=== PATIENT | male | born 1985 | race Caucasian/White ===

== ENCOUNTER 2024-11-22 02:09 | Observation (INO) | payer OTHER ==
[2024-11-22 02:19] VITALS: TEMP 97.8
--- NOTE | 2024-11-22 03:33 | ED ---
General Adult HPI - General Chief complaint: Psychiatric Symptoms Stated complaint: SI Time Seen by Provider: 11/22/24 02:34 Source: patient Mode of arrival: EMS - History of Present Illness Initial comments: Patient is a 39-year-old gentleman presenting today for suicidal thoughts and anxiety. States that he does not have a plan though feels like he does not want to be alive. Has worsened over the last 2 weeks especially over [place]. States he also has been getting panic attacks and when he feels especially emotional has episodes of syncope. Denies hx sudden cardiac , seizures. Denies tongue biting or incontinence with episodes of syncope. Denies chest pain or GALLO. Denies illicit drug use or alcohol use. Denies recent head trauma from episodes of syncope. Denies homicidal ideations, visual or auditory hallucinations. - Related Data Previous Rx's Medication Instructions Recorded Acetaminophen Tab [Tylenol] 650 mg PO Q6HR PRN tab 11/23/24 Calcium Carbonate [Tums] 1,000 mg PO Q4HR PRN tab 11/23/24 Famotidine [Pepcid] 20 mg PO BID tab 11/23/24 Nicotine 14Mg/24Hr Patch [Habitrol] 1 patch TRANSDERM DAILY patch 11/23/24 Allergies Allergy/AdvReac Type Severity Reaction Status Date / Time lisinopril Allergy Unknown - Verified 11/22/24 07:53 see comment Review of Systems ROS Statement: Those systems with pertinent positive or pertinent negative responses have been documented in the HPI. ROS Other: All systems not noted in ROS Statement are negative. Past Medical History Past Medical History: Hypertension Past Surgical History: No Surgical Hx Reported Smoking Status: Vaper Past Alcohol Use History: None Reported, Occasional Past Drug Use History: Marijuana General Exam - General Exam Comments Initial Comments: PE: CONSTITUTIONAL: No apparent distress, well appearing, somewhat disheveled SKIN: Warm, dry, no jaundice, hives or petechiae EYES: Pupils are equally round, extraocular movements intact without nystagmus, clear conjunctiva, non-icteric sclera HENT: Normocephalic, atraumatic, moist mucus membranes, oropharynx clear without exudates NECK: , Full range of motion, normal appearance PULMONARY: Clear to auscultation without wheezes, rhonchi, or rales, normal excursion, no accessory muscle use and no stridor CARDIOVASCULAR: Regular rate, rhythm, normal S1 and S2. No appreciated murmurs, rubs or gallops. Extremities well perfused, No lower extremity edema GASTROINTESTINAL: Soft, active bowel sounds throughout, non-tender, non- distended, no palpable masses, no rebound or guarding. No hepatosplenomegaly GENITOURINARY: MUSCULOSKELETAL: Extremities have no gross deformity, no edema, redness, or swelling. No calf swelling NEUROLOGIC:_a/o x 3, GCS 15, normal mentation and speech. Moves all extremities x 4 without motor or sensory deficit PSYCHIATRIC: Tearful and sad mood and affect, thought process is clear and linear, suicidal thoughts without a plan Course Vital Signs 11/22/24 11/22/24 11/22/24 02:10 06:19 13:25 Temperature 97.8 F Pulse Rate 120 H 98 89 Respiratory 18 17 18 Rate Blood Pressure 177/129 102/54 111/64 Blood Pressure [Right Arm Sitting] Blood Pressure [Right Arm Standing] Blood Pressure [Right Arm Supine] O2 Sat by Pulse 96 98 99 Oximetry 11/22/24 11/22/24 11/22/24 16:00 20:43 23:13 Temperature Pulse Rate 86 107 H 93 Respiratory 18 16 18 Rate Blood Pressure 119/65 148/85 124/70 Blood Pressure 106/68 [Right Arm Sitting] Blood Pressure 110/78 [Right Arm Standing] Blood Pressure 119/65 [Right Arm Supine] O2 Sat by Pulse 99 97 99 Oximetry 11/23/24 11/23/24 11/23/24 06:04 09:46 14:01 Temperature 97.8 F Pulse Rate 72 74 73 Respiratory 17 16 18 Rate Blood Pressure 111/86 104/72 114/72 Blood Pressure [Right Arm Sitting] Blood Pressure [Right Arm Standing] Blood Pressure [Right Arm Supine] O2 Sat by Pulse 99 99 Oximetry EKG Findings - EKG Comments: EKG Findings:: Sinus rhythm, rate 90 bpm, NV interval 181 41 ms, QT/QTc 327/375 ms, normal axis, no ST elevations or depressions, no arrhythmia, artifact present throughout Medical Decision Making - Medical Decision Making Was pt. sent in by a medical professional or institution (, PA, ESTATE ADMINISTRATOR, urgent care, hospital, or longterm...) When possible be specific @ -No Did you speak to anyone other than the patient for history (EMS, parent, family, police, friend...)? What history was obtained from this source @ -No Did you review nursing and triage notes (agree or disagree)? Why? @ -I reviewed and agree with nursing and triage notes Were old charts reviewed (outside hosp., previous admission, EMS record, old EKG, old radiological studies, urgent care reports/EKG's, longterm records)? Report findings @Medical records reviewed Differential Diagnosis (chest pain, altered mental status, abdominal pain women, abdominal pain men, vaginal bleeding, weakness, fever, dyspnea, syncope, headache, dizziness, GI bleed, back pain, seizure, CVA, palpatations, mental health, musculoskeletal)? @ -Differential Mental Health Depression, anxiety, bipolar, psychosis, schizophrenia, borderline personality, situational depression, adjustment disorder, behavioral disorder, brain tumor, malingering, substance abuse, encephalopathy, medication reaction, dementia, hypothyroidism, degenerative neurologic disorder, lupus.... This is not meant to be all-inclusive list EKG interpreted by me (3pts min.). @ -As above X-rays interpreted by me (1pt min.). none CT interpreted by me (1pt min.). @ -None done U/S interpreted by me (1pt. min.). @ -None done What testing was considered but not performed or refused? (CT, X-rays, U/S, labs)? Why? @Considered chest x-ray however patient has no chest pain, shortness of breath, no significant cardiac history and episodes of syncope are most consistent with vasovagal syncope What meds were considered but not given or refused? Why? @ -None Did you discuss the management of the patient with other professionals (professionals i.e. , PA, ESTATE ADMINISTRATOR, lab, RT, psych nurse, manager social work, manager psychiatry, teacher, administrative officer, patient case coordinator)? Give summary @ Yes case discussed wt EPS RN Was smoking cessation discussed for >3mins.? @ -No Was critical care preformed (if so, how long)? @ -No Were there social determinants of health that impacted care today? How? (Homelessness, low income, unemployed, alcoholism, drug addiction, transportation, low edu. Level, literacy, decrease access to med. care, senior care, rehab)? @ -No Was there de-escalation of care discussed even if they declined (Discuss DNR or withdrawal of care, Hospice)? @ -No What co-morbidities impacted this encounter? (DM, HTN, Smoking, COPD, CAD, Cancer, CVA, ARF, Chemo, Hep., AIDS, mental health diagnosis, sleep apnea, morbid obesity)? @ Depression, anxiety Was patient admitted / discharged? Hospital course, mention meds given and route, prescriptions, significant lab abnormalities, going to OR and other pertinent info. Admission- Pt s a 39-year-old gentleman w/ PMH anxiety and depression presenting for SI. States he is also a multiple syncopal episodes in the last few months when he feels stressed out or is especially emotional. Will plan for EPS evaluation however will obtain basic labs and EKG due to patient's episode of syncope, though description of episodes is consistent w/ vasovagal syncope Labs and imaging reviewed. Grossly within normal limits. Abnormal values not concerning for acute pathology related to presenting complaint. Patient was interviewed by EPS, he did tell them that he took 40 tablets of ibuprofen 2 days ago. Tylenol and salicylate levels were added on. After ev aluation by EPS and discussion with psychiatry, psychiatrist requested medical admission due to patient's episodes of syncope. Patient endorsed to EPS RN that he also had 80 pound unintentional weight loss over the last year. Patient's labs are reassuring, including a normal TSH however due to psychiatry request will plan for admission to medicine. Discussed with Dr. Oropeza, kindly accepts patient for admission. Undiagnosed new problem with uncertain prognosis? @ -No Drug Therapy requiring intensive monitoring for toxicity (Heparin, Nitro, Insulin, Cardizem)? @ -No Were any procedures done? @ -No Diagnosis/symptom? @ -SI, syncope Acute, or Chronic, or Acute on Chronic? @ -Default Uncomplited (without systemic symptoms) or Complicated (systemic symptoms)? @complicated Side effects of treatment? @ -No Exacerbation, Progression, or Severe Exacerbation? @ -No Poses a threat to life or bodily function? How? (Chest pain, [place], [place], pneumonia, PE, COPD, DKA, ARF, appy, cholecystitis, CVA, Diverticulitis, Homicidal, Suicidal, threat to staff... and all critical care pts) Yes, if SI was untreated could result in suicide attempt and - Lab Data Result diagrams: 11/22/24 03:49 11/22/24 03:49 Lab Results 11/22/24 11/22/24 11/22/24 Range/Units 03:47 03:49 03:49 WBC 9.7 (3.8-10.6) k/uL RBC 4.75 (4.30-5.90) m/uL Hgb 14.1 (13.0-17.5) gm/dL Hct 41.0 (39.0-53.0) % MCV 86.3 (80.0-100.0) fL MCH 29.6 (25.0-35.0) pg MCHC 34.3 (31.0-37.0) g/dL RDW 12.2 (11.5-15.5) % Plt Count 377 (150-450) k/uL MPV 7.1 Neutrophils % 68 % Lymphocytes % 21 % Monocytes % 5 % Eosinophils % 3 % Basophils % 1 % Neutrophils # 6.6 (1.3-7.7) k/uL Lymphocytes # 2.0 (1.0-4.8) k/uL Monocytes # 0.5 (0-1.0) k/uL Eosinophils # 0.3 (0-0.7) k/uL Basophils # 0.1 (0-0.2) k/uL PT 10.4 (10.0-12.5) sec INR 0.9 (<1.2) APTT 23.9 (22.0-30.0) sec Sodium (137-145) mmol/L Potassium (3.5-5.1) mmol/L Chloride (98-107) mmol/L Carbon Dioxide (22-30) mmol/L Anion Gap mmol/L BUN (9-20) mg/dL Creatinine (0.66-1.25) mg/dL Est GFR (CKD-EPI)AfAm (>60 ml/min/1.73 sqM) Est GFR (CKD-EPI)NonAf (>60 ml/min/1.73 sqM) Glucose (74-99) mg/dL POC Glucose (mg/dL) 104 (70-110) mg/dL POC Glu Master Of Ceremonies ID Jonny Cortez Calcium (8.4-10.2) mg/dL Magnesium (1.6-2.3) mg/dL Total Bilirubin (0.2-1.3) mg/dL AST (17-59) U/L ALT (4-49) U/L Alkaline Phosphatase (38-126) U/L Total Protein (6.3-8.2) g/dL Albumin (3.5-5.0) g/dL TSH (0.465-4.680) mIU/L Salicylates mg/dL Acetaminophen ug/mL Influenza Type A (PCR) (Not Detectd) Influenza Type B (PCR) (Not Detectd) RSV (PCR) (Not Detectd) SARS-CoV-2 (PCR) (Not Detectd) 11/22/24 11/22/24 11/22/24 Range/Units 03:49 03:49 05:06 WBC (3.8-10.6) k/uL RBC (4.30-5.90) m/uL Hgb (13.0-17.5) gm/dL Hct (39.0-53.0) % MCV (80.0-100.0) fL MCH (25.0-35.0) pg MCHC (31.0-37.0) g/dL RDW (11.5-15.5) % Plt Count (150-450) k/uL MPV Neutrophils % % Lymphocytes % % Monocytes % % Eosinophils % % Basophils % % Neutrophils # (1.3-7.7) k/uL Lymphocytes # (1.0-4.8) k/uL Monocytes # (0-1.0) k/uL Eosinophils # (0-0.7) k/uL Basophils # (0-0.2) k/uL PT (10.0-12.5) sec INR (<1.2) APTT (22.0-30.0) sec Sodium 137 (137-145) mmol/L Potassium 4.1 (3.5-5.1) mmol/L Chloride 104 (98-107) mmol/L Carbon Dioxide 22 (22-30) mmol/L Anion Gap 11 mmol/L BUN 12 (9-20) mg/dL Creatinine 0.68 (0.66-1.25) mg/dL Est GFR (CKD-EPI)AfAm >90 (>60 ml/min/1.73 sqM) Est GFR (CKD-EPI)NonAf >90 (>60 ml/min/1.73 sqM) Glucose 104 H (74-99) mg/dL POC Glucose (mg/dL) (70-110) mg/dL POC Glu Master Of Ceremonies ID Calcium 9.3 (8.4-10.2) mg/dL Magnesium 1.8 (1.6-2.3) mg/dL Total Bilirubin 0.3 (0.2-1.3) mg/dL AST 23 (17-59) U/L ALT 18 (4-49) U/L Alkaline Phosphatase 85 (38-126) U/L Total Protein 6.9 (6.3-8.2) g/dL Albumin 3.9 (3.5-5.0) g/dL TSH 1.450 (0.465-4.680) mIU/L Salicylates <1.0 mg/dL Acetaminophen <10.0 ug/mL Influenza Type A (PCR) Not Detected (Not Detectd) Influenza Type B (PCR) Not Detected (Not Detectd) RSV (PCR) Not Detected (Not Detectd) SARS-CoV-2 (PCR) Not Detected (Not Detectd) Disposition Clinical Impression: Suicidal ideation, Syncope Disposition: ADMITTED IP TO THIS HOSP Condition: Stable
[2024-11-22 03:55] LABS: Glucose,Whole Blood 104 mg/dL (70-110)
[2024-11-22 04:01] LABS: Basophils # (A) 0.1 k/uL (0-0.2); Basophils % (A) 1 %; Eosinophils # (A) 0.3 k/uL (0-0.7); Eosinophils % (A) 3 %; HGB 14.1 gm/dL (13.0-17.5); Lymphocytes % (A) 21 %; MCH 29.6 pg (25.0-35.0); MCHC 34.3 g/dL (31.0-37.0); MCV 86.3 fL (80.0-100.0); Mean Platelet Volume 7.1; Monocytes # (A) 0.5 k/uL (0-1.0); Monocytes % (A) 5 %; Neutrophils # (A) 6.6 k/uL (1.3-7.7); Neutrophils % (A) 68 %; Platelet Count 377 k/uL (150-450); RBC 4.75 m/uL (4.30-5.90); RDW 12.2 % (11.5-15.5); WBC 9.7 k/uL (3.8-10.6)
[2024-11-22 04:16] LABS: INR 0.9 (<1.2); Partial Thromboplastin Time 23.9 sec (22.0-30.0); Prothrombin Time 10.4 sec (10.0-12.5)
[2024-11-22 04:19] LABS: ALT 18 U/L (4-49); AST 23 U/L (17-59); African American GFR (CKD) >90 (>60 ml/min/1.73 sqM); Albumin 3.9 g/dL (3.5-5.0); Alkaline Phosphatase 85 U/L (38-126); Anion Gap 11 mmol/L; Blood Urea Nitrogen 12 mg/dL (9-20); Calcium 9.3 mg/dL (8.4-10.2); Carbon Dioxide 22 mmol/L (22-30); Chloride 104 mmol/L (98-107); Glucose 104 mg/dL (74-99); Magnesium 1.8 mg/dL (1.6-2.3); Non-African American GFR(CKD) >90 (>60 ml/min/1.73 sqM); Potassium 4.1 mmol/L (3.5-5.1); Sodium 137 mmol/L (137-145); Total Bilirubin 0.3 mg/dL (0.2-1.3); Total Protein 6.9 g/dL (6.3-8.2)
[2024-11-22] MEDS: LORazepam 1 MG TAB PO STA (05:04)
[2024-11-22 05:14] LABS: Acetaminophen <10.0 ug/mL; Salicylate <1.0 mg/dL
[2024-11-22] MEDS ORDERED: MAG HYDROX/AL HYDROX/SIMETH 30 ML CUP PO PRN (07:29)
[2024-11-22] MEDS ORDERED: PROCHLORPERAZINE 5 MG TAB PO PRN (07:29)
[2024-11-22] MEDS ORDERED: CALCIUM CARBONATE 500 MG CHEWABLE PO PRN (07:29)
[2024-11-22] MEDS ORDERED: ACETAMINOPHEN TAB 325 MG TAB PO PRN (07:29)
[2024-11-22] MEDS ORDERED: NALOXONE 0.4 MG/ML 1 ML VIAL IV PRN (07:29)
[2024-11-22] MEDS: FAMOTIDINE 20 MG TAB PO SCH (09:25)
--- NOTE | 2024-11-22 11:12 | P.HPIM ---
History of Present Illness H&P Date: 11/22/24 Patient is a 39-year-old male with no significant medical history presented for suicidal ideations. Patient claims that oftentimes he gets worked up which leads to episodes of syncope. He can sometimes have 2 episodes of syncope per day. He denies any significant other prodromal symptoms. Occasionally he does experience palpitations. Denies any shortness of breath, chest pain, abdominal pain, nausea, vomiting, urinary or bowel complaints. He has been having suicidal ideations for the some time, but does not have any plan. Denies any auditory or visual hallucinations. In the ED, temperature was 97.8, pulse 120, respiratory rate 18, blood pressure 102/54, saturating at 96% on room air. WBC 9.7, hemoglobin 14.1, platelet 377, potassium 4.1, creatinine 0.68, TSH 1.45, blood sugars 104, magnesium 1.8, negative for salicylates and Tylenol, negative for respiratory viral panel. Patient admitted for further syncope workup. Psychiatry and cardiology consulted. Pertinent positives and negatives as discussed in HPI, a complete review of systems was performed and all other systems are negative. Patient seen and examined at bedside. Vital signs reviewed General: nontoxic, no distress, appears at stated age Derm: warm, dry Head: atraumatic, normocephalic, symmetric Eyes: EOMI, no lid lag, anicteric sclera, pupils equal round reactive to light ENT: Nose and ears atraumatic Neck: No thyromegaly, supple Mouth: no lip lesion, mucus membranes moist Cardiovascular: S1S2 reg, no murmur, no edema Lungs: clear to auscultation bilateral, no rhonchi, no rales, no wheeze, no accessory muscle use Abdominal: soft, nontender to palpation, no guarding, no appreciable organom egaly Ext: no gross muscle atrophy, muscle strength muscle strength 5 out of 5 in all 4 extremities, no contractures Neuro: CN II-XII grossly intact Psych: Alert, oriented, cooperative Assessment/Plan: Active: Syncope -Likely vasovagal -Continue telemetry monitoring -Orthostatic vitals pending -Echocardiogram pending -Cardiology consulted, pending recommendations Suicidal ideations -Psychiatry consulted -Suicide precautions, sitter at bedside Anxiety disorder -On Xanax 0.25 mg p.o. every 6 hours as needed Dyspepsia -Continue Pepcid 20 mg twice daily, Tums as needed, Maalox as needed The patient is admitted with an anticipated less than 2 midnight stay as observation status for evaluation of syncope. CODE STATUS: Full code DVT prophylaxis: SCDs, patient ambulatory Anticipated discharge date: 24 to [address]: [facility] A total of 65 minutes was spent on the care of this complex patient more than 50% of the time was spent in counseling and care coordination. Past Medical History Past Medical History: Hypertension Past Surgical History: No Surgical Hx Reported Smoking Status: Vaper Past Alcohol Use History: None Reported, Occasional Past Drug Use History: Marijuana Medications and Allergies Home Medications Medication Instructions Recorded Confirmed Type No Known Home Medications 11/22/24 11/22/24 History Allergies Allergy/AdvReac Type Severity Reaction Status Date / Time lisinopril Allergy Unknown - Verified 11/22/24 07:53 see comment Physical Exam Vitals: Vital Signs Temp Pulse Resp BP Pulse Ox 11/22/24 06:19 98 17 102/54 98 11/22/24 02:10 97.8 F 120 H 18 177/129 96 Intake and Output 11/21/24 11/22/24 11/22/24 22:59 06:59 14:59 Other: Weight 54.431 kg Results CBC & Chem 7: 11/22/24 03:49 11/22/24 03:49 Labs: Abnormal Lab Results - Last 24 Hours (Table) 11/22/24 Range/Units 03:49 Glucose 104 H (74-99) mg/dL
--- NOTE | 2024-11-22 11:37 | P.CRDCN ---
History of Present Illness History of present illness: HISTORY OF PRESENT ILLNESS: This is a 39-year-old male with a past medical history significant for hypertension, marijuana use, nicotine dependence in the form of vaping, and depression. 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 We have been asked to see the patient in consultation for syncope. Patient examined at the bedside in the emergency room. Patient presented to the hospital with a chief complaint of suicidal ideation. He is awaiting psychiatric evaluation. The patient currently denies any chest pain or pressure. He denies any shortness of breath. Currently denies any dizziness or lightheadedness. The patient does report a history of having frequent syncopal episodes. He states the last time he passed out was on while his kids were opening presents. He states that he was just sitting down when this happened. He states that he can feel it comi ng on and states that he usually gets a very warm feeling throughout his body but denies feeling dizzy or lightheaded. The patient does have a history of hypertension but states he does not take any antihypertensive medications on an outpatient basis. DIAGNOSTICS: - EKG reveals sinus mechanism with no signs of acute ischemia - Laboratory data: WBC 9.7. Hemoglobin 14.1. Platelet count 377. Sodium 137. Potassium 4.1. BUN 12. Creatinine 0.68. Magnesium 1.8. TSH 1.450. - Current home cardiac medications include none - No previous echocardiogram, stress test, or cardiac catheterization available in EMR for review REVIEW OF SYSTEMS: At the time of my exam: CONSTITUTIONAL: Denies fever or chills. HEENT: Denies blurred vision, vision changes, or eye pain. Denies hemoptysis CARDIOVASCULAR: Denies chest pain. Denies orthopnea. Denies PND. Denies palpitations RESPIRATORY: Denies shortness of breath. GASTROINTESTINAL: Denies abdominal pain. Denies nausea or vomiting. HEMATOLOGIC: Denies bleeding disorders. GENITOURINARY: Denies any blood in urine. SKIN: Denies pruitis. Denies rash. PHYSICAL EXAM: VITAL SIGNS: Reviewed. GENERAL: Well-developed in no acute distress. HEENT: Head is normocephalic. Pupils are equal, round. Sclerae anicteric. Mucous membranes of the mouth are moist. Neck supple. No JVD or thyromegaly LUNGS: Respirations even and unlabored. Lungs essentially clear to auscultation bilaterally. HEART: Regular rate and rhythm. S1 and S2 heard. ABDOMEN: Soft. Nondistended. Nontender. EXTREMITIES: Normal range of motion. No clubbing or cyanosis. Peripheral pu lses intact. No lower extremity edema NEUROLOGIC: Awake and alert. Oriented x 3. ASSESSMENT: Depression with suicidal ideation History of syncope History of hypertension, not on antihypertensive medications outpatient History of marijuana use Nicotine dependence in the form of vaping PLAN: Obtain 2D echo to assess cardiac structure and function Psychiatry has been consulted. Await evaluation Continue telemetry monitoring to assess for any arrhythmias Obtain orthostatic blood pressures Trend troponins Further recommendations pending patient course Nurse practitioner note has been reviewed by physician. Signing provider agrees with the documented findings, assessment, and plan of care documented by RELATIONS SPECIALIST as a scribe. Past Medical History Past Medical History: Hypertension Past Surgical History: No Surgical Hx Reported Smoking Status: Vaper Past Alcohol Use History: None Reported, Occasional Past Drug Use History: Marijuana Medications and Allergies Home Medications Medication Instructions Recorded Confirmed Type No Known Home Medications 11/22/24 11/22/24 History Allergies Allergy/AdvReac Type Severity Reaction Status Date / Time lisinopril Allergy Unknown - Verified 11/22/24 07:53 see comment Physical Exam Vitals: Vital Signs Temp Pulse Resp BP Pulse Ox 11/22/24 06:19 98 17 102/54 98 11/22/24 02:10 97.8 F 120 H 18 177/129 96 Intake and Output 11/21/24 11/22/24 11/22/24 22:59 06:59 14:59 Other: Weight 54.431 kg Results 11/22/24 03:49 11/22/24 03:49 Cardiac Enzymes 11/22/24 Range/Units 03:49 AST 23 (17-59) U/L Coagulation 11/22/24 Range/Units 03:49 PT 10.4 (10.0-12.5) sec APTT 23.9 (22.0-30.0) sec CBC 11/22/24 Range/Units 03:49 WBC 9.7 (3.8-10.6) k/uL RBC 4.75 (4.30-5.90) m/uL Hgb 14.1 (13.0-17.5) gm/dL Hct 41.0 (39.0-53.0) % Plt Count 377 (150-450) k/uL Comprehensive Metabolic Panel 11/22/24 Range/Units 03:49 Sodium 137 (137-145) mmol/L Potassium 4.1 (3.5-5.1) mmol/L Chloride 104 (98-107) mmol/L Carbon Dioxide 22 (22-30) mmol/L BUN 12 (9-20) mg/dL Creatinine 0.68 (0.66-1.25) mg/dL Glucose 104 H (74-99) mg/dL Calcium 9.3 (8.4-10.2) mg/dL AST 23 (17-59) U/L ALT 18 (4-49) U/L Alkaline Phosphatase 85 (38-126) U/L Total Protein 6.9 (6.3-8.2) g/dL Albumin 3.9 (3.5-5.0) g/dL Current Medications Generic Name Dose Route Start Last Admin Trade Name Freq PRN Reason Stop Dose Admin Acetaminophen 650 mg 11/22/24 07:29 Acetaminophen Tab 325 Mg Tab PO Q6HR PRN Mild Pain or Fever > 100.5 Al Hydroxide/Mg Hydroxide 15 ml 11/22/24 07:29 Mag Hydrox/Al Hydrox/Simeth 30 Ml Cup PO Q6HR PRN Indigestion Alprazolam 0.25 mg 11/22/24 07:29 Alprazolam 0.25 Mg Tab PO Q6HR PRN Anxiety Calcium Carbonate/Glycine 1,000 mg 11/22/24 07:29 Calcium Carbonate 500 Mg Chewable PO Q4HR PRN Dyspepsia Famotidine 20 mg 11/22/24 09:00 Famotidine 20 Mg Tab PO BID HARI Naloxone HCl 0.2 mg 11/22/24 07:29 Naloxone 0.4 Mg/Ml 1 Ml Vial IV Q2M PRN Opioid Reversal Prochlorperazine Maleate 5 mg 11/22/24 07:29 Prochlorperazine 5 Mg Tab PO Q8HR PRN Nausea And Vomiting Intake and Output 11/21/24 11/22/24 11/22/24 22:59 06:59 14:59 Other: Weight 54.431 kg 11/22/24 03:49 11/22/24 03:49
--- NOTE | 2024-11-22 13:55 | P.CN ---
Psychiatric Consult - . Consult:: IDENTIFYING DATA: This patient is a 39 year old man, resides with his and 4 children, and is presently unemployed. REASON FOR REFERRAL: Psychiatry was consulted for suicidal ideation HISTORY OF PRESENT ILLNESS: Phan Schuler is a 39 year old man with a history of anxiety, depression, and alcohol use disorder in remission, who presented to the ER on 11/22/24 with suicidal ideation. A Psychiatry consult was requested for evaluation. Mr. Schuler reports having had suicidal thoughts for a couple of days prior to coming to the emergency department. He "thought everything would be better without me" and this prompted him to come in and seek help. He reports having had a recent suicide attempt in October 2024 stated he "read somewhere he could take so many ibuprofen" and he proceeded to take over 50 ibuprofen in an effort to end his life. Reports that nothing happened as a result of the ingestion and he did not seek medical or psychiatric care after this incident. In addition to the suicidal ideation, which he denies experiencing at this moment. He does report worsening of his depressive symptoms over the last year. This is also when he started to experience more frequent suicidal ideation. He notices that the thoughts of not wanting to be alive seem to play in his head like "I recorded tape". He sometimes thinks about using "what is around or easy" though he denies having had identified method, intent, or plan earlier this morning. In regards to symptoms, he reports a variable sleep pattern where he either sleeps excessively or not at all per (he may go up to 2 days without sleep). He has lost interest in things that used to be bring him enjoyment, endorses significant guilt and self blame, feels his energy level is very low "drained", and he has had worsening difficulty with concentration and focus. In addition his appetite is very variable and may go from "starving" to not eating at all. He recently sought treatment for his depression and anxiety through [facility] and was started on Cymbalta which started to help. However he has not been on medication for several months now because his medications inadvertently got wet and thus were unusable and he has not been able to reengage in care. While he was on the Cymbalta he noticed that his mood was not as low but he did feel the dose probably need to be increased for him to feel as well as possible. He denies having taken other medication to address his depression or anxiety. In addition to depression, he reports feeling "constantly worried" about a myriad of stressors including finances and relationship strain. He denies experiencing auditory or visual hallucinations with the exception of sometimes feeling a little disoriented when he is waking up from sleep. He denies any history of prolonged decreased need for sleep that is accompanied by an increase in goal-directed activity. He does report feeling "flustered, overwhelmed, and cannot focus" much of the time particularly since his depressive symptoms worsen. In addition to the above he notes that "if I get really upset I tend to break things". Pattern has been present as long as he can remember and is unsure when it started. He has been experiencing panic attacks a few times per week which she associates with feeling overwhelmed, feeling as if a "chain is being tightened" around his body, feeling as if he cannot breathe, and does not want anyone to see him that way. As result he tries not to leave home and has gone up to a month without leaving the house before though most recently has had to come and go. He denies a history of trauma. He reports having stopped drinking alcohol about 6 to 9 months ago but prior to that point had been drinking 15-20 beers and 1/5 of alcohol per day for about 10 years. He denies having experienced any withdrawal symptoms or requiring medical care to address withdrawal. He denies using marijuana or other drugs. He is interested in psychiatric treatment and would like to resume medication with the goal of improving how he is feeling and decreasing the depressive symptoms. PAST PSYCHIATRIC HISTORY: Patient has a history of anxiety and depression and began treatment through [facility] several months ago. He denies any history of inpatient psychiatric admission. He has not been seen on an outpatient basis for a few months. He started taking Cymbalta which have been recently prescribed and noticed a difference in his mood but was unable to continue the medication as his supply got damaged. He has a history of at least 1 prior suicide attempts occurring in October 2024 during which he intentionally overdosed on more than 50 ibuprofen tablets and did not seek medical or psychiatric attention. PAST MEDICAL HISTORY: Hypertension (not currently being treated), migraines ALLERGIES: Lisinopril CHEMICAL DEPENDENCY HISTORY: Patient reports having consumed 15-20 beers and 1/5 of alcohol on a daily basis for about 10 years. He explained that he stopped drinking 6 to 9 months ago. He denies having experienced any alcohol withdrawal symptoms at any point during the period that he was drinking on a daily basis nor after he stopped. He denies any current or past use of marijuana. He denies use of cocaine, heroin, LSD, PCP, methamphetamine, or other drugs or medications not prescribed for him. FAMILY PSYCHIATRIC/SUBSTANCE USE HISTORY: He denies any known family history of mental health diagnoses. His maternal grandfather had difficulties with alcohol. He denies any known family history of suicide. SOCIAL HISTORY: Patient was raised by his mother and reports having experienced a loving home environment during his childhood. 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 His employment ended a year ago because he was having panic attacks at work and was unable to complete his duties. He presently resides with his and 4 children (2 adolescence and 2 smaller children). Currently experiencing financial hardship. He denies any history of legal issues. He denies having access to firearms. MENTAL STATUS EXAM: General Appearance: Patient appears to be stated age is alert, pleasant, and cooperative. Patient appears to have fair hygiene and grooming wearing hospital gown with fair eye contact. Behavior: Patient is calmly lying in bed without any agitated behavior. Speech: Patient's speech is fluent and nonpressured. Mood/Affect: Patient reports their mood is "depressed", affect is congruent and tearful Suicidality/Homicidality: Patient denies having suicidal or homicidal ideation, intent, or plan at this moment. Perceptions: Patient denies any visual hallucinations and denies any auditory hallucinations Though content/process: There is no evidence of any delusional thought content and thought process is linear and goal-directed. Memory and concentration: AOX3, grossly intact for the purposes of this session. Able to recall recent and remote events. Judgment and insight: Impaired IMPRESSIONS: Phan Schuler is a 39 man with a history of depression and anxiety who presented to the emergency department with suicidal ideation. He is presently being evaluated by the medical team due to concern for syncopal events. Of significant concern is the patient's recent suicide attempt in October 2024 during which he attempted to intentionally overdose and did not seek medical or psychiatric attention after that event. He notes having worsening depression and an increase in suicidal ideation over the last year. He had been engaged in care with [facility] but has not been seen in nor has he taken medication in several months. His symptoms are complicated by psychosocial stressors including relationship strain and unemployment which has resulted in financial hardship. Additionally, he has a long history of daily alcohol use but reports he has been in remission for at least the last 6 months. Mr. Schuler has multiple risk factors for self-directed violence including prior suicide attempt, unemployment, relationship discord, financial hardship, not presently engaged in treatment, and impulsivity. He is interested in being admitted for psychiatric care and to restart his medication and stabilize his symptoms. - Major depressive disorder, severe, with anxious distress (rule out a primary anxiety disorder) - Panic attacks - Alcohol use disorder, in sustained remission - Rule out Intermittent explosive disorder PLAN: -At this time patient DOES meet criteria for inpatient psychiatric admission. -Would recommend the following medication changes/additions: Will defer addition of psychotropic medication until patient is admitted to the Mental Health Unit given present cardiac concerns -Continue 1:1 sitter for safety -Cannot leave AMA at this time. Patient will need a petition and certification if attempting to leave AMA. -When medically stable, patient is eligible for transfer to a psych bed when available. -Communicated plan to patient's nurse -Will follow peripherally in anticipation of transfer to a psychiatric bed. -Please contact with any questions. 11/22/24 13:54
[2024-11-22] MEDS: MELATONIN 5 MG TABLET PO SCH (22:26)
[2024-11-22] MEDS: NICOTINE 14MG/24HR PATCH TRANSDERM SCH (22:26)
[2024-11-23] MEDS: ALPRAZolam 0.25 MG TAB PO PRN (01:36)
--- NOTE | 2024-11-23 07:51 | CA ---
Transthoracic Echo Report Name: Phan Schuler Age: 39 Gender: M : 1985 Exam Date: 11/22/2024 14:55 Exam Location: [place] [facility] Ht (in): 65 Wt (lb): 120 Ordering Physician: Tina Ambriz Attending/Referring Phys: [id number], Pb [employer] Entry Oliva Dorsey, ARMANI Procedure CPT: Indications: LV function, history of syncope Cardiac Hx: Technical Quality: Good Contrast 1: Total Dose (mL): Contrast 2: Total Dose (mL): MEASUREMENTS (Male / Female) Normal Values 2D ECHO LV Diastolic Diameter PLAX 4.6 cm 4.2 - 5.9 / 3.9 - 5.3 cm LV Systolic Diameter PLAX 2.8 cm IVS Diastolic Thickness 1.1 cm 0.6 - 1.0 / 0.6 - 0.9 cm LVPW Diastolic Thickness 1.0 cm 0.6 - 1.0 / 0.6 - 0.9 cm LV Relative Wall Thickness 0.5 RV Internal Dim ED PLAX 3.7 cm LA Systolic Diameter LX 3.4 cm 3.0 - 4.0 / 2.7 - 3.8 cm LV Diastolic Volume MOD 4C 107.5 cm??? LV Systolic Volume MOD 4C 54.4 cm??? LV Ejection Fraction MOD 4C 49.4 % LV Cardiac Index MOD 4C 2897.0 cm???/min???m??? LV Diastolic Length 4C 8.2 cm LV Systolic Length 4C 6.5 cm LV Diastolic Volume MOD 2C 85.2 cm??? LV Systolic Volume MOD 2C 37.3 cm??? LV Ejection Fraction MOD 2C 56.2 % LV Cardiac Index MOD 2C 2612.8 cm???/min???m??? LV Diastolic Length 2C 8.2 cm LV Systolic Length 2C 6.5 cm M-MODE Aortic Root Diameter MM 3.3 cm AV Cusp Separation MM 2.4 cm DOPPLER AV Peak Velocity 131.6 cm/s AV Peak Gradient 6.9 mmHg Mitral E Point Velocity 62.1 cm/s Mitral A Point Velocity 54.6 cm/s Mitral E to A Ratio 1.1 MV Deceleration Time 265.7 ms MV E' Velocity 9.9 cm/s Mitral E to MV E' Ratio 6.3 TR Peak Velocity 219.1 cm/s TR Peak Gradient 19.2 mmHg Right Ventricular Systolic Press 29.2 mmHg FINDINGS Left Ventricle Left ventricular ejection fraction is estimated at 55-60 %. Left ventricular cavity size normal. Left ventricular wall thickness normal. Normal left ventricular wall motion. Right Ventricle Mild right ventricular dilatation. Right ventricular systolic pressure within normal limits. Right Atrium Normal right atrial size. No right atrial thrombus or mass seen. Left Atrium Normal left atrial size. Left atrial size at the upper limits of normal. Mitral Valve Structurally normal mitral valve. Trace mitral regurgitation. Aortic Valve Trileaflet aortic valve. Trace to mild aortic regurgitation. Tricuspid Valve Structurally normal tricuspid valve. Trace to mild tricuspid regurgitation. Pulmonic Valve Structurally normal pulmonic valve. No pulmonic regurgitation. Pericardium No pericardial or pleural effusion. Aorta Normal size aortic root and proximal ascending aorta. CONCLUSIONS Normal biventricular systolic function Mildly dilated right ventricle No significant valvular abnormalities noted Normal pulmonary artery systolic pressure No pericardial effusion seen Previewed by: Dr. Manfred Salter MD (Electronically Signed) Final Date: 23 November 2024 07:50
--- NOTE | 2024-11-23 10:53 | P.PN ---
Subjective HISTORY OF PRESENT ILLNESS: This is a 39-year-old male with a past medical history significant for hypertension, marijuana use, nicotine dependence in the form of vaping, and depression. Patient does not follow with a corporate travel coordinator. We have been asked to see the patient in consultation for syncope. Patient examined at the bedside in the emergency room. Patient presented to the hospital with a chief complaint of suicidal ideation. He is awaiting psychiatric evaluation. The patient currently denies any chest pain or pressure. He denies any shortness of breath. Currently denies any dizziness or lightheadedness. The patient does report a history of having frequent syncopal episodes. He states the last time he passed out was on while his kids were opening presents. He states that he was just sitting down when this happened. He states that he can feel it coming on and states that he usually gets a very warm feeling throughout his body but denies feeling dizzy or lightheaded. The patient does have a history of hypertension but states he does not take any antihypertensive medications on an outpatient basis. DIAGNOSTICS: - EKG reveals sinus mechanism with no signs of acute ischemia - Laboratory data: WBC 9.7. Hemoglobin 14.1. Platelet count 377. Sodium 137. Potassium 4.1. BUN 12. Creatinine 0.68. Magnesium 1.8. TSH 1.450. - Current home cardiac medications include none - No previous echocardiogram, stress test, or cardiac catheterization available in EMR for review 11/23/2024 Patient examined this morning at the bedside. Patient currently denies chest pain or pressure. He denies shortness of breath. Echocardiogram completed revealing ejection fraction 55 to 60%, trace MR, trace to mild AR, trace to mild TR. Troponins are negative x 3. Vital signs are stable. Orthostatic blood pressures are negative. PHYSICAL EXAM: VITAL SIGNS: Reviewed. GENERAL: Well-developed in no acute distress. HEENT: Head is normocephalic. Pupils are equal, round. Sclerae anicteric. Mucous membranes of the mouth are moist. Neck supple. No JVD or thyromegaly LUNGS: Respirations even and unlabored. Lungs essentially clear to auscultation bilaterally. HEART: Regular rate and rhythm. S1 and S2 heard. ABDOMEN: Soft. Nondistended. Nontender. EXTREMITIES: Normal range of motion. No clubbing or cyanosis. Peripheral pulses intact. No lower extremity edema NEUROLOGIC: Awake and alert. Oriented x 3. ASSESSMENT: Depression with suicidal ideation History of syncope History of hypertension, not on antihypertensive medications outpatient History of marijuana use Nicotine dependence in the form of vaping PLAN: 2D echo obtained and reviewed Orthostatic blood pressures negative Patient to receive 30-day event monitor today Patient may be transferred to the mental health unit from a cardiac standpoint once he receives his event monitor We will sign off. Please reconsult if needed. Patient to follow-up postdischarge with Dr. Salter Nurse practitioner note has been reviewed by physician. Signing provider agrees with the documented findings, assessment, and plan of care documented by ASSISTANT MERCHANDISER as a scribe. Objective - Vital Signs Vital signs: Vital Signs Temp 97.8 F 11/23/24 09:46 Pulse 74 11/23/24 09:46 Resp 16 11/23/24 09:46 BP 104/72 11/23/24 09:46 Pulse Ox 99 11/23/24 09:46 FiO2 Intake & Output 11/22/24 11/23/24 11/23/24 18:59 06:59 18:59 Weight 54.431 kg - Labs CBC & Chem 7: 11/22/24 03:49 11/22/24 03:49
--- NOTE | 2024-11-23 13:02 | P.DS ---
Providers Date of admission: 11/22/24 07:33 Expected date of discharge: 11/23/24 Attending physician: Gus Oropeza Consults: 11/22/24 07:29 Consult Physician Routine Consulting Provider: Emmanuel Jim Consult Reason/Comments: SI Do you want consulting provider notified?: Yes, Notify in am Consult Physician Routine Consulting Provider: Christos Arriaga Consult Reason/Comments: Syncope Do you want consulting provider notified?: Yes, Notify in am Primary care physician: Sri Cruz [facility] Course: 39 year old M with no significant PMH presents to [facility] for suicidal ideations and syncopal episodes when he gets worked up. In the ED he underwent extensive evaluation. BP 177/129, HR 120, RR 18, T 97.8F, 96% on RA. CBC, Coag panel, CMP significant for glu 104. TSH 1.45. Trop < 0.012 x 3. Salicylates, Acetaminophen levels neg. COVID, RSV, Flu neg. EKG NSR. Cardiology consulted recommended Echo and Orthostats. Echo showed EF 55-60%. Orthostats was negative. Psyc recommended admission to MHU. Blood pressure improved without any intervention. 1/3 Patient was seen and examined. No acute events overnight. Plans for transfer to MHU today if bed available. Cardiology recommends 30 day event monitor. General: non toxic, no distress, appears at stated age Derm: warm, dry Head: atraumatic, normocephalic, symmetric Eyes: EOMI, no lid lag, anicteric sclera Mouth: no lip lesion, mucus membranes moist Cardiovascular: S1S2 reg, no murmur Lungs: CTA bilateral, no rhonchi, no rales , no accessory muscle use Ext: no gross muscle atrophy, no edema, no contractures Neuro: no focal neuro deficits Psych: Flat affect, anxious, depressed mood Discharge Diagnosis: Vasovagal syncope Suicidal ideations Anxiety disorder Dyspepsia This complex discharge took 35 minutes to complete. Patient Condition at Discharge: Stable Plan - Discharge Summary New Discharge Prescriptions: New Nicotine 14Mg/24Hr Patch [Habitrol] 1 patch TRANSDERM DAILY patch Calcium Carbonate [Tums] 1,000 mg PO Q4HR PRN tab PRN Reason: Dyspepsia Famotidine [Pepcid] 20 mg PO BID tab Acetaminophen Tab [Tylenol] 650 mg PO Q6HR PRN tab PRN Reason: Mild Pain Or Fever > 100.5 Discharge Medication List Acetaminophen Tab [Tylenol] 650 mg PO Q6HR PRN tab 11/23/24 [Rx] Calcium Carbonate [Tums] 1,000 mg PO Q4HR PRN tab 11/23/24 [Rx] Famotidine [Pepcid] 20 mg PO BID tab 11/23/24 [Rx] Nicotine 14Mg/24Hr Patch [Habitrol] 1 patch TRANSDERM DAILY patch 11/23/24 [Rx] Follow up Appointment(s)/Referral(s): Manfred Salter MD [STAFF PHYSICIAN] - 1 Week Sri Anderson DO [Primary Care Provider] - 1-2 days Discharge Disposition: TRANSFER TO PSYCH HOSP/UNIT
[2024-11-23 14:02] VITALS: BP 114/72; PULSE 73; RESP 18
== END 2024-11-23 18:19 ==
LOC: EC 02:09 → 6NMEDSUR 07:33
PROVIDERS: ADMIT Student in an Organized Health Care Education/Training Program; ATTEND Student in an Organized Health Care Education/Training Program
DX: R45.851 Suicidal ideations (principal); R55 Syncope and collapse; R10.13 Epigastric pain; I10 Essential (primary) hypertension; F32.2 Major depressive disorder, single episode, severe without psychotic features; F41.0 Panic disorder [episodic paroxysmal anxiety]; F10.11 Alcohol abuse, in remission; F17.290 Nicotine dependence, other tobacco product, uncomplicated; Z11.52 Encounter for screening for COVID-19; Z56.0 Unemployment, unspecified; Z79.899 Other long term (current) drug therapy
CPT/HCPCS: 82075; 99285; 36415; 93005; 93306; 93270; 80053; 83735; 84443; 84484; 85025; 85610; 85730; 80143; 87636; 80179; G0378 ×2; S4990 ×2

== ENCOUNTER 2024-11-23 17:27 | Inpatient (IN) | payer MEDICAID ==
[2024-11-23] MEDS ORDERED: CALCIUM CARBONATE 500 MG CHEWABLE PO PRN (18:45)
[2024-11-23] MEDS ORDERED: MAG HYDROX/AL HYDROX/SIMETH 355 ML BOTTLE PO PRN (18:48)
[2024-11-23] MEDS ORDERED: ACETAMINOPHEN TAB 325 MG TAB PO PRN (18:48)
[2024-11-23] MEDS ORDERED: MAGNESIUM HYDROXIDE 2,400 MG/30 ML CUP PO PRN (18:48)
[2024-11-23] MEDS ORDERED: IBUPROFEN 600 MG TAB PO PRN (18:48)
[2024-11-23] MEDS ORDERED: HALOPERIDOL LACTATE 5 MG/ML 1 ML VIAL IM PRN (18:48)
[2024-11-23] MEDS: LORazepam 1 MG TAB PO PRN (21:43)
[2024-11-23] MEDS: FAMOTIDINE 20 MG TAB PO SCH (21:43)
[2024-11-24] MEDS: THIAMINE 100 MG TAB PO SCH (09:12)
[2024-11-24] MEDS: FOLIC ACID 1 MG TAB PO SCH (09:12)
[2024-11-24] MEDS: NICOTINE 14MG/24HR PATCH TRANSDERM SCH (09:12)
[2024-11-24] MEDS: MULTIVITAMINS, THERA 1 EACH TAB PO SCH (09:12)
[2024-11-24] MEDS: LORazepam 1 MG TAB PO PRN (09:32)
[2024-11-24] MEDS: SERTRALINE 25 MG TAB PO SCH (09:44)
[2024-11-24] MEDS: busPIRone HCl 5 MG TAB PO SCH (09:44)
--- NOTE | 2024-11-24 10:49 | P.HP ---
Psychiatric H&P - . H&P Date: 11/24/24 History & Physical: Allergies Allergy/AdvReac Type Severity Reaction Status Date / Time lisinopril Allergy Unknown - Verified 11/22/24 07:53 see comment Vital Signs Temp 97.4 F L 11/24/24 06:59 Pulse 85 11/24/24 06:59 Resp BP 106/66 11/24/24 06:59 Pulse Ox 98 11/24/24 06:59 FiO2 Intake & Output 11/23/24 11/24/24 11/24/24 18:59 06:59 18:59 Weight 54.431 kg Dictation was produced using [employer] dictation software. Please excuse any grammatical, word or spelling errors. IDENTIFYING DATA: Patient is a 39 years old male with past psychiatric history depression, anxiety, and alcohol use disorder in remission presented to the ED on 11/22/2023 for suicidal ideation, and anxiety. HPI: Patient presented to the hospital with suicidal ideation without intention or plan, and anxiety. Reports that he does not want to be alive. Reported worsening of symptoms for the last 2 weeks, reported getting panic attacks, and has been getting episodes of syncope when he gets emotional, reported that sometimes he gets 2 episodes of syncope per day. Psychiatry was consulted and patient was seen in the ED, he met criteria for inpatient psychiatric hospitalization. Upon evaluation in the unit today, patient states that depression and anxiety has been building up and increased lately, reported that " I want to end it." He states that he was overwhelmed and the ambulance to get some help. He states that he tried to harm himself by overdose on ibuprofen a week ago, reported that it did not do anything to him. States that his intention was to take a break. 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 States that things are not going his way and he has been struggling. Reported that he found out that his was cheating on him about a year ago, reported that " I lost my shift around that time" however they are back together now and things are getting better. States that for the last few weeks he has been feeling down, sad, depressed, hopeless, helpless, worthless, he denied any current suicidal or homicidal thoughts or behavior however reported that he had suicidal thoughts prior to this admission, reported overdose on ibuprofen a week ago and drinking some chemicals couple of months ago he found in a friend car however he did not know what type of substance. Reported that his sleep is all over the place and recently he has been sleeping most of the day, reported his appetite has been poor and he lost 100 pounds over the last year. He denied any manic or hypomanic symptoms aside from racing thoughts at times. He reported high anxiety and he has been dealing with a lot of financial stressors that overwhelm him also having a family and lack of work has been overwhelming him as well. He denied any current auditory or visual hallucination, paranoia or delusion. Reported that he has been having syncopal episodes for about a year now, reported he has been feeling tired most of the day with poor focus and concentration, denied any history of seizures or cardiac issues. Admitted to having migraine. He denied any history of physical, emotional or sexual trauma in the past. He denied having access to firearms or guns. Denied any current suicidal or homicidal thoughts or behavior. PAST PSYCHIATRIC HISTORY: - Inpatient Hospitalizations: Denies - Outpatient Care: [facility] several months ago. - Current Psychotropics: Was recently started on Cymbalta by [facility], he has not been compliant with medication, reported that he did not benefit much from it - Prior Psychotropics/Therapy: None reported - Prior Psychiatric dx: anxiety, depression - Suicidal Attempts: He reports having had a recent suicide attempt in October 2024, he took over 50 ibuprofen in an effort to end his life. Reported that he did not seek medical or psychiatric attention at that time - Self Harm: pt denied PMH: as per ER note Past Medical History: Hypertension Past Surgical History: No Surgical Hx Reported Smoking Status: Vaper Past Alcohol Use History: None Reported, Occasional Past Drug Use History: Marijuana ALLERGIES: as per EMR CHEMICAL DEPENDENCY HISTORY: as per HPI - Tobacco: vaping stopped 2 weeks ago, former smoking stopped 2 yrs ago, 2 ppd - Alcohol: claims that he stopped drinking alcohol about 12 months ago, whether he was relapsed 2 months ago and drank 1/5 of alcohol, reported that his last drink was few days ago, reported whiskey and coke. He was drinking 1520 beers and 1/5 of alcohol per day for about 10 years, denied any withdrawal symptoms or seizures due to alcohol withdrawal, no previous rehab. Denied any legal issues. - Illicit Drugs: pt denies - Cannabis: pt denies - Caffeine: energy drinks 2 per week FAMILY PSYCHIATRIC/SUBSTANCE USE HISTORY: denied any family hx of mental illness, or suicide, reported that most of his family struggled with alcohol use. SOCIAL HISTORY: Patient was born and raised in [place], moved to [place] in 6th grade, came by himself, did not met his father, came to live with grandmother. for 10 yrs, together for 24 yrs, have 4 children, 2 15 yo twins, 6, and 7 yo. 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 He is , lives with and 4 children. 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 Finished HS. Denied any legal issues. MENTAL STATUS EXAM: General Appearance: Patient appears to be older than stated age is alert, pleasant, and cooperative. Patient appears to have poor hygiene and grooming wearing hospital gown with fair eye contact. Behavior: Patient is calmly seated without any agitated behavior. Speech: Patient's speech is fluent and nonpressured. Mood/Affect: Patient reports their mood is "depressed", affect is flat, congruent and tearful Suicidality/Homicidality: Patient denies having suicidal or homicidal ideation, intent, or plan at this moment. Perceptions: Patient denies any visual hallucinations and denies any auditory hallucinations Though content/process: There is no evidence of any delusional thought content and thought process is linear and goal-directed. Memory and concentration: AOX3, grossly intact for the purposes of this session. Able to recall recent and remote events. Judgment and insight: Impaired STRENGTHS/WEAKNESSES: strength is that patient is resilien. Weakness is that patient has poor judgment and is impulsive INTELLECT: average IMPRESSIONS: Patient is a 39 years old male with past psychiatric history depression, anxiety, and alcohol use disorder in remission presented to the ED on 11/22/2023 for suicidal ideation, and anxiety. He was evaluated by the medical team for syncopal event and is currently on a ekg monitor tech. He has a reported history of recent suicidal attempt in October 2024 during which he did not seek any medical or psychiatric help. He has been struggling with stressors including relationship strain, unemployment which resulted in financial hardship, claims a long history of alcohol use however has been in remission for months. - Major depressive disorder, recurrent, severe with suicidal ideation - Generalized anxiety disorder - Rule out panic disorder - Alcohol use disorder, in partial remission PLAN: -Patient is admitted under voluntary status to MHU for stabilization of psychiatric symptoms and safety. Patient has signed adult voluntary form and medication consent and is placed in patient's chart. -Medications : Start Zoloft 25 mg p.o. daily Start BuSpar 5 mg p.o. twice daily -Haldol PRN for agitation/aggression -Started thiamine, MVM for etoh use -CIWA protocol with Ativan PRN for ETOH withdrawal. -Labs ordered -Patient was counselled on substance abuse and desired to cut back on use. -Will offer patient subtance use rehab -Patient was informed of the risks, benefits and side effects of the medication and patient verbally consented to taking the medications. Patient signed med consent form and was placed in chart. -Internal Medicine consult to perform medical evaluation and physical. -NRT - nicotine patch -SW on board for discharge planning. Encourage patient to participate in groups to work on coping skills. 11/24/24 08:50
[2024-11-24] MEDS: NEOMYCIN-BACITRACIN-POLY OINT 14 GM TUBE TOPICAL SCH (14:28)
[2024-11-24 23:13] LABS: Chol/HDL Ratio 4.21 Ratio; LDL Cholesterol,Calculated 92.2 mg/dL (0.0-131.0)
--- NOTE | 2024-11-25 03:51 | P.MDCNMH ---
History of Present Illness H&P Date: 11/25/24 Chief Complaint: medical eval 39 year old male with hypertension not currently on medication, depression and anxiety patient presented for suicidal ideation. medicine consulted for medical evaluation patient reported recurrent syncopal episodes without injuries at home, usually these episodes follows strong emotional reactions. he denies any associated seizure like activity or injuries. he has history of hypertension but he is not currently on any medications for that. he does not recall the last medications he used for BP . he denies illicit drug or alcohol , admits to vaping. deneis nausea , vomiting, fever, chills, SOB, cough ,abd pain or GI bleeding review of systems Pertinent positives as noted in HPI. All other systems were reviewed and are negative on exam Constitutional: No acute distress, Eyes: Anicteric sclerae, moist conjunctiva, Pupils equal round reactive to light ENMT: NC/AT Oropharynx clear, no erythema, or exudates Lungs: Clear to auscultation Clear to percussion Normal respiratory effort, no accessory muscle use Cardiovascular: Heart regular in rate and rhythm, No murmurs, gallops, or rubs No peripheral edema Abdominal: Soft Nontender, no guarding, rebound or rigidity Abdomen moving with respiration Normoactive bowel sounds Extremities: No digital cyanosis No clubbing Pedal pulses intact and symmetrical Radial pulses intact and symmetrical Psychiatric: Alert and oriented to person, place and time Neuro Muscles Strength 5/5 in all 4 extremities Sensation to light touch grossly present throughout Cranial nerves II-XII grossly intact Past Medical History Past Medical History: Hypertension Additional Past Medical History / Comment(s): Migraines, syncope History of Any Multi-Drug Resistant Organisms: None Reported Past Surgical History: No Surgical Hx Reported Additional Past Surgical History / Comment(s): Hip repair Past Anesthesia/Blood Transfusion Reactions: No Reported Reaction Past Psychological History: Anxiety, Depression Smoking Status: Vaper Past Alcohol Use History: None Reported, Occasional Past Drug Use History: Marijuana Medications and Allergies Home Medications Medication Instructions Recorded Confirmed Type Acetaminophen Tab [Tylenol] 650 mg PO Q6HR PRN tab 11/23/24 11/23/24 Rx Calcium Carbonate [Tums] 1,000 mg PO Q4HR PRN tab 11/23/24 11/23/24 Rx Famotidine [Pepcid] 20 mg PO BID tab 11/23/24 11/23/24 Rx Nicotine 14Mg/24Hr Patch [Habitrol] 1 patch TRANSDERM DAILY patch 11/23/24 11/23/24 Rx Allergies Allergy/AdvReac Type Severity Reaction Status Date / Time lisinopril Allergy Unknown - Verified 11/22/24 07:53 see comment Physical Exam Vitals: Vital Signs Temp Pulse BP Pulse Ox 11/24/24 06:59 97.4 F L 85 106/66 98 Intake and Output 11/24/24 11/24/24 11/25/24 14:59 22:59 06:59 Other: Weight 58.967 kg Cranial Nerve Examination - Cranial Nerves Cranial Nerve II- Optic: Intact Cranial Nerve III- Oculomotor: Intact Cranial Nerve IV- Trochlear: Intact Cranial Nerve V- Trigeminal: Intact Cranial Nerve - Abducens: Intact Cranial Nerve VII- Facial: Intact Cranial Nerve VIII- Auditory: Intact Cranial Nerve IX- Glossopharyngeal: Intact Cranial Nerve X- Vagus: Intact Cranial Nerve XI- Accessory: Intact Cranial Nerve XII- Hypoglossal: Intact Results Labs: Abnormal Lab Results - Last 24 Hours (Table) 11/24/24 Range/Units 10:36 Triglycerides 275.00 H (0.00-149.00) mg/dL VLDL Cholesterol, Calc 55.00 H (5.00-40.00) mg/dL Assessment and Plan Assessment: suicidal ideation , management per psych history of hypertension , currently controlled off medications continue to monitor , if his blood pressure started to become elevated , then will consider starting amlodipine 5 mg po daily , currently his BP controlled without any meds. A1C 5.9 , suggestive of pre diabetes consider low sugar diet episodes of syncope with strong emotional reactions fall precautions check EKG routine if these episodes happen while he is inpatient , then will consider initiating full workup. at this time its not clear if these are true syncopal episodes thank you for this consultation
--- NOTE | 2024-11-25 10:50 | P.PN ---
Progress Note - Text Progress Note Date: 11/25/24 Dictation was produced using [employer] dictation software. Please excuse any grammatical, word or spelling errors. Interval history: Patient was seen in his room and was directable and agreeable to speak with the film writer for psychiatric follow-up. He states that his mood is "tired" today, states that he did not sleep well last night, kept waking up. He states that depression and anxiety are at the moderate side, rated depression at 7 per 10, and anxiety at 5 per 10. He denied any current suicidal, self-harm or homicidal thoughts or behavior, intention or plan. He denied any current auditory or visual hallucination. States that he started taking his medication and denied any current side effects, states that he would like some medication for anxiety as needed. He admitted to good appetite, reported that he gets along with everyone in the unit. Patient was encouraged to participate more in the milieu and attended groups. Mental status exam: General Appearance: Patient appears to be older than stated age is alert, pleasant, and cooperative. Patient appears to have poor hygiene and grooming wearing hospital gown with fair eye contact. Behavior: Patient is calmly seated without any agitated behavior. Speech: Patient's speech is fluent and nonpressured. Mood/Affect: Patient reports their mood is "depressed", affect is flat, congruent and tearful Suicidality/Homicidality: Patient denies having suicidal or homicidal ideation, intent, or plan at this moment. Perceptions: Patient denies any visual hallucinations and denies any auditory hallucinations Though content/process: There is no evidence of any delusional thought content and thought process is linear and goal-directed. Memory and concentration: AOX3, grossly intact for the purposes of this session. Able to recall recent and remote events. Judgment and insight: Impaired IMPRESSIONS: Patient is a 39 years old male with past psychiatric history depression, anxiety, and alcohol use disorder in remission presented to the ED on 11/22/2023 for suicidal ideation, and anxiety. 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 He has a reported history of recent suicidal attempt in October 2024 during which he did not seek any medical or psychiatric help. He has been struggling with stressors including relationship strain, unemployment which resulted in financial hardship, claims a long history of alcohol use however has been in remission for months. Will co ntinue with current diagnosis. Patient continues to meet criteria for inpatient psychiatric admission for symptom stabilization and safety. Monitor for medication compliance and for any psychotropic medication side effects. Will continue to monitor ongoing response to treatment. Will start hydroxyzine 25 mg po q6h prn for anxiety. Encouraged participation in milieu. - Major depressive disorder, recurrent, severe with suicidal ideation - Generalized anxiety disorder - Rule out panic disorder - Alcohol use disorder, in partial remission Plan: PLAN: -Patient is admitted under voluntary status to MHU for stabilization of psychiatric symptoms and safety. Patient has signed adult voluntary form and medication consent and is placed in patient's chart. -Medications : Continue Zoloft 25 mg p.o. daily with a plan to increase to 50 mg tomorrow. Continue BuSpar 5 mg p.o. twice daily - Start hydroxyzine 25 mg po q6h prn for anxiety -Haldol PRN for agitation/aggression - thiamine, MVM for etoh use -CIWA protocol with Ativan PRN for ETOH withdrawal. -Labs ordered, reviewed -Patient was counselled on substance abuse and desired to cut back on use. -Will offer patient subtance use rehab -Patient was informed of the risks, benefits and side effects of the medication and patient verbally consented to taking the medications. Patient signed med consent form and was placed in chart. -Internal Medicine consult to perform medical evaluation and physical. -NRT - nicotine patch -SW on board for discharge planning. Encourage patient to participate in groups to work on coping skills.
[2024-11-25] MEDS: hydrOXYzine pamoate 25 MG CAP PO PRN (20:50)
[2024-11-25] MEDS: traZODone HCL 50 MG TAB PO PRN (21:38)
[2024-11-26] MEDS: haloperidoL 5 MG TAB PO PRN (08:40)
[2024-11-26] MEDS: SERTRALINE 50 MG TAB PO SCH (08:41)
--- NOTE | 2024-11-26 11:52 | P.PN ---
Progress Note - Text Progress Note Date: 11/26/24 Interval history: Patient was seen in his room and was directable and agreeable to speak with the remote mortgage underwriter for psychiatric follow-up. Patient claims that he is still feeling a bit tired, claims that he is still feeling depressed as well. Claims that his anxiety is improving mildly. He claims that he is still having racing thoughts at nighttime finding it difficult to sleep. He was agreeable to try Seroquel at nighttime and also change his Zoloft to nighttime dosing. States that he is august nly keeping himself in his room, continues to have poor hygiene and grooming, disheveled appearance. Fair appetite. He denied any current suicidal, self-harm or homicidal thoughts or behavior, intention or plan. He denied any current auditory or visual hallucination. States that he started taking his medication and denied any current side effects, states that he would like some medication for anxiety as needed. Mental status exam: General Appearance: Patient appears to be older than stated age is alert, pleasant, and cooperative. Patient appears to have poor hygiene and grooming wearing hospital gown with poor eye contact. Behavior: Patient is calmly seated without any agitated behavior. attempts to cooperate Speech: Patient's speech is fluent and nonpressured. monotone Mood/Affect: Patient reports their mood is "still depressed", affect is flat, congruent and constricted Suicidality/Homicidality: Patient denies having suicidal or homicidal ideation, intent, or plan at this moment Perceptions: Patient denies any visual hallucinations and denies any auditory hallucinations Though content/process: There is no evidence of any delusional thought content and thought process is linear and goal-directed. concrete. Memory and concentration: AOX3, grossly intact for the purposes of this session. Judgment and insight: Impaired, improving mildly IMPRESSIONS: - Major depressive disorder, recurrent, severe with suicidal ideation - Generalized anxiety disorder - Rule out panic disorder - Alcohol use disorder, in partial remission Plan: PLAN: -Patient is admitted under voluntary status to MHU for stabilization of psychiatric symptoms and safety. Patient has signed adult voluntary form and medication consent and is placed in patient's chart. -Medications : increase Zoloft 75 mg p.o. HS with a plan to increase to 100 mg QHS tomorrow. Continue BuSpar 5 mg p.o. twice daily added seroquel 25 mg qhs for insomnia/racing thoughts. hydroxyzine 25 mg po q6h prn for anxiety Haldol PRN for agitation/aggression thiamine, MVM for etoh use -CIWA protocol with Ativan PRN for ETOH withdrawal. -NRT - nicotine patch -SW on board for discharge planning. Encourage patient to participate in groups to work on coping skills. patient is refusing rehab at this time
[2024-11-26] MEDS: SERTRALINE 50 MG TAB PO ONE (20:33)
[2024-11-26] MEDS: QUEtiapine 25 MG TAB PO SCH (20:33)
[2024-11-27 07:15] VITALS: RESP 16
--- NOTE | 2024-11-27 11:30 | P.PN ---
Progress Note - Text Progress Note Date: 11/27/24 Interval history: Patient was seen in his room and was directable and agreeable to speak with the casualty underwriter for psychiatric follow-up. Patient continues to appear to be fairly tired. He was laying in bed. He continues to endorse depression. Continues to have disheveled appearance. He was fairly concrete during conversation. States that he does not feel well today, states that he feels a bit of congestion like he might be getting sick. He was agreeable to be tested and also lab work. Cl aims that he is feeling bit tired today however did sleep really well last night, improving racing thoughts. Improving anxiety. He continues to have poor hygiene and grooming, disheveled appearance. Fair appetite. He denied any current suicidal, self-harm or homicidal thoughts or behavior, intention or plan. He denied any current auditory or visual hallucination. States that he started taking his medication and denied any current side effects. According to nursing report states that patient was caught with a cell phone that was meant to be for his Holter monitor and it apparently was downloading apps and texting. The cell phone was taken from him, nursing is reaching out to cardiology for further instructions on what to do. Mental status exam: General Appearance: Patient appears to be older than stated age is alert, pleasant, and cooperative. Patient appears to have poor hygiene and grooming wearing hospital gown with poor eye contact. Behavior: Patient is calmly seated without any agitated behavior. attempts to cooperate Speech: Patient's speech is fluent and nonpressured. monotone Mood/Affect: Patient reports their mood is "depressed", affect is flat, congruent and constricted, improving mildly Suicidality/Homicidality: Patient denies having suicidal or homicidal ideation, intent, or plan at this moment Perceptions: Patient denies any visual hallucinations and denies any auditory hallucinations Though content/process: There is no evidence of any delusional thought content and thought process is linear and goal-directed. concrete. Memory and concentration: AOX3, grossly intact for the purposes of this session. Judgment and insight: Impaired, improving mildly IMPRESSIONS: - Major depressive disorder, recurrent, severe with suicidal ideation - Generalized anxiety disorder - Rule out panic disorder - Alcohol use disorder, in partial remission Plan: PLAN: -Patient is admitted under voluntary status to [facility] for stabilization of psychiatric symptoms and safety. Patient has signed adult voluntary form and medication consent and is placed in patient's chart. -Medications : increase Zoloft 100 mg p.o. HS d/c BuSpar continue seroquel 25 mg qhs for insomnia/racing thoughts. hydroxyzine 25 mg po q6h prn for anxiety Haldol PRN for agitation/aggression thiamine, MVM for etoh use -d/c [facility] protocol -NRT - nicotine patch - on board for discharge planning. Encourage patient to participate in groups to work on coping skills. patient is refusing rehab at this time. likely discharge -tuesday if pt is improving psychiatrically.
--- NOTE | 2024-11-27 13:10 | P.PN ---
Progress Note - Text Progress Note Date: 11/27/24 Received consultation to address patient's event monitor. Patient was recently hospitalized 11/22 - 11/23 at which time he was seen by cardiology for history of syncope. Event monitor was ordered for 30 days and was obtained from Brandi [facility]. Patient was then transferred to the mental health unit. Patient is apparently able to utilize the ergonomics consultant phone to text friends or family. His personal phone has been taken from him while on the mental health unit. We recommend that ergonomics consultant be removed while patient is on the mental health unit. At the time patient is being discharged from the mental health unit, contact [employer] to reapply ergonomics consultant. Patient would then have a follow-up appointment with Dr. Salter in 5 weeks.
[2024-11-27] MEDS: SERTRALINE 100 MG TAB PO SCH (20:25)
[2024-11-28 07:25] VITALS: TEMP 98
[2024-11-28 08:56] LABS: Basophils # (A) 0.1 k/uL (0-0.2); Basophils % (A) 1 %; Eosinophils # (A) 0.1 k/uL (0-0.7); Eosinophils % (A) 1 %; HCT 43.3 % (39.0-53.0); HGB 14.1 gm/dL (13.0-17.5); Lymphocytes # (A) 1.3 k/uL (1.0-4.8); Lymphocytes % (A) 13 %; MCH 28.6 pg (25.0-35.0); MCHC 32.5 g/dL (31.0-37.0); MCV 87.8 fL (80.0-100.0); Mean Platelet Volume 6.7; Monocytes % (A) 10 %; Neutrophils # (A) 7.6 k/uL (1.3-7.7); Neutrophils % (A) 74 %; Platelet Count 330 k/uL (150-450); RBC 4.93 m/uL (4.30-5.90); RDW 12.1 % (11.5-15.5); WBC 10.2 k/uL (3.8-10.6)
[2024-11-28 09:13] LABS: ALT 29 U/L (4-49); AST 29 U/L (17-59); African American GFR (CKD) >90 (>60 ml/min/1.73 sqM); Albumin 4.3 g/dL (3.5-5.0); Alkaline Phosphatase 93 U/L (38-126); Anion Gap 10 mmol/L; Blood Urea Nitrogen 16 mg/dL (9-20); Calcium 9.7 mg/dL (8.4-10.2); Carbon Dioxide 25 mmol/L (22-30); Chloride 101 mmol/L (98-107); Glucose 92 mg/dL (74-99); Non-African American GFR(CKD) >90 (>60 ml/min/1.73 sqM); Potassium 4.7 mmol/L (3.5-5.1); Sodium 136 mmol/L (137-145); Total Bilirubin 0.2 mg/dL (0.2-1.3); Total Protein 7.1 g/dL (6.3-8.2)
--- NOTE | 2024-11-28 11:43 | P.PN ---
Progress Note - Text Progress Note Date: 11/28/24 Interval history: Patient was seen today playing cards and activity group and was directable and agreeable to speak with the assembly instructions writer for psychiatric follow-up. Patient states that he is doing much better today, claims that he feels he was able to sleep a bit better with the Seroquel and Zoloft at nighttime. Not reporting any side effects or problems with the medications, claims that he is not feeling tired today. Claims that his mood and anxiety have been improving. He was focused on discharge today. Claims that he is eating well, trying to go to more groups. Appears to be a bit more future oriented today. Denies any suicidal homicidal ideations intent or plan, denies any auditory or visual hallucinations. Mental status exam: General Appearance: Patient appears to be older than stated age is alert, pleasant, and cooperative. Patient appears to have improving hygiene and groo tamiko wearing hospital gown with improving eye contact. Behavior: Patient is calmly seated without any agitated behavior. attempts to cooperate Speech: Patient's speech is fluent and nonpressured. monotone Mood/Affect: Patient reports their mood is "better", affect is congruent and constricted, improving mildly Suicidality/Homicidality: Patient denies having suicidal or homicidal ideation, intent, or plan at this moment Perceptions: Patient denies any visual hallucinations and denies any auditory hallucinations Though content/process: There is no evidence of any delusional thought content and thought process is linear and goal-directed. concrete. Focused on discharge today Memory and concentration: AOX3, grossly intact for the purposes of this session. Judgment and insight: improving mildly IMPRESSIONS: - Major depressive disorder, recurrent, severe with suicidal ideation - Generalized anxiety disorder - Rule out panic disorder - Alcohol use disorder, in partial remission Plan: PLAN: -Patient is admitted under voluntary status to [facility] for stabilization of psychiatric symptoms and safety. Patient has signed adult voluntary form and medication consent and is placed in patient's chart. -Medications : Zoloft 100 mg p.o. HS for mood/anxiety seroquel 25 mg qhs for insomnia/racing thoughts. hydroxyzine 25 mg po q6h prn for anxiety Haldol PRN for agitation/aggression thiamine, MVM for etoh use -NRT - nicotine patch -SW on board for discharge planning. Encourage patient to participate in groups to work on coping skills. patient is refusing rehab at this time. likely discharge tomorrow if pt is improving psychiatrically, he will be going back home.
[2024-11-29 08:25] VITALS: BP 119/86; PULSE 91
--- NOTE | 2024-11-29 09:12 | P.DS ---
Providers Date of admission: 11/23/24 18:09 Expected date of discharge: 11/29/24 Attending physician: Emmanuel Jim MD Consults: 11/23/24 18:48 Consult Physician Routine Consulting Provider: Simone Sanchez Consult Reason/Comments: H&P and medical Do you want consulting provider notified?: Already Contacted 11/27/24 11:54 Consult Physician Routine Consulting Provider: [facility] Consult Reason/Comments: resetting up pt mobile cardiac rn unit. Do you want consulting provider notified?: Already Contacted Primary care physician: Sri Anderson - Discharge Diagnosis(es) (1) Major depressive disorder, recurrent episode, severe Current Visit: Yes Status: Acute Priority: High (2) Generalized anxiety disorder Current Visit: Yes Status: Acute Priority: Medium (3) Alcohol use disorder Current Visit: Yes Status: Acute Priority: High (4) Nicotine dependence Current Visit: Yes Status: Acute Priority: Low Hospital Course: Admission HPI: Admission note was completed by Dr Perez "patient is a 39 years old male with past psychiatric history depression, anxiety, and alcohol use disorder in remission presented to the ED on 11/22/2023 for suicidal ideation, and anxiety. Patient presented to the hospital with suicidal ideation without intention or plan, and anxiety. Reports that he does not want to be alive. Reported worsening of symptoms for the last 2 weeks, reported getting panic attacks, and has been getting episodes of syncope when he gets emotional, reported that sometimes he gets 2 episodes of syncope per day. Psychiatry was consulted and patient was seen in the ED, he met criteria for inpatient psychiatric hospitalization. Upon evaluation in the unit today, patient states that depression and anxiety has been building up and increased lately, reported that " I want to end it." He states that he was overwhelmed and the ambulance to get some help. He states that he tried to harm himself by overdose on ibuprofen a week ago, reported that it did not do anything to him. States that his intention was to take a break. 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 States that things are not going his way and he has been struggling. Reported that he found out that his was cheating on him about a year ago, reported that " I lost my shift around that time" however they are back together now and things are getting better. States that for the last few weeks he has been feeling down, sad, depressed, hopeless, helpless, worthless, he denied any current suicidal or homicidal thoughts or behavior however reported that he had suicidal thoughts prior to this admission, reported overdose on ibuprofen a week ago and drinking some chemicals couple of months ago he found in a friend car however he did not know what type of substance. Reported that his sleep is all over the place and recently he has been sleeping most of the day, reported his appetite has been poor and he lost 100 pounds over the last year. He denied any manic or hypomanic symptoms aside from racing thoughts at times. He reported high anxiety and he has been dealing with a lot of financial stressors that overwhelm him also having a family and lack of work has been overwhelming him as well. He denied any current auditory or visual hallucination, paranoia or delusion. Reported that he has been having syncopal episodes for about a year now, reported he has been feeling tired most of the day with poor focus and concentration, denied any history of seizures or cardiac issues. Admitted to having migraine. He denied any history of physical, emotional or sexual trauma in the past. He denied having access to firearms or guns. Denied any current suicidal or homicidal thoughts or behavior." Hospital course: Upon admission to the unit patient was directable and agreeable to commence treatment and signed adult voluntary form. Patient got along well with other patients on the unit and followed unit protocol. Patient was compliant with the medications and denied any side effects throughout hospital course. Patient was started on Zoloft increased to dose of 100 mg nightly for mood/anxiety, Seroquel 25 mg nightly for insomnia/racing thoughts/anxiety, Vistaril as needed for anxiety. Patient spoke of his stressors and engaged in therapy both group and individual. Patient was also seen by medical team for history and physical exam. Throughout the course of the hospitalization patient gradually improved with regards to mood, anxiety, suicidal thoughts, sleep and returned back to their baseline level of functioning. On the day of discharge patient denied any suicidal or homicidal ideations intent or plan denied any auditory or visual hallucinations. Patient endorsed wanting to live for their health and family. The patient denied any access to guns or weapons. Patient denied any paranoia and did not endorse any delusions. Patient does have a significant history of substance abuse and was counseled on abstaining from all substances including alcohol and marijuana. Patient was offered however declined inpatient substance-abuse rehab. Patient was also counseled on the medications and need for regular compliance and was encouraged to follow-up with their outpatient appointment for mental health and also for primary care. Prior to discharge a family meeting will be arranged by social insurance specialist to answer any questions and ensure safety upon discharge incuding making sure that guns/weapons are either removed from the home or locked away. Mental status exam: General Appearance: Patient appears to be short in stature, wearing glasses, bald stated age is alert, pleasant, and cooperative. Patient is in no acute distress and has improved hygiene and grooming Behavior: Patient is calmly seated without any agitated behavior. Speech: Patient's speech is fluent and nonpressured. Mood/Affect: Patient reports their mood is "good", affect is congruent Suicidality/Homicidality: Patient denies having any suicidal or homicidal ideation intent or plan. Perceptions: Patient denies any auditory or visual hallucinations. Though content/process: There is no evidence of any delusional thought content and thought process is linear and goal-directed. More future oriented Memory and concentration: AOX3, grossly intact for the purposes of this session. Can spell "WORLD" backwards correctly. Judgment and insight: improved with guarded prognosis Impression: Major depressive disorder recurrent severe episode Generalized anxiety disorder Alcohol use disorder Nicotine dependence Plan: -Continue with discharge today as patient has improved and stabilized psychiatrically and is not currently an imminent threat to themself and/or others. Patient will remain at chronically elevated risk for harm to self and/or others due to their impulsivity and substance abuse. -Continue medications: Zoloft 100 mg nightly for mood/anxiety, Seroquel 25 mg nightly for insomnia/racing thoughts/anxiety, Vistaril twice daily as needed for anxiety. patient refused any anti cravings medications for etoh. -Patient was counseled on the need for medication compliance and appropriate follow-up at mental health and also primary care for medical issues. Patient verbalized understanding and agreed. -Social work to arrange for and conduct family meeting to ensure safety upon discharge and answer any questions/concerns. also to ensure safe home environment that guns/weapons are either removed from the home or locked away. Social work also to arrange for patients follow up appointments for psychiatric care along with follow up with primary care provider. -Patient counseled on abstaining from recreational drugs and marijuana and alcohol. Was informed/educated on the adverse effects on their physical and mental health. Patient verbally agreed and understood. Patient was offered substance abuse treatment however declined at this time. -Patient was instructed to return to the hospital or seek immediate medical care if their psychiatric or medical symptoms do worsen or reoccur. Allergies Allergy/AdvReac Type Severity Reaction Status Date / Time lisinopril Allergy Unknown - Verified 11/22/24 07:53 see comment Laboratory Results WBC 10.2 k/uL (3.8-10.6) 11/28/24 08:15 RBC 4.93 m/uL (4.30-5.90) 11/28/24 08:15 Hgb 14.1 gm/dL (13.0-17.5) 11/28/24 08:15 Hct 43.3 % (39.0-53.0) 11/28/24 08:15 MCV 87.8 fL (80.0-100.0) 11/28/24 08:15 MCH 28.6 pg (25.0-35.0) 11/28/24 08:15 MCHC 32.5 g/dL (31.0-37.0) 11/28/24 08:15 RDW 12.1 % (11.5-15.5) 11/28/24 08:15 Plt Count 330 k/uL (150-450) 11/28/24 08:15 MPV 6.7 11/28/24 08:15 Neutrophils % 74 % 11/28/24 08:15 Lymphocytes % 13 % 11/28/24 08:15 Monocytes % 10 % 11/28/24 08:15 Eosinophils % 1 % 11/28/24 08:15 Basophils % 1 % 11/28/24 08:15 Neutrophils # 7.6 k/uL (1.3-7.7) 11/28/24 08:15 Lymphocytes # 1.3 k/uL (1.0-4.8) 11/28/24 08:15 Monocytes # 1.0 k/uL (0-1.0) 11/28/24 08:15 Eosinophils # 0.1 k/uL (0-0.7) 11/28/24 08:15 Basophils # 0.1 k/uL (0-0.2) 11/28/24 08:15 Sodium 136 mmol/L (137-145) L 11/28/24 08:15 Potassium 4.7 mmol/L (3.5-5.1) 11/28/24 08:15 Chloride 101 mmol/L (98-107) 11/28/24 08:15 Carbon Dioxide 25 mmol/L (22-30) 11/28/24 08:15 Anion Gap 10 mmol/L 11/28/24 08:15 BUN 16 mg/dL (9-20) 11/28/24 08:15 Creatinine 0.92 mg/dL (0.66-1.25) 11/28/24 08:15 Est GFR (CKD-EPI)AfAm >90 (>60 ml/min/1.73 sqM) 11/28/24 08:15 Est GFR (CKD-EPI)NonAf >90 (>60 ml/min/1.73 sqM) 11/28/24 08:15 Glucose 92 mg/dL (74-99) 11/28/24 08:[address] Glu mg/dL 123 mg/dL 11/24/24 10:36 Hemoglobin A1c 5.9 % (<=6.0) 11/24/24 10:36 Calcium 9.7 mg/dL (8.4-10.2) 11/28/24 08:15 Total Bilirubin 0.2 mg/dL (0.2-1.3) 11/28/24 08:15 AST 29 U/L (17-59) 11/28/24 08:15 ALT 29 U/L (4-49) 11/28/24 08:15 Alkaline Phosphatase 93 U/L (38-126) 11/28/24 08:15 Total Protein 7.1 g/dL (6.3-8.2) 11/28/24 08:15 Albumin 4.3 g/dL (3.5-5.0) 11/28/24 08:15 Triglycerides 275.00 mg/dL (0.00-149.00) H 11/24/24 10:36 Cholesterol 193.00 mg/dL (0.00-200.00) 11/24/24 10:36 LDL Cholesterol, Calc 92.2 mg/dL (0.0-131.0) 11/24/24 10:36 VLDL Cholesterol, Calc 55.00 mg/dL (5.00-40.00) H 11/24/24 10:36 HDL Cholesterol 45.80 mg/dL (40.00-60.00) 11/24/24 10:36 Cholesterol/HDL Ratio 4.21 Ratio 11/24/24 10:36 TSH 1.220 mIU/L (0.465-4.680) 11/24/24 10:36 Vital Signs Temp 98 F 11/28/24 06:43 Pulse 91 11/29/24 08:25 Resp 16 11/28/24 06:43 BP 119/86 11/29/24 08:25 Pulse Ox 97 11/28/24 06:43 FiO2 Patient Condition at Discharge: Stable Plan - Discharge Summary Discharge Rx Participant: No New Discharge Prescriptions: New Multivitamins, Thera [Multivitamin (formulary)] 1 each PO DAILY 30 Days #30 tab QUEtiapine [SEROquel] 25 mg PO HS 30 Days #30 tab Sertraline [Zoloft] 100 mg PO HS 30 Days #30 tab traZODone HCL [Desyrel] 50 mg PO HS PRN 15 Days #15 tab PRN Reason: Insomnia Folic Acid 1 mg PO DAILY 30 Days #30 tab Nicotine 14Mg/24Hr Patch [Habitrol] 1 patch TRANSDERM DAILY 14 Days #14 patch Onnpmmvf-Jbzlsqiqcj-Xrvm Oint [Triple Antibiotic Ointment] 1 applic TOPICAL BID 30 Days #1 each hydrOXYzine pamoate [Vistaril] 50 mg PO BID PRN 30 Days #120 cap PRN Reason: Agitation Or Acute Anxiety Thiamine [Vitamin B-1] 100 mg PO DAILY 30 Days #30 tab Continue Calcium Carbonate [Tums] 1,000 mg PO Q4HR PRN tab PRN Reason: Dyspepsia Famotidine [Pepcid] 20 mg PO BID 30 Days #60 tab Discontinued Nicotine 14Mg/24Hr Patch [Habitrol] 1 patch TRANSDERM DAILY patch Acetaminophen Tab [Tylenol] 650 mg PO Q6HR PRN tab PRN Reason: Mild Pain Or Fever > 100.5 Discharge Medication List Calcium Carbonate [Tums] 1,000 mg PO Q4HR PRN tab 11/23/24 [Rx] Famotidine [Pepcid] 20 mg PO BID 30 Days #60 tab 11/29/24 [Rx] Folic Acid 1 mg PO DAILY 30 Days #30 tab 11/29/24 [Rx] Multivitamins, Thera [Multivitamin (formulary)] 1 each PO DAILY 30 Days #30 tab 11/29/24 [Rx] Dmxduexn-Fesdjsbdnk-Lqia Oint [Triple Antibiotic Ointment] 1 applic TOPICAL BID 30 Days #1 each 11/29/24 [Rx] Nicotine 14Mg/24Hr Patch [Habitrol] 1 patch TRANSDERM DAILY 14 Days #14 patch 11/29/24 [Rx] QUEtiapine [SEROquel] 25 mg PO HS 30 Days #30 tab 11/29/24 [Rx] Sertraline [Zoloft] 100 mg PO HS 30 Days #30 tab 11/29/24 [Rx] Thiamine [Vitamin B-1] 100 mg PO DAILY 30 Days #30 tab 11/29/24 [Rx] hydrOXYzine pamoate [Vistaril] 50 mg PO BID PRN 30 Days #120 cap 11/29/24 [Rx] traZODone HCL [Desyrel] 50 mg PO HS PRN 15 Days #15 tab 11/29/24 [Rx] Follow up Appointment(s)/Referral(s): [facility] [Outside] - 12/07/24 10:30 am (Elissa Gregg ) Manfred Salter MD [STAFF PHYSICIAN] - 6 Weeks (Follow up after 5 weeks) Activity/Diet/Wound Care/Special Instructions: [facility] Discharge Info Avoid the use of street drugs and alcohol. Take all medications as prescribed. When you are in need of refills on your medications, please contact your outpatient medical provider and/or outpatient psychiatrist. Please go to your scheduled outpatient appointments for aftercare treatment. If symptoms return or become worse, call the crisis line at or and/or visit the nearest emergency room for assistance. National Suicide and Crisis Lifeline - call or text 988 Discharge Disposition: HOME SELF-CARE
== END 2024-11-29 13:40 | disposition home or self-care (01) | DRG 756 ==
LOC: 3MHU 18:09
PROVIDERS: ADMIT Psychiatry & Neurology Psychiatry; ATTEND Psychiatry & Neurology Psychiatry
DX: F41.1 Generalized anxiety disorder (principal); F33.2 Major depressive disorder, recurrent severe without psychotic features; F10.11 Alcohol abuse, in remission; I10 Essential (primary) hypertension; R45.851 Suicidal ideations; G43.909 Migraine, unspecified, not intractable, without status migrainosus; G47.00 Insomnia, unspecified; R55 Syncope and collapse; T43.216A Underdosing of selective serotonin and norepinephrine reuptake inhibitors, initial encounter; Z56.0 Unemployment, unspecified; Z59.86 Financial insecurity; Z91.128 Patient's intentional underdosing of medication regimen for other reason; Z91.51 Personal history of suicidal behavior
CPT/HCPCS: 80053; 80061; 83036; 84443; 85025; 93005

== ENCOUNTER 2025-01-15 14:26 | Emergency (ER) | payer OTHER ==
--- NOTE | 2025-01-15 14:33 | ED ---
Overdose HPI - General Stated Complaint: overdose Time Seen by Provider: 01/15/25 14:28 Source: RN notes reviewed, old records reviewed Mode of arrival: EMS Limitations: altered mental status, physical limitation - History of Present Illness Initial Comments: This is a 39-year-old male presenting completely obtunded unable to give history History from EMS states patient has long psychiatric history with psychiatric medications. Drug abuse and allegedly took GHB date rape drug as overdose today he was found by like this and she called EMS MD Complaint: intentional overdose -: hour(s) Intent: unwilling to say Context: Accidental Overdose: wanted to get high Associated Symptoms: depression Treatments Prior to Arrival: none - Related Data Home Medications Medication Instructions Recorded Confirmed No Known Home Medications 01/15/25 01/15/25 Allergies Allergy/AdvReac Type Severity Reaction Status Date / Time lisinopril Allergy Unknown - Verified 01/15/25 16:43 see comment Review of Systems ROS Statement: Those systems with pertinent positive or pertinent negative responses have been documented in the HPI. ROS Other: All systems not noted in ROS Statement are negative. Past Medical History Past Medical History: Hypertension Additional Past Medical History / Comment(s): Migraines, syncope History of Any Multi-Drug Resistant Organisms: None Reported Past Surgical History: No Surgical Hx Reported Additional Past Surgical History / Comment(s): Hip repair Past Anesthesia/Blood Transfusion Reactions: No Reported Reaction Smoking Status: Vaper Past Alcohol Use History: None Reported, Occasional Past Drug Use History: Marijuana General Exam Limitations: altered mental status, physical limitation General appearance: lethargic, obtunded Head exam: Present: atraumatic, normocephalic, normal inspection Eye exam: Present: normal appearance, PERRL, EOMI. Absent: scleral icterus, conjunctival injection, periorbital swelling ENT exam: Present: normal exam, mucous membranes moist Neck exam: Present: normal inspection. Absent: tenderness, meningismus, lymp hadenopathy Respiratory exam: Present: normal lung sounds bilaterally. Absent: respiratory distress, wheezes, rales, rhonchi, stridor Cardiovascular Exam: Present: regular rate, normal rhythm, normal heart sounds. Absent: systolic murmur, diastolic murmur, rubs, gallop, clicks GI/Abdominal exam: Present: soft, normal bowel sounds. Absent: distended, tenderness, guarding, rebound, rigid Extremities exam: Present: normal inspection, full ROM, normal capillary refill. Absent: tenderness, pedal edema, joint swelling, calf tenderness Back exam: Present: normal inspection Neurological exam: Present: alert, oriented X3, CN II-XII intact Psychiatric exam: Present: normal affect, normal mood Skin exam: Present: warm, dry, intact, normal color. Absent: rash Course Vital Signs 01/15/25 01/15/25 01/15/25 14:33 14:42 14:46 Temperature 98 F Pulse Rate 58 L 64 Respiratory 16 16 16 Rate Blood Pressure 153/109 163/112 O2 Sat by Pulse 100 98 Oximetry 01/15/25 01/15/25 01/15/25 15:03 15:43 16:38 Temperature Pulse Rate 64 66 70 Respiratory 16 14 16 Rate Blood Pressure 151/103 146/99 143/105 O2 Sat by Pulse 100 100 100 Oximetry 01/15/25 01/15/25 18:26 19:25 Temperature 98.1 F Pulse Rate 70 105 H Respiratory 18 18 Rate Blood Pressure 151/115 146/109 O2 Sat by Pulse 100 100 Oximetry - Reevaluation(s) Reevaluation #1: 01/15/25 14:56 Medical records reviewed Reevaluation #2: 01/15/25 18:16 Patient remains somnolent here in the ER Patient currently awake alert able to answer questions Reevaluation #3: 01/15/25 18:16 Spoke with family they feel comfortable taking this patient home Reevaluation #4: Was pt. sent in by a medical professional or institution (, PA, CIRCULATION CREW LEADER, urgent care, hospital, or senior living...) When possible be specific @ -no Did you speak to anyone other than the patient for history (EMS, parent, family, police, friend...)? What history was obtained from this source @ -no Did you review nursing and triage notes (agree or disagree)? Why? @ -agree Are old charts reviewed (outside hosp., previous admission, EMS record, old EKG, old radiological studies, urgent care reports/EKG's, senior living records)? Report findings @ -yes Differential Diagnosis (chest pain, altered mental status, abdominal pain women, abdominal pain men, vaginal bleeding, weakness, fever, dyspnea, syncope, headache, dizziness, GI bleed, back pain, seizure, CVA, palpatations, mental health, musculoskeletal)? @ -prior EKG interpreted by me (3pts min.). @ -yes X-rays interpreted by me (1pt min.). @ -no CT interpreted by me (1pt min.). @ -no U/S interpreted by me (1pt. min.). @ -no What testing was considered but not performed or refused? (CT, X-rays, U/S, labs)? Why? @ -none What meds were considered but not given or refused? Why? @ -none Did you discuss the management of the patient with other professionals (professionals i.e. , PA, CIRCULATION CREW LEADER, lab, RT, psych nurse, social services specialist, gas regulator repairer helper, teacher, field crop technical officer, correctional casework specialist)? Give summary @ -no Was smoking cessation discussed for >3mins.? @ -no Was critical care preformed (if so, how long)? @ -no Were there social determinants of health that impacted care today? How? (Homelessness, low income, unemployed, alcoholism, drug addiction, transportation, low edu. Level, literacy, decrease access to med. care, [facility], rehab)? @ -none Was there de-escalation of care discussed even if they declined (Discuss DNR or withdrawal of care, Hospice)? DNR status @ -no What co-morbidities impacted this encounter? (DM, HTN, Smoking, COPD, CAD, Cancer, CVA, ARF, Chemo, Hep., AIDS, mental health diagnosis, sleep apnea, morbid obesity)? @ -none Was patient admitted / discharged? Hospital course, mention meds given and route, prescriptions, significant lab abnormalities, going to OR and other pertinent info. @ - 39 male to the ER for recreational drug use, GHB, patient does occasionally uses drugs to get high, patient came in unresponsive after failing or found him, he is observed in the ER for a few hours and currently awake alert breathing on his own able to ambulate eat and drink is at bedside she does feel comfortable taking him home when he does have no complaints himself again denies homicidal or suicidal thoughts Discharge Undiagnosed new problem with uncertain prognosis? @ -no Drug Therapy requiring intensive monitoring for toxicity (Heparin, Nitro, Insulin, Cardizem)? @ -no Were any procedures done? @ -no Diagnosis/symptom? @ -Accidental overdose Acute, or Chronic, or Acute on Chronic? @ -Acute Uncomplicated (without systemic symptoms) or Complicated (systemic symptoms)? @ -Complicated Side effects of treatment? @ -no Exacerbation, Progression, or Severe Exacerbation? @ -exacerbation Poses a threat to life or bodily function? How? (Chest pain, [place], [place], pneumonia, PE, COPD, DKA, ARF, appy, cholecystitis, CVA, Diverticulitis, Homicidal, Suicidal, threat to staff... and all critical care pts) @ -yes significant overdose Reevaluation #5: Differential Altered Mental Status: Hypoglycemia, DKA, hypercapnia, ETOH, overdose, CO poisoning, trauma, myxedema coma, HTN encephalopathy, infection, encephalitis, psychosis, intercranial hemorrhage, hepatic encephalopathy, meningitis, CVA, this is not meant to be an all-inclusive list - Consultations Consultation #1: Spoke with Poison control, no recommendations Medical Decision Making - Medical Decision Making 39 male to the ER for recreational drug use, GHB, patient does occasionally uses drugs to get high, patient came in unresponsive after failing or found him, he is observed in the ER for a few hours and currently awake alert breathing on his own able to ambulate eat and drink is at bedside she does feel comfortable taking him home when he does have no complaints himself again denies homicidal or suicidal thoughts - Lab Data Result diagrams: 01/15/25 16:08 01/15/25 14:45 Lab Results 01/15/25 01/15/25 01/15/25 Range/Units 14:45 14:45 14:45 WBC (3.8-10.6) k/uL RBC (4.30-5.90) m/uL Hgb (13.0-17.5) gm/dL Hct (39.0-53.0) % MCV (80.0-100.0) fL MCH (25.0-35.0) pg MCHC (31.0-37.0) g/dL RDW (11.5-15.5) % Plt Count (150-450) k/uL MPV Neutrophils % % Lymphocytes % % Monocytes % % Eosinophils % % Basophils % % Neutrophils # (1.3-7.7) k/uL Lymphocytes # (1.0-4.8) k/uL Monocytes # (0-1.0) k/uL Eosinophils # (0-0.7) k/uL Basophils # (0-0.2) k/uL Sodium 138 (137-145) mmol/L Potassium 3.8 (3.5-5.1) mmol/L Chloride 104 (98-107) mmol/L Carbon Dioxide 24 (22-30) mmol/L Anion Gap 10 mmol/L BUN 13 (9-20) mg/dL Creatinine 0.91 (0.66-1.25) mg/dL Est GFR (CKD-EPI)AfAm >90 (>60 ml/min/1.73 sqM) Est GFR (CKD-EPI)NonAf >90 (>60 ml/min/1.73 sqM) Glucose 99 (74-99) mg/dL Calcium 9.0 (8.4-10.2) mg/dL Total Bilirubin 0.4 (0.2-1.3) mg/dL AST 24 (17-59) U/L ALT 16 (4-49) U/L Alkaline Phosphatase 77 (38-126) U/L Troponin I <0.012 (0.000-0.034) ng/mL Total Protein 6.7 (6.3-8.2) g/dL Albumin 3.8 (3.5-5.0) g/dL Lipase 123 (23-300) U/L Urine Color Yellow Urine Appearance Clear (Clear) Urine pH 6.0 (5.0-8.0) Ur Specific [place] 1.033 (1.001-1.035) Urine Protein Trace H (Negative) Urine Glucose (UA) Negative (Negative) Urine Ketones Negative (Negative) Urine Blood Negative (Negative) Urine Nitrite Negative (Negative) Urine Bilirubin Negative (Negative) Urine Urobilinogen <2.0 (<2.0) mg/dL Ur Leukocyte Esterase Negative (Negative) Salicylates <1.0 mg/dL Urine Opiates Screen Not Detected (NotDetected) Ur Oxycodone Screen Not Detected (NotDetected) Urine Methadone Screen Not Detected (NotDetected) Acetaminophen <10.0 ug/mL Ur Barbiturates Screen Not Detected (NotDetected) Valproic Acid <10.0 ug/mL Carbamazepine <2.0 L (4.0-12.0) UG/ML U Tricyclic Antidepress Not Detected (NotDetected) Ur Phencyclidine Scrn Not Detected (NotDetected) Ur Amphetamines Screen Detected H (NotDetected) U Methamphetamines Scrn Detected H (NotDetected) U Benzodiazepines Scrn Not Detected (NotDetected) Urine Cocaine Screen Not Detected (NotDetected) U Marijuana (THC) Screen Not Detected (NotDetected) Serum Alcohol <10 mg/dL 01/15/25 Range/Units 16:08 WBC 16.7 H (3.8-10.6) k/uL RBC 5.05 (4.30-5.90) m/uL Hgb 14.0 (13.0-17.5) gm/dL Hct 45.4 (39.0-53.0) % MCV 89.8 (80.0-100.0) fL MCH 27.7 (25.0-35.0) pg MCHC 30.9 L (31.0-37.0) g/dL RDW 12.8 (11.5-15.5) % Plt Count 261 (150-450) k/uL MPV 6.8 Neutrophils % 85 % Lymphocytes % 8 % Monocytes % 4 % Eosinophils % 2 % Basophils % 0 % Neutrophils # 14.2 H (1.3-7.7) k/uL Lymphocytes # 1.3 (1.0-4.8) k/uL Monocytes # 0.6 (0-1.0) k/uL Eosinophils # 0.4 (0-0.7) k/uL Basophils # 0.1 (0-0.2) k/uL Sodium (137-145) mmol/L Potassium (3.5-5.1) mmol/L Chloride (98-107) mmol/L Carbon Dioxide (22-30) mmol/L Anion Gap mmol/L BUN (9-20) mg/dL Creatinine (0.66-1.25) mg/dL Est GFR (CKD-EPI)AfAm (>60 ml/min/1.73 sqM) Est GFR (CKD-EPI)NonAf (>60 ml/min/1.73 sqM) Glucose (74-99) mg/dL Calcium (8.4-10.2) mg/dL Total Bilirubin (0.2-1.3) mg/dL AST (17-59) U/L ALT (4-49) U/L Alkaline Phosphatase (38-126) U/L Troponin I (0.000-0.034) ng/mL Total Protein (6.3-8.2) g/dL Albumin (3.5-5.0) g/dL Lipase (23-300) U/L Urine Color Urine Appearance (Clear) Urine pH (5.0-8.0) Ur Specific [place] (1.001-1.035) Urine Protein (Negative) Urine Glucose (UA) (Negative) Urine Ketones (Negative) Urine Blood (Negative) Urine Nitrite (Negative) Urine Bilirubin (Negative) Urine Urobilinogen (<2.0) mg/dL Ur Leukocyte Esterase (Negative) Salicylates mg/dL Urine Opiates Screen (NotDetected) Ur Oxycodone Screen (NotDetected) Urine Methadone Screen (NotDetected) Acetaminophen ug/mL Ur Barbiturates Screen (NotDetected) Valproic Acid ug/mL Carbamazepine (4.0-12.0) UG/ML U Tricyclic Antidepress (NotDetected) Ur Phencyclidine Scrn (NotDetected) Ur Amphetamines Screen (NotDetected) U Methamphetamines Scrn (NotDetected) U Benzodiazepines Scrn (NotDetected) Urine Cocaine Screen (NotDetected) U Marijuana (THC) Screen (NotDetected) Serum Alcohol mg/dL - EKG Data -: EKG Interpreted by Me (EKG is sinus 60 GA 147 QRS 110 QTc 411) Disposition Clinical Impression: Drug overdose Disposition: HOME SELF-CARE Condition: Good Instructions (If sedation given, give patient instructions): Adult Overdose (ED) Is patient prescribed a controlled substance at d/c from ED?: No Referrals: Sri Anderson DO [Primary Care Provider] - 1-2 days Time of Disposition: 18:30
[2025-01-15] MEDS: SODIUM CHLORIDE 0.9% 1,000 ML IV STA (14:39)
[2025-01-15] MEDS: NALOXONE 0.4 MG/ML 1 ML VIAL IV STA (14:42)
[2025-01-15 14:55] LABS: Appearance,Urine Clear (Clear); Bilirubin,Urine Negative (Negative); Blood,Urine Negative (Negative); Color,Urine Yellow; Glucose,Urine (UA) Negative (Negative); Ketones,Urine Negative (Negative); Leukocyte Esterase,Urine Negative (Negative); Nitrite,Urine Negative (Negative); Protein,Urine Trace (Negative); Specific Gravity,Urine 1.033 (1.001-1.035); Urobilinogen,Urine <2.0 mg/dL (<2.0)
[2025-01-15 15:09] LABS: ALT 16 U/L (4-49); Acetaminophen <10.0 ug/mL; African American GFR (CKD) >90 (>60 ml/min/1.73 sqM); Albumin 3.8 g/dL (3.5-5.0); Alcohol <10 mg/dL; Anion Gap 10 mmol/L; Blood Urea Nitrogen 13 mg/dL (9-20); Carbon Dioxide 24 mmol/L (22-30); Chloride 104 mmol/L (98-107); Glucose 99 mg/dL (74-99); Lipase 123 U/L (23-300); Non-African American GFR(CKD) >90 (>60 ml/min/1.73 sqM); Salicylate <1.0 mg/dL; Sodium 138 mmol/L (137-145); Total Bilirubin 0.4 mg/dL (0.2-1.3); Total Protein 6.7 g/dL (6.3-8.2)
[2025-01-15 15:13] LABS: Amphetamine Screen,Urine Detected (NotDetected); Barbiturate Screen,Urine Not Detected (NotDetected); Benzodiazepines Screen,Urine Not Detected (NotDetected); Cocaine Screen,Urine Not Detected (NotDetected); Methadone Screen, Urine Not Detected (NotDetected); Opiate Screen,Urine Not Detected (NotDetected); Oxycodone Screen, Urine Not Detected (NotDetected); Phencyclidine Screen,Urine Not Detected (NotDetected); Tricyclic Antidepressant,Urine Not Detected (NotDetected); Urn Cannabinoid Scrn Not Detected (NotDetected)
[2025-01-15 15:14] LABS: Valproic Acid (Depakene) <10.0 ug/mL
[2025-01-15 15:16] LABS: AST 24 U/L (17-59); Alkaline Phosphatase 77 U/L (38-126); Potassium 3.8 mmol/L (3.5-5.1)
[2025-01-15 16:18] LABS: Basophils # (A) 0.1 k/uL (0-0.2); Basophils % (A) 0 %; Eosinophils # (A) 0.4 k/uL (0-0.7); Eosinophils % (A) 2 %; HCT 45.4 % (39.0-53.0); Lymphocytes # (A) 1.3 k/uL (1.0-4.8); Lymphocytes % (A) 8 %; MCH 27.7 pg (25.0-35.0); MCHC 30.9 g/dL (31.0-37.0); MCV 89.8 fL (80.0-100.0); Mean Platelet Volume 6.8; Monocytes # (A) 0.6 k/uL (0-1.0); Monocytes % (A) 4 %; Neutrophils # (A) 14.2 k/uL (1.3-7.7); Neutrophils % (A) 85 %; Platelet Count 261 k/uL (150-450); RBC 5.05 m/uL (4.30-5.90); RDW 12.8 % (11.5-15.5); WBC 16.7 k/uL (3.8-10.6)
[2025-01-15 18:27] VITALS: RESP 18
[2025-01-15 19:27] VITALS: BP 146/109; PULSE 105; TEMP 98.1
[2025-01-16 20:55] LABS: Carbamazepine (Tegretol) <2.0 UG/ML (4.0-12.0)
== END 2025-01-15 19:47 | disposition home or self-care (01) ==
LOC: EC 14:26
DX: T50.902A Poisoning by unspecified drugs, medicaments and biological substances, intentional self-harm, initial encounter (principal); F17.290 Nicotine dependence, other tobacco product, uncomplicated
CPT/HCPCS: 36415; 93005; 80156; 80164; 80053; 83690; 84484; 85025; 81003; 80306; 80143; 80179; 99285; 96374; G0480; J2310; 80320

== ENCOUNTER 2025-02-22 11:40 | Inpatient (IN) | payer OTHER ==
[2025-02-22] MEDS: NALOXONE 0.4 MG/ML 10 ML VIAL IVP PRN (11:51)
[2025-02-22] MEDS ORDERED: IPRATROPIUM-ALBUTEROL 3 ML NEB INHALATION PRN (11:53)
--- NOTE | 2025-02-22 11:57 | ED ---
General Adult HPI - General Chief complaint: Altered Mental Status Stated complaint: unresponsive Time Seen by Provider: 02/22/25 11:41 Source: EMS, RN notes reviewed Mode of arrival: EMS Limitations: altered mental status - History of Present Illness Initial comments: Patient is a 39-year-old male presenting to the emergency department by EMS after being found unresponsive in [place]'s bathroom. Patient is unresponsive and unable to provide any history at this time. Patient does have history of similar episode a couple of months ago associated with reported GHB overdose. There is also reported problems at home. EMS reports normal blood sugar. EMS reports patient did arouse to sternal rub. - Related Data Home Medications Medication Instructions Recorded Confirmed No Known Home Medications 01/15/25 02/22/25 Allergies Allergy/AdvReac Type Severity Reaction Status Date / Time lisinopril Allergy Unknown - Verified 02/22/25 13:39 see comment Review of Systems ROS Statement: Those systems with pertinent positive or pertinent negative responses have been documented in the HPI. ROS Other: All systems not noted in ROS Statement are negative. Limitations: ROS unobtainable due to patients medical condition Past Medical History Past Medical History: Hypertension Additional Past Medical History / Comment(s): Migraines, syncope History of Any Multi-Drug Resistant Organisms: None Reported Past Surgical History: No Surgical Hx Reported Additional Past Surgical History / Comment(s): Hip repair Past Anesthesia/Blood Transfusion Reactions: No Reported Reaction Past Psychological History: Anxiety, Depression Smoking Status: Vaper Past Alcohol Use History: None Reported, Occasional Past Drug Use History: Marijuana General Exam Limitations: altered mental status General appearance: obtunded Head exam: Present: atraumatic Eye exam: Present: other (Pupils constricted and slow to react) ENT exam: Present: normal oropharynx, other (No gag reflex) Neck exam: Present: normal inspection. Absent: tenderness Respiratory exam: Present: normal lung sounds bilaterally Cardiovascular Exam: Present: regular rate, normal rhythm GI/Abdominal exam: Present: soft. Absent: tenderness Extremities exam: Present: normal inspection Expanded Neurological exam: Absent: protecting the airway Eye Response: (1) no response Motor Response: (4) withdraws to pain (Patient does arouse somewhat to sternal rub however does not protect airway) Verbal Response: (1) no verbal response Psychiatric exam: Present: other (Nonverbal) Skin exam: Present: normal color Course Vital Signs 02/22/25 02/22/25 02/22/25 11:44 11:51 11:54 Temperature Pulse Rate 54 L Respiratory 20 10 L Rate Blood Pressure 156/102 O2 Sat by Pulse 95 Oximetry Fraction of 100 Inspired Oxygen (FIO2) 02/22/25 02/22/25 02/22/25 12:05 12:20 12:22 Temperature 90.5 F L Pulse Rate 52 L Respiratory 18 Rate Blood Pressure 139/100 O2 Sat by Pulse 100 Oximetry Fraction of 100 Inspired Oxygen (FIO2) 02/22/25 02/22/25 12:32 13:00 Temperature 92 F L Pulse Rate 64 Respiratory 20 Rate Blood Pressure 146/106 O2 Sat by Pulse 100 Oximetry Fraction of 50 Inspired Oxygen (FIO2) EKG Findings - EKG Results: EKG: interpreted by ERMD, sinus rhythm, normal axis, normal QRS, normal ST/T EKG shows: bradycardia Procedures - ABG Interpretation Ph: 7.4 PCO2: 37.5 PO2: 488 - Intubation Paralytic: Succinylcholine Mg Given: 100 Laryngoscope: Nusrat Size: 3 Tube Secured Depth (cm): 23 Tube Secured Location: lips Tube Placement Confirmation: visualized tube passing through cords, equal breath sounds bilaterally, confirmation by capnometry Patient Tolerated Procedure: well Intubation Complications: none Medical Decision Making - Medical Decision Making Was pt. sent in by a medical professional or institution ([facility]IGU[facility] Powers, TELEVISION ACTOR, urgent care, hospital, or retirement...) When possible be specific @ -[No] Did you speak to anyone other than the patient for history (EMS, parent, family, police, friend...)? What history was obtained from this source @ -EMS provides history as patient is unresponsive Did you review nursing and triage notes (agree or disagree)? Why? @ -[I reviewed and agree with nursing and triage notes] Were old charts reviewed (outside hosp., previous admission, EMS record, old EKG, old radiological studies, urgent care reports/EKG's, retirement records)? Report findings @ -Previous visit reviewed Differential Diagnosis (chest pain, altered mental status, abdominal pain women, abdominal pain men, vaginal bleeding, weakness, fever, dyspnea, syncope, headache, dizziness, GI bleed, back pain, seizure, CVA, palpatations, mental health, musculoskeletal)? @ -Differential Altered Mental Status: Hypoglycemia, DKA, hypercapnia, ETOH, overdose, CO poisoning, trauma, myxedema coma, HTN encephalopathy, infection, encephalitis, psychosis, intercranial hemorrhage, hepatic encephalopathy, meningitis, CVA, this is not meant to be an all-inclusive list EKG interpreted by me (3pts min.). @ -[As above] X-rays interpreted by me (1pt min.). @ -Chest x-ray shows endotracheal tube in the appropriate position. CT interpreted by me (1pt min.). @ -CT brain and C-spine without acute abnormality U/S interpreted by me (1pt. min.). @ -[None done] What testing was considered but not performed or refused? (CT, X-rays, U/S, labs)? Why? @ -[None] What meds were considered but not given or refused? Why? @ -[None] Did you discuss the management of the patient with other professionals (professionals i.e. ., PA, TELEVISION ACTOR, lab, RT, psych nurse, psychiatric social worker supervisor, insole buffer, teacher, botanical technical officer, watch case polisher)? Give summary @ -Case discussed with practitioner Bill who will admit covering hospital call. Case also discussed with critical care Dr. hermosillo who will consult and did see patient in the emergency department. Was smoking cessation discussed for >3mins.? @ -[No] Was critical care preformed (if so, how long)? @ -31 minutes critical care time Were there social determinants of health that impacted care today? How? (Homelessness, low income, unemployed, alcoholism, drug addiction, transportation, low edu. Level, literacy, decrease access to med. care, custodial, rehab)? @ -[No] Was there de-escalation of care discussed even if they declined (Discuss DNR or withdrawal of care, Hospice)? DNR status @ -[No] What co-morbidities impacted this encounter? (DM, HTN, Smoking, COPD, CAD, Cancer, CVA, ARF, Chemo, Hep., AIDS, mental health diagnosis, sleep apnea, morbid obesity)? @ -History of previous overdose Was patient admitted / discharged? Hospital course, mention meds given and route, prescriptions, significant lab abnormalities, going to OR and other pertinent info. @ -Patient presents with suspicion for overdose, found in bathroom unresponsive. Similar episode a couple months ago. Patient not protecting airway and did require intubation on arrival. Patient will be admitted. Admission orders written. Undiagnosed new problem with uncertain prognosis? @ -[No] Drug Therapy requiring intensive monitoring for toxicity (Heparin, Nitro, Insulin, Cardizem)? @ -[No] Were any procedures done? @ -Intubation, see above Diagnosis/symptom? @ -Overdose, respiratory failure Acute, or Chronic, or Acute on Chronic? @ -Acute, acute Uncomplicated (without systemic symptoms) or Complicated (systemic symptoms)? @ -[default] Side effects of treatment? @ -[No] Exacerbation, Progression, or Severe Exacerbation? @ -[No] Poses a threat to life or bodily function? How? (Chest pain, [place], HI, pneumonia, PE, COPD, DKA, ARF, appy, cholecystitis, CVA, Diverticulitis, Homicidal, Suicidal, threat to staff... and all critical care pts) @ -Threat to pulmonary function - Lab Data Result diagrams: 02/22/25 11:58 02/22/25 11:58 Lab Results 02/22/25 02/22/25 02/22/25 Range/Units 11:58 11:58 11:58 WBC 8.4 (3.8-10.6) k/uL RBC 4.90 (4.30-5.90) m/uL Hgb 13.8 (13.0-17.5) gm/dL Hct 42.5 (39.0-53.0) % MCV 86.7 (80.0-100.0) fL MCH 28.1 (25.0-35.0) pg MCHC 32.4 (31.0-37.0) g/dL RDW 13.5 (11.5-15.5) % Plt Count 302 (150-450) k/uL MPV 6.7 Neutrophils % 74 % Lymphocytes % 15 % Monocytes % 6 % Eosinophils % 3 % Basophils % 1 % Neutrophils # 6.3 (1.3-7.7) k/uL Lymphocytes # 1.3 (1.0-4.8) k/uL Monocytes # 0.5 (0-1.0) k/uL Eosinophils # 0.3 (0-0.7) k/uL Basophils # 0.1 (0-0.2) k/uL PT 10.5 (10.0-12.5) sec INR 0.9 (<1.2) APTT 22.6 (22.0-30.0) sec Sample Site ABG pH (7.35-7.45) ABG pCO2 (35-45) mmHg ABG pO2 (83-108) mmHg ABG HCO3 (21-25) mmol/L ABG Total CO2 (19-24) mmol/L ABG O2 Saturation (94-97) % ABG Base Excess mmol/L Ananth Test Hemoglobin (13.0-17.5) gm/dL FiO2 % Sodium 140 (137-145) mmol/L Potassium 4.2 (3.5-5.1) mmol/L Chloride 106 (98-107) mmol/L Carbon Dioxide 25 (22-30) mmol/L Anion Gap 9 mmol/L BUN 11 (9-20) mg/dL Creatinine 0.74 (0.66-1.25) mg/dL Est GFR (CKD-EPI)AfAm >90 (>60 ml/min/1.73 sqM) Est GFR (CKD-EPI)NonAf >90 (>60 ml/min/1.73 sqM) Glucose 107 H (74-99) mg/dL POC Glucose (mg/dL) (70-110) mg/dL POC Glu Marketing Communications Assistant ID Calcium 8.9 (8.4-10.2) mg/dL Total Bilirubin 0.4 (0.2-1.3) mg/dL AST 31 (17-59) U/L ALT 17 (4-49) U/L Alkaline Phosphatase 72 (38-126) U/L Troponin I (0.000-0.034) ng/mL Total Protein 7.1 (6.3-8.2) g/dL Albumin 4.1 (3.5-5.0) g/dL Urine Opiates Screen (NotDetected) Ur Oxycodone Screen (NotDetected) Urine Methadone Screen (NotDetected) Ur Barbiturates Screen (NotDetected) U Tricyclic Antidepress (NotDetected) Ur Phencyclidine Scrn (NotDetected) Ur Amphetamines Screen (NotDetected) U Methamphetamines Scrn (NotDetected) U Benzodiazepines Scrn (NotDetected) Urine Cocaine Screen (NotDetected) U Marijuana (THC) Screen (NotDetected) Serum Alcohol <10 mg/dL 02/22/25 02/22/25 02/22/25 Range/Units 11:58 12:14 12:18 WBC (3.8-10.6) k/uL RBC (4.30-5.90) m/uL Hgb (13.0-17.5) gm/dL Hct (39.0-53.0) % MCV (80.0-100.0) fL MCH (25.0-35.0) pg MCHC (31.0-37.0) g/dL RDW (11.5-15.5) % Plt Count (150-450) k/uL MPV Neutrophils % % Lymphocytes % % Monocytes % % Eosinophils % % Basophils % % Neutrophils # (1.3-7.7) k/uL Lymphocytes # (1.0-4.8) k/uL Monocytes # (0-1.0) k/uL Eosinophils # (0-0.7) k/uL Basophils # (0-0.2) k/uL PT (10.0-12.5) sec INR (<1.2) APTT (22.0-30.0) sec Sample Site ABG pH (7.35-7.45) ABG pCO2 (35-45) mmHg ABG pO2 (83-108) mmHg ABG HCO3 (21-25) mmol/L ABG Total CO2 (19-24) mmol/L ABG O2 Saturation (94-97) % ABG Base Excess mmol/L Ananth Test Hemoglobin (13.0-17.5) gm/dL FiO2 % Sodium (137-145) mmol/L Potassium (3.5-5.1) mmol/L Chloride (98-107) mmol/L Carbon Dioxide (22-30) mmol/L Anion Gap mmol/L BUN (9-20) mg/dL Creatinine (0.66-1.25) mg/dL Est GFR (CKD-EPI)AfAm (>60 ml/min/1.73 sqM) Est GFR (CKD-EPI)NonAf (>60 ml/min/1.73 sqM) Glucose (74-99) mg/dL POC Glucose (mg/dL) 109 (70-110) mg/dL POC Glu Marketing Communications Assistant ID Elke Villarreal Calcium (8.4-10.2) mg/dL Total Bilirubin (0.2-1.3) mg/dL AST (17-59) U/L ALT (4-49) U/L Alkaline Phosphatase (38-126) U/L Troponin I <0.012 (0.000-0.034) ng/mL Total Protein (6.3-8.2) g/dL Albumin (3.5-5.0) g/dL Urine Opiates Screen Not Detected (NotDetected) Ur Oxycodone Screen Not Detected (NotDetected) Urine Methadone Screen Not Detected (NotDetected) Ur Barbiturates Screen Not Detected (NotDetected) U Tricyclic Antidepress Not Detected (NotDetected) Ur Phencyclidine Scrn Not Detected (NotDetected) Ur Amphetamines Screen Detected H (NotDetected) U Methamphetamines Scrn Detected H (NotDetected) U Benzodiazepines Scrn Detected H (NotDetected) Urine Cocaine Screen Not Detected (NotDetected) U Marijuana (THC) Screen Not Detected (NotDetected) Serum Alcohol mg/dL 02/22/25 Range/Units 12:25 WBC (3.8-10.6) k/uL RBC (4.30-5.90) m/uL Hgb (13.0-17.5) gm/dL Hct (39.0-53.0) % MCV (80.0-100.0) fL MCH (25.0-35.0) pg MCHC (31.0-37.0) g/dL RDW (11.5-15.5) % Plt Count (150-450) k/uL MPV Neutrophils % % Lymphocytes % % Monocytes % % Eosinophils % % Basophils % % Neutrophils # (1.3-7.7) k/uL Lymphocytes # (1.0-4.8) k/uL Monocytes # (0-1.0) k/uL Eosinophils # (0-0.7) k/uL Basophils # (0-0.2) k/uL PT (10.0-12.5) sec INR (<1.2) APTT (22.0-30.0) sec Sample Site Right Radial ABG pH 7.40 (7.35-7.45) ABG pCO2 38 (35-45) mmHg ABG pO2 >420 H (83-108) mmHg ABG HCO3 23 (21-25) mmol/L ABG Total CO2 24 (19-24) mmol/L ABG O2 Saturation >100.0 H (94-97) % ABG Base Excess -1.2 mmol/L Ananth Test Yes Hemoglobin 14.1 (13.0-17.5) gm/dL FiO2 100 % Sodium (137-145) mmol/L Potassium (3.5-5.1) mmol/L Chloride (98-107) mmol/L Carbon Dioxide (22-30) mmol/L Anion Gap mmol/L BUN (9-20) mg/dL Creatinine (0.66-1.25) mg/dL Est GFR (CKD-EPI)AfAm (>60 ml/min/1.73 sqM) Est GFR (CKD-EPI)NonAf (>60 ml/min/1.73 sqM) Glucose (74-99) mg/dL POC Glucose (mg/dL) (70-110) mg/dL POC Glu Marketing Communications Assistant ID Calcium (8.4-10.2) mg/dL Total Bilirubin (0.2-1.3) mg/dL AST (17-59) U/L ALT (4-49) U/L Alkaline Phosphatase (38-126) U/L Troponin I (0.000-0.034) ng/mL Total Protein (6.3-8.2) g/dL Albumin (3.5-5.0) g/dL Urine Opiates Screen (NotDetected) Ur Oxycodone Screen (NotDetected) Urine Methadone Screen (NotDetected) Ur Barbiturates Screen (NotDetected) U Tricyclic Antidepress (NotDetected) Ur Phencyclidine Scrn (NotDetected) Ur Amphetamines Screen (NotDetected) U Methamphetamines Scrn (NotDetected) U Benzodiazepines Scrn (NotDetected) Urine Cocaine Screen (NotDetected) U Marijuana (THC) Screen (NotDetected) Serum Alcohol mg/dL Critical Care Time Critical Care Time: Yes Disposition Clinical Impression: Overdose, Respiratory failure Disposition: ADMITTED IP TO THIS [facility] Condition: Critical Is patient prescribed a controlled substance at d/c from ED?: No Referrals: None,Stated [Primary Care Provider] - 1-2 days Time of Disposition: 13:44
[2025-02-22] MEDS: SUCCINYLCHOLINE CHLORIDE 200 MG/10 ML VIAL IV STA (11:59)
[2025-02-22 12:16] LABS: Glucose,Whole Blood 109 mg/dL (70-110)
[2025-02-22 12:23] LABS: Basophils # (A) 0.1 k/uL (0-0.2); Basophils % (A) 1 %; Eosinophils # (A) 0.3 k/uL (0-0.7); Eosinophils % (A) 3 %; HCT 42.5 % (39.0-53.0); HGB 13.8 gm/dL (13.0-17.5); INR 0.9 (<1.2); Lymphocytes # (A) 1.3 k/uL (1.0-4.8); Lymphocytes % (A) 15 %; MCH 28.1 pg (25.0-35.0); MCHC 32.4 g/dL (31.0-37.0); MCV 86.7 fL (80.0-100.0); Mean Platelet Volume 6.7; Monocytes # (A) 0.5 k/uL (0-1.0); Monocytes % (A) 6 %; Neutrophils # (A) 6.3 k/uL (1.3-7.7); Neutrophils % (A) 74 %; Partial Thromboplastin Time 22.6 sec (22.0-30.0); Platelet Count 302 k/uL (150-450); Prothrombin Time 10.5 sec (10.0-12.5); RDW 13.5 % (11.5-15.5); WBC 8.4 k/uL (3.8-10.6)
[2025-02-22 12:26] LABS: ALT 17 U/L (4-49); AST 31 U/L (17-59); African American GFR (CKD) >90 (>60 ml/min/1.73 sqM); Albumin 4.1 g/dL (3.5-5.0); Alcohol <10 mg/dL; Alkaline Phosphatase 72 U/L (38-126); Anion Gap 9 mmol/L; Blood Urea Nitrogen 11 mg/dL (9-20); Calcium 8.9 mg/dL (8.4-10.2); Carbon Dioxide 25 mmol/L (22-30); Chloride 106 mmol/L (98-107); Glucose 107 mg/dL (74-99); Non-African American GFR(CKD) >90 (>60 ml/min/1.73 sqM); Potassium 4.2 mmol/L (3.5-5.1); Sodium 140 mmol/L (137-145); Total Bilirubin 0.4 mg/dL (0.2-1.3); Total Protein 7.1 g/dL (6.3-8.2)
[2025-02-22 12:28] LABS: ABG Base Excess -1.2 mmol/L; ABG HCO3 23 mmol/L (21-25); ABG Oxygen Saturation >100.0 % (94-97); ABG PCO2 38 mmHg (35-45); ABG TCO2 24 mmol/L (19-24); Allen Test Performed? Yes
[2025-02-22 12:30] LABS: ABG PO2 >420 mmHg (83-108)
--- NOTE | 2025-02-22 12:35 | XR ---
EXAMINATION TYPE: XR chest 1V portable DATE OF EXAM: 02/22/2025 COMPARISON: NONE CLINICAL INDICATION: Male, 39 years old with history of altered mental status; TECHNIQUE: Single frontal view of the chest is obtained. FINDINGS: There is endotracheal tube terminating at the inferior clavicular level approximately 4 cm above the mg. There is orogastric tube extending below diaphragm. There is no focal air space opacity, pleural effusion, or pneumothorax seen. The cardiac silhouette size is within normal limits. There is old fracture of the posterior left sixth rib. IMPRESSION: 1. Stable endotracheal and orogastric tubes. 2. No acute cardiopulmonary process. [facility], , 02/22/2025 12:33 PM
[2025-02-22 12:58] LABS: Amphetamine Screen,Urine Detected (NotDetected); Barbiturate Screen,Urine Not Detected (NotDetected); Benzodiazepines Screen,Urine Detected (NotDetected); Cocaine Screen,Urine Not Detected (NotDetected); Methadone Screen, Urine Not Detected (NotDetected); Opiate Screen,Urine Not Detected (NotDetected); Oxycodone Screen, Urine Not Detected (NotDetected); Phencyclidine Screen,Urine Not Detected (NotDetected); Tricyclic Antidepressant,Urine Not Detected (NotDetected); Urn Cannabinoid Scrn Not Detected (NotDetected)
--- NOTE | 2025-02-22 13:11 | CT ---
EXAMINATION TYPE: CT brain cspine wo con CT DLP: 1418.9 mGycm, Automated exposure control for dose reduction was used. DATE OF EXAM: 02/22/2025 1:05 PM COMPARISON: None.. CLINICAL INDICATION:Male, 39 years old with history of ams; AMS. TECHNIQUE: Brain: Multiple axial CT images of the brain were obtained without IV contrast. Cspine: Axial CT images from the skull base to the inferior aspect of T2 we obtained without intraven ous contrast. Coronal and sagittal reformatted images were also reviewed. FINDINGS: Brain: Extra-axial spaces: No abnormal extra-axial fluid collections. Ventricular system: Within normal limits Cerebral parenchyma: No acute intraparenchymal hemorrhage or mass effect. The berrios-white junction is well differentiated. Cerebellum: Unremarkable. Mass effect: No evidence of midline shift. Intracranial vasculature: unremarkable Soft tissues: Normal. Calvarium/osseous structures: No depressed skull fracture. Paranasal sinuses and mastoid air cells: The mastoid air cells are clear. Bilateral external auditory canal cerumen. Mild mucosal thickening of the ethmoid sinuses. Remaining paranasal sinuses are clear . Visualized orbits: Orbital contents are intact. Other: Partial visualization of endotracheal and enteric tubes. Cervical spine: Fracture: None. Osseous structures: Disc space narrowing with endplate sclerosis at C3-C4. Vertebral alignment: Within normal limits. Spinal canal/Neural Foramina: No evidence of significant spinal canal narrowing. No evidence for sign ificant neural foraminal stenosis. Neck soft tissues: Prevertebral soft tissues are within normal limits. Other: The lung apices are clear. Partial visualization of endotracheal and enteric tubes. Secretions /debris within the nasopharynx, larynx, and oropharynx. IMPRESSION: 1. No acute intracranial process. 2. No evidence of cervical spine fracture. 3. Partial visualization of endotracheal and enteric tubes with secretions/debris within the nasophar ynx, larynx, and oropharynx. [facility], , 02/22/2025 1:09 PM
--- NOTE | 2025-02-22 14:32 | P.CNPUL ---
History of Present Illness Consult date: 02/22/25 Chief complaint: Drug overdose History of present illness: This is a this is a 39-year-old male patient who presented to the emergency department unresponsive. The patient was found to have a [place] bathroom. The patient has taken GHB, exact amount is unknown. He had a similar episode few months back. He was completely unresponsive and he was unable to protect his airways. Based on that, the patient was intubated and placed on the m HandMinderanical ventilator. At this point, the patient is still in the emergency. He is on propofol running at 35 mcg/kg/min. He is on assist-control mode at rate of 18 tidal volume of 505 to 50% with a PEEP of 5. He is on normal citrate of 100 cc an hour. Hemodynamically stable. Blood gas postintubation showed a pH of 7.4 with a pCO2 of 38 and pO2 more than 420 and this was an FiO2 of 100%. Chest x-ray shows no acute cardiopulmonary process. Tubes are in good location. CAT scan of the head and neck was also done that showed no acute intracranial process, no evidence of any cervical spine fracture. White cell count 8.4 hemoglobin 13.8 platelet count of 302. Normal coagulation profile. Electrolytes are normal. Renal function is normal. Urine drug screen is positive for benzodiazepines, methamphetamine and amphetamine. Alcohol level is negative. Producing adequate amount of urine output. No seizure activity has been noted. He is known to have hypertension. He also has history of anxiety and depression. Review of Systems ROS unobtainable: due to endotracheal tube Past Medical History Past Medical History: Hypertension Additional Past Medical History / Comment(s): Migraines, syncope History of Any Multi-Drug Resistant Organisms: None Reported Past Surgical History: No Surgical Hx Reported Additional Past Surgical History / Comment(s): Hip repair Past Anesthesia/Blood Transfusion Reactions: No Reported Reaction Past Psychological History: Anxiety, Depression Smoking Status: Vaper Past Alcohol Use History: None Reported, Occasional Past Drug Use History: Marijuana Medications and Allergies Home Medications Medication Instructions Recorded Confirmed Type No Known Home Medications 01/15/25 02/22/25 History Allergies Allergy/AdvReac Type Severity Reaction Status Date / Time lisinopril Allergy Unknown - Verified 02/22/25 13:39 see comment Physical Exam Vitals: Vital Signs Temp Pulse Resp BP Pulse Ox FiO2 02/22/25 14:06 60 20 158/100 100 04/04/25 13:00 92 F L 64 20 146/106 100 02/22/25 12:32 50 02/22/25 12:22 90.5 F L 02/22/25 12:20 52 L 18 139/100 100 02/22/25 12:05 100 02/22/25 11:54 100 02/22/25 11:51 10 L 02/22/25 11:44 54 L 20 156/102 95 Intake and Output 02/21/25 02/22/25 02/22/25 22:59 06:59 14:59 Intake Total 2.286 Balance 2.286 Intake: Intake, IV Titration 2.286 Amount propofoL 1,000 mg In 2.286 Empty Bag 1 bag @ 15 MCG/ KG/MIN 6.532 mls/hr IV . [id number] [facility] Rx#:[id number] Other: Weight 72.575 kg The patient appeared well nourished and normally developed. Vital signs as documented., Comfortable, on propofol. Intubated on mechanical ventilator. Orogastric and orotracheal tube are both in place. Head exam is unremarkable. No scleral icterus or corneal arcus noted. Neck is without jugular venous distension, thyromegaly, or carotid bruits. Carotid upstrokes are brisk bilaterally. Lungs are clear to auscultation and percussion. Cardiac exam reveals the PMI to be normally sized and situated. Rhythm is re gular. First and second heart sounds normal. No murmurs, rubs or gallops. Abdominal exam reveals normal bowel sounds, no masses, no organomegaly and no aortic enlargement. Extremities are nonedematous and both femoral and pedal pulses are normal. Examination of the skin revealed no evidence of significant rashes, suspicious appearing nevi or other concerning lesions. Neurologically, the patient is awake and alert and the patient does not have any focal neurological deficit. Cranial nerves are essentially intact. Results - Laboratory Findings CBC and BMP: 02/22/25 11:58 02/22/25 11:58 ABG ABG pH 7.40 (7.35-7.45) 02/22/25 12:25 ABG pCO2 38 mmHg (35-45) 02/22/25 12:25 ABG pO2 >420 mmHg (83-108) H 02/22/25 12:25 ABG O2 Saturation >100.0 % (94-97) H 02/22/25 12:25 PT/INR, D-dimer PT 10.5 sec (10.0-12.5) 02/22/25 11:58 INR 0.9 (<1.2) 02/22/25 11:58 Abnormal lab findings: Abnormal Labs 02/22/25 02/22/25 02/22/25 11:58 12:18 12:25 ABG pO2 >420 H ABG O2 Saturation >100.0 H Glucose 107 H Ur Amphetamines Screen Detected H U Methamphetamines Scrn Detected H U Benzodiazepines Scrn Detected H - Diagnostic Findings Chest x-ray: image reviewed Assessment and Plan Plan: Acute drug overdose, likely GHB. The patient was completely unresponsive at time of ED admission and the patient was unable to protect airways. Patient was intubated and placed on the mechanical ventilator for airway protection. Adequate oxygenation. Chest x-ray is within normal limits. CAT scan of the head and cervical spine was also within normal limits. Hemodynamically stable. Chronic anxiety/depression Plan Keep propofol Continue vent support IV fluids Anticipate recovery from this GHB overdose over the next few hours Lovenox for DVT prophylaxis IV Protonix Psych evaluation once liberated from the mechanical ventilator Will continue to follow Time with Patient: Greater than 30
[2025-02-22 15:25] LABS: Glucose,Whole Blood 104 mg/dL (70-110)
[2025-02-22] MEDS ORDERED: Magnesium Replacement Protocol 1 EACH MISC MISCELLANE PRN (15:28)
[2025-02-22] MEDS ORDERED: Potassium Replacement Protocol 1 EACH MISC MISCELLANE PRN (15:28)
[2025-02-22] MEDS ORDERED: ACETAMINOPHEN TAB 325 MG TAB PO PRN (15:28)
[2025-02-22] MEDS: fentaNYL (PF). 1,000 MCG in SODIUM CHLORIDE 0.9% 80 ML IV SCH (15:44)
[2025-02-22] MEDS: SODIUM CHLORIDE 0.9% 1,000 ML IV SCH (15:57)
[2025-02-22 17:03] LABS: Acetaminophen <10.0 ug/mL; Salicylate <1.0 mg/dL
--- NOTE | 2025-02-22 17:18 | P.HPIM ---
History of Present Illness H&P Date: 02/22/25 39 year old M presents to the ED via EMS after an apparent drug overdose at [facility]. In the ED he underwent extensive evaluation. BP 156/102, RR 20, HR 54, 95% on RA, Tlow 90.5F. CBC, Coag panel, CMP significant for glu 107. Trop < 0.012. ABG pH 7.4, pCO2 38. UDS + amphetamines, methamphetamine, benzodiazepine. Serum ETOH neg. EKG sinus bradycardia with ST depression. CXR and CT brain/C- spine no acute process. He was intubated in the ED to protect his airway. General: Intubated Derm: warm, dry Head: atraumatic, normocephalic, symmetric, ETT intact Mouth: no lip lesion, mucus membranes moist Cardiovascular: S1S2 tachy, no murmur Lungs: Decreased BS bilaterally, no rales , no accessory muscle use Ext: no gross muscle atrophy, no edema, no contractures Neuro: Unable to determine Psych: Unable to determine Based on my assessment of this patient, this patient meets a high complexity level of care. Acute hypoxic respiratory failure: Fentanyl at 0.5 mcg/kg/hr. Propofol at 50 mcg/kg/min. DuoNeb PRN SOB/wheezing. Telemetry monitoring. Elevated HOB. Vent management per Pulmonary. Acute toxic encephalopathy: Likely due to below. Check Acetaminophen and Salicylate level. Acute drug overdose: Management as above. CODE STATUS: FULL CODE. DVT Prophylaxis: Lovenox SQ. GI Prophylaxis: Protonix IV. Designated medical POA if patient is not able to make medical decisions for themselves: I have reviewed the following process improvement consultant notes: ED note, Pulmonary. I have reviewed the results of the following tests: As above. I have ordered the following tests: As above. I have discussed the care of this patient with the following independent historian: I have independently interpreted the following test below: CXR. I have discussed the management of this patient with the following physician: Past Medical History Past Medical History: Hypertension Additional Past Medical History / Comment(s): Migraines, syncope History of Any Multi-Drug Resistant Organisms: None Reported Past Surgical History: No Surgical Hx Reported Additional Past Surgical History / Comment(s): Hip repair Past Anesthesia/Blood Transfusion Reactions: No Reported Reaction Past Psychological History: Anxiety, Depression Smoking Status: Vaper Past Alcohol Use History: None Reported, Occasional Past Drug Use History: Marijuana Medications and Allergies Home Medications Medication Instructions Recorded Confirmed Type No Known Home Medications 01/15/25 02/22/25 History Allergies Allergy/AdvReac Type Severity Reaction Status Date / Time lisinopril Allergy Unknown - Verified 02/22/25 13:39 see comment Physical Exam Vitals: Vital Signs Temp Pulse Resp BP Pulse Ox FiO2 02/22/25 16:00 96.1 F L 102 H 18 130/88 100 50 02/22/25 15:45 87 18 124/91 100 02/22/25 15:39 50 02/22/25 15:30 82 18 131/96 100 02/22/25 15:21 50 02/22/25 15:16 50 02/22/25 15:15 103 H 18 179/115 91 L 02/22/25 15:00 94.8 F L 89 18 154/114 100 50 02/22/25 14:06 60 20 158/100 100 02/22/25 13:00 92 F L 64 20 146/106 100 02/22/25 12:32 50 02/22/25 12:22 90.5 F L 02/22/25 12:20 52 L 18 139/100 100 02/22/25 12:05 100 02/22/25 11:51 10 L 02/22/25 11:44 54 L 20 156/102 95 Intake and Output 02/22/25 02/22/25 02/22/25 06:59 14:59 22:59 Intake Total 36.832 105.08 Output Total 280 Balance 36.832 -174.92 Intake: IV 100 Sodium Chloride 0.9% 1, 100 000 ml @ 100 mls/hr IV . Q10H [facility] Rx#:[id number] Intake, IV Titration 36.832 5.08 Amount propofoL 1,000 mg In 36.832 5.08 Empty Bag 1 bag @ 15 MCG/ KG/MIN 6.532 mls/hr IV . [id number] [facility]I Rx#:[id number] Output: Urine 280 Other: Weight 72.575 kg Results CBC & Chem 7: 02/22/25 11:58 02/22/25 11:58 Labs: Abnormal Lab Results - Last 24 Hours (Table) 04/04/25 04/04/25 04/04/25 Range/Units 11:58 12:18 12:25 ABG pO2 >420 H (83-108) mmHg ABG O2 Saturation >100.0 H (94-97) % Glucose 107 H (74-99) mg/dL Ur Amphetamines Screen Detected H (NotDetected) U Methamphetamines Scrn Detected H (NotDetected) U Benzodiazepines Scrn Detected H (NotDetected)
[2025-02-22] MEDS: LORazepam 1 MG/0.5 ML VIAL IV PRN (19:05)
[2025-02-22] MEDS: CHLORHEXIDINE GLUCONATE 15 ML CUP MUCOUS MEM SCH (20:20)
[2025-02-22 23:58] LABS: Glucose,Whole Blood 85 mg/dL (70-110)
[2025-02-23 03:45] LABS: ALT 15 U/L (4-49); AST 26 U/L (17-59); African American GFR (CKD) >90 (>60 ml/min/1.73 sqM); Albumin 3.1 g/dL (3.5-5.0); Alkaline Phosphatase 66 U/L (38-126); Anion Gap 8 mmol/L; Blood Urea Nitrogen 11 mg/dL (9-20); Carbon Dioxide 23 mmol/L (22-30); Chloride 109 mmol/L (98-107); Glucose 81 mg/dL (74-99); Non-African American GFR(CKD) >90 (>60 ml/min/1.73 sqM); Potassium 3.4 mmol/L (3.5-5.1); Sodium 140 mmol/L (137-145); Total Bilirubin 0.4 mg/dL (0.2-1.3); Total Protein 5.7 g/dL (6.3-8.2)
[2025-02-23 04:00] LABS: Basophils # (A) 0.1 k/uL (0-0.2); Basophils % (A) 1 %; Eosinophils # (A) 0.3 k/uL (0-0.7); Eosinophils % (A) 3 %; HCT 36.9 % (39.0-53.0); HGB 12.3 gm/dL (13.0-17.5); Lymphocytes # (A) 2.2 k/uL (1.0-4.8); Lymphocytes % (A) 26 %; MCH 28.7 pg (25.0-35.0); MCHC 33.4 g/dL (31.0-37.0); MCV 85.9 fL (80.0-100.0); Monocytes # (A) 0.6 k/uL (0-1.0); Monocytes % (A) 7 %; Neutrophils # (A) 5.4 k/uL (1.3-7.7); Neutrophils % (A) 62 %; Platelet Count 291 k/uL (150-450); RDW 13.6 % (11.5-15.5); WBC 8.6 k/uL (3.8-10.6)
[2025-02-23] MEDS: POTASSIUM BICARBONATE/CIT AC 20 MEQ TABLET.EFF NG-TUBE SCH (05:38)
[2025-02-23 05:56] LABS: ABG Base Excess 1.3 mmol/L; ABG HCO3 25 mmol/L (21-25); ABG Oxygen Saturation >100.0 % (94-97); ABG PCO2 34 mmHg (35-45); ABG PH 7.47 (7.35-7.45); ABG PO2 251 mmHg (83-108); ABG TCO2 26 mmol/L (19-24); Allen Test Performed? Yes
[2025-02-23 05:59] LABS: Glucose,Whole Blood 87 mg/dL (70-110)
--- NOTE | 2025-02-23 08:24 | XR ---
EXAMINATION TYPE: XR chest 1V DATE OF EXAM: 02/23/2025 5:16 AM COMPARISON: 02/22/2025 CLINICAL INDICATION: Male, 39 years old with history of intubated, TECHNIQUE: XR chest 1V view(s) obtained. FINDINGS: The heart size is normal. The pulmonary vasculature is normal. The lungs are clear. Endotracheal tube tip is 3 cm above the mg. Nasogastric tube transverses the thorax. IMPRESSION: 1. No acute pulmonary process. 2. Lines and catheters discussed above [facility], , 02/23/2025 8:22 AM
[2025-02-23] MEDS: PANTOPRAZOLE 40 MG/10 ML VIAL IV SCH (08:29)
[2025-02-23] MEDS: ENOXAPARIN 40 MG/0.4 ML SYRINGE SQ SCH (08:29)
--- NOTE | 2025-02-23 10:31 | P.PN ---
Subjective Progress Note Date: 02/23/25 39 year old M presents to the ED via EMS after an apparent drug overdose at [facility]. In the ED he underwent extensive evaluation. BP 156/102, RR 20, HR 54, 95% on RA, Tlow 90.5F. CBC, Coag panel, CMP significant for glu 107. Trop < 0.012. ABG pH 7.4, pCO2 38. UDS + amphetamines, methamphetamine, benzodiazepine. Serum ETOH neg. EKG sinus bradycardia with ST depression. CXR and CT brain/C- spine no acute process. He was intubated in the ED to protect his airway. 02/23 Patient was seen and examined. Intubated. Sedated with Propofol 50 mcg/kg/min. Paralytic includes Fentanyl at 1.5 mcg/kg/hr. CBC, CMP significant for Hg 12.5, Hct 36.9, K 3.4, Cl 109, alb 3.1. ABG pH 7.47, pCO2 34, pO2 251, FiO2 50%. CXR shows no acute process, ET tube 3 cm above the mg. General: Intubated Derm: warm, dry Head: atraumatic, normocephalic, symmetric, ETT intact Mouth: no lip lesion, mucus membranes moist Cardiovascular: S1S2 tachy, no murmur Lungs: Decreased BS bilaterally, no rales , no accessory muscle use Ext: no gross muscle atrophy, no edema, no contractures Neuro: Unable to determine Psych: Unable to determine Based on my assessment of this patient, this patient meets a high complexity level of care. Acute hypoxic respiratory failure: Fentanyl at 1.5 mcg/kg/hr. Propofol at 50 mcg/kg/min. DuoNeb PRN SOB/wheezing. Telemetry monitoring. Elevated HOB. Vent management per Pulmonary. Acute toxic encephalopathy: Likely due to below. Check Acetaminophen and Salicylate level. Acute drug overdose: Management as above. CODE STATUS: FULL CODE. DVT Prophylaxis: Lovenox SQ. GI Prophylaxis: Protonix IV. Designated medical POA if patient is not able to make medical decisions for themselves: I have reviewed the following cardiology clinical consultant notes: Pulmonary. I have reviewed the results of the following tests: CBC, CMP, ABG. I have ordered the following tests: I have discussed the care of this patient with the following independent historian: I have independently interpreted the following test below: CXR. I have discussed the management of this patient with the following physician: Objective - Vital Signs Vital signs: Vital Signs Temp 97.9 F 02/23/25 08:00 Pulse 79 02/23/25 08:00 Resp 18 02/23/25 08:00 BP 91/63 02/23/25 08:00 Pulse Ox 100 02/23/25 08:00 FiO2 40 02/23/25 05:58 Intake & Output 02/22/25 02/23/25 02/23/25 18:59 06:59 18:59 Intake Total 559.396 7336.961 100 Output Total 355 355 35 Balance -3.955 1196.961 65 Weight 72.575 kg 69.9 kg Intake: IV 300 1200 100 Sodium Chloride 0.9% 1, 300 1200 100 000 ml @ 100 mls/hr IV . Q10H [facility] Rx#:[id number] Intake, IV Titration 51.045 351.961 Amount fentaNYL (PF). 1,000 mcg 9.133 65.439 In Sodium Chloride 0.9% 80 ml @ 0.5 MCG/KG/HR 3. 629 mls/hr IV .Q24H [facility] Rx#:[id number] propofoL 1,000 mg In 41.912 286.522 Empty Bag 1 bag @ 15 MCG/ KG/MIN 6.532 mls/hr IV . [id number] [facility]I Rx#:[id number] Output: Urine 355 355 35 Other: Voiding Method Indwelling Catheter Indwelling Catheter - Labs CBC & Chem 7: 02/23/25 02:28 02/23/25 09:44 Labs: Abnormal Lab Results - Last 24 Hours (Table) 02/22/25 02/22/25 02/22/25 Range/Units 11:58 12:18 12:25 Hgb (13.0-17.5) gm/dL Hct (39.0-53.0) % ABG pH (7.35-7.45) ABG pCO2 (35-45) mmHg ABG pO2 >420 H (83-108) mmHg ABG Total CO2 (19-24) mmol/L ABG O2 Saturation >100.0 H (94-97) % Hemoglobin (13.0-17.5) gm/dL Potassium (3.5-5.1) mmol/L Chloride (98-107) mmol/L Glucose 107 H (74-99) mg/dL Total Protein (6.3-8.2) g/dL Albumin (3.5-5.0) g/dL Ur Amphetamines Screen Detected H (NotDetected) U Methamphetamines Scrn Detected H (NotDetected) U Benzodiazepines Scrn Detected H (NotDetected) 02/23/25 02/23/25 02/23/25 Range/Units 02:28 02:28 05:54 Hgb 12.3 L (13.0-17.5) gm/dL Hct 36.9 L (39.0-53.0) % ABG pH 7.47 H (7.35-7.45) ABG pCO2 34 L (35-45) mmHg ABG pO2 251 H (83-108) mmHg ABG Total CO2 26 H (19-24) mmol/L ABG O2 Saturation >100.0 H (94-97) % Hemoglobin 11.9 L (13.0-17.5) gm/dL Potassium 3.4 L (3.5-5.1) mmol/L Chloride 109 H (98-107) mmol/L Glucose (74-99) mg/dL Total Protein 5.7 L (6.3-8.2) g/dL Albumin 3.1 L (3.5-5.0) g/dL Ur Amphetamines Screen (NotDetected) U Methamphetamines Scrn (NotDetected) U Benzodiazepines Scrn (NotDetected) Microbiology - Last 24 Hours (Table) 02/22/25 15:12 Gram Stain - Preliminary Sputum
[2025-02-23 11:47] LABS: Glucose,Whole Blood 75 mg/dL (70-110)
--- NOTE | 2025-02-23 13:26 | P.PN ---
Subjective Progress Note Date: 02/23/25 This is a this is a 39-year-old male patient who presented to the emergency department unresponsive. The patient was found to have a [employer] bathroom. The patient has taken GHB, exact amount is unknown. He had a similar episode few months back. He was completely unresponsive and he was unable to protect his airways. Based on that, the patient was intubated and placed on the mechanical ventilator. At this point, the patient is still in the emergency. He is on propofol running at 35 mcg/kg/min. He is on assist-control mode at rate of 18 tidal volume of 505 to 50% with a PEEP of 5. He is on normal citrate of 100 cc an hour. Hemodynamically stable. Blood gas postintubation showed a pH of 7.4 with a pCO2 of 38 and pO2 more than 420 and this was an FiO2 of 100%. Chest x-ray shows no acute cardiopulmonary process. Tubes are in good location. CAT scan of the head and neck was also done that showed no acute intracranial process, no evidence of any cervical spine fracture. White cell count 8.4 hemoglobin 13.8 platelet count of 302. Normal coagulation profile. Electrolytes are normal. Renal function is normal. Urine drug screen is positive for benzodiazepines, methamphetamine and amphetamine. Alcohol level is negative. Producing adequate amount of urine output. No seizure activity has been noted. He is known to have hypertension. He also has history of anxiety and depression. On 02/23/2025, the patient is being seen for a follow-up. The patient is hemodynamically stable. Remains intubated on mechanical ventilator. This morning, the patient is on propofol running at 50 mcg/kg/min and fentanyl running at 1.5 mcg/kg/min. Remains on a mechanical ventilator on assist-control mode at rate of 18, tidal volume of 500, FiO2 40% with a PEEP of 5. Blood gases from today showed a pH of 7.47 with a pCO2 of 34 and pO2 of 251. Chest x-ray was noted and shows no acute abnormalities. Hemodynamically, the patient is stable. No significant hypotension. Urine output is adequate. No pressors. White cell count of 8.6, hemoglobin is at 12.3 and a platelet count is 291. BUN is 11 with a creatinine of 0.7. Sodium levels at 140 and a potassium level is at 3.4. Remains on Lovenox for DVT prophylaxis. No other significant events overnight. Remains NPO. Objective - Vital Signs Vital signs: Vital Signs Temp 97.9 F 02/23/25 08:00 Pulse 79 02/23/25 08:00 Resp 18 02/23/25 08:00 BP 91/63 02/23/25 08:00 Pulse Ox 100 02/23/25 08:00 FiO2 40 02/23/25 05:58 Intake & Output 02/22/25 02/23/25 02/23/25 18:59 06:59 18:59 Intake Total 966.601 7850.961 100 Output Total 355 355 35 Balance -3.955 1196.961 65 Weight 72.575 kg 69.9 kg Intake: IV 300 1200 100 Sodium Chloride 0.9% 1, 300 1200 100 000 ml @ 100 mls/hr IV . Q10H [facility] Rx#:[id number] Intake, IV Titration 51.045 351.961 Amount fentaNYL (PF). 1,000 mcg 9.133 65.439 In Sodium Chloride 0.9% 80 ml @ 0.5 MCG/KG/HR 3. 629 mls/hr IV .Q24H [facility] Rx#:[id number] propofoL 1,000 mg In 41.912 286.522 Empty Bag 1 bag @ 15 MCG/ KG/MIN 6.532 mls/hr IV . [id number] [facility]I Rx#:[id number] Output: Urine 355 355 35 Other: Voiding Method Indwelling Catheter Indwelling Catheter - Exam The patient appeared well nourished and normally developed. Vital signs as do cumented., Comfortable, on propofol. Intubated on mechanical ventilator. Orogastric and orotracheal tube are both in place. Head exam is unremarkable. No scleral icterus or corneal arcus noted. Neck is without jugular venous distension, thyromegaly, or carotid bruits. Carotid upstrokes are brisk bilaterally. Lungs are clear to auscultation and percussion. Cardiac exam reveals the PMI to be normally sized and situated. Rhythm is regular. First and second heart sounds normal. No murmurs, rubs or gallops. Abdominal exam reveals normal bowel sounds, no masses, no organomegaly and no aortic enlargement. Extremities are nonedematous and both femoral and pedal pulses are normal. Examination of the skin revealed no evidence of significant rashes, suspicious appearing nevi or other concerning lesions. Neurologically, the patient is awake and alert and the patient does not have any focal neurological deficit. Cranial nerves are essentially intact. - Labs CBC & Chem 7: 02/23/25 02:28 02/23/25 09:44 Labs: Abnormal Lab Results - Last 24 Hours (Table) 02/22/25 02/22/25 02/22/25 Range/Units 11:58 12:18 12:25 Hgb (13.0-17.5) gm/dL Hct (39.0-53.0) % ABG pH (7.35-7.45) ABG pCO2 (35-45) mmHg ABG pO2 >420 H (83-108) mmHg ABG Total CO2 (19-24) mmol/L ABG O2 Saturation >100.0 H (94-97) % Hemoglobin (13.0-17.5) gm/dL Potassium (3.5-5.1) mmol/L Chloride (98-107) mmol/L Glucose 107 H (74-99) mg/dL Total Protein (6.3-8.2) g/dL Albumin (3.5-5.0) g/dL Ur Amphetamines Screen Detected H (NotDetected) U Methamphetamines Scrn Detected H (NotDetected) U Benzodiazepines Scrn Detected H (NotDetected) 02/23/25 02/23/25 02/23/25 Range/Units 02:28 02:28 05:54 Hgb 12.3 L (13.0-17.5) gm/dL Hct 36.9 L (39.0-53.0) % ABG pH 7.47 H (7.35-7.45) ABG pCO2 34 L (35-45) mmHg ABG pO2 251 H (83-108) mmHg ABG Total CO2 26 H (19-24) mmol/L ABG O2 Saturation >100.0 H (94-97) % Hemoglobin 11.9 L (13.0-17.5) gm/dL Potassium 3.4 L (3.5-5.1) mmol/L Chloride 109 H (98-107) mmol/L Glucose (74-99) mg/dL Total Protein 5.7 L (6.3-8.2) g/dL Albumin 3.1 L (3.5-5.0) g/dL Ur Amphetamines Screen (NotDetected) U Methamphetamines Scrn (NotDetected) U Benzodiazepines Scrn (NotDetected) Microbiology - Last 24 Hours (Table) 02/22/25 15:12 Gram Stain - Preliminary Sputum Assessment and Plan Plan: Acute drug overdose, likely GHB. The patient was completely unresponsive at time of ED admission and the patient was unable to protect airways. Patient was intubated and placed on the mechanical ventilator for airway protection. Adequate oxygenation. Chest x-ray is within normal limits. CAT scan of the head and cervical spine was also within normal limits. Hemodynamically stable. Amphetamine use/abuse. No signs of amphetamine toxicity. Chronic anxiety/depression Plan Wean off sedation and check weaning parameters and assess readiness to wean Possible extubation today IV fluids to be continued Lovenox for DVT prophylaxis IV Protonix Possible extubation today Psych evaluation once liberated from the mechanical ventilator Will continue to follow Evaluation was done and 33 minutes. Time with Patient: Greater than 30
[2025-02-23 18:20] LABS: Glucose,Whole Blood 80 mg/dL (70-110)
[2025-02-24 05:25] LABS: Glucose,Whole Blood 105 mg/dL (70-110)
[2025-02-24 06:19] LABS: Basophils % (A) 1 %; Eosinophils # (A) 0.3 k/uL (0-0.7); Eosinophils % (A) 4 %; HCT 36.9 % (39.0-53.0); Lymphocytes # (A) 1.4 k/uL (1.0-4.8); Lymphocytes % (A) 21 %; MCH 28.7 pg (25.0-35.0); MCHC 32.6 g/dL (31.0-37.0); Mean Platelet Volume 7.4; Monocytes # (A) 0.5 k/uL (0-1.0); Monocytes % (A) 8 %; Neutrophils # (A) 4.2 k/uL (1.3-7.7); Neutrophils % (A) 65 %; Platelet Count 251 k/uL (150-450); RBC 4.19 m/uL (4.30-5.90); RDW 13.6 % (11.5-15.5); WBC 6.5 k/uL (3.8-10.6)
[2025-02-24 06:32] LABS: African American GFR (CKD) >90 (>60 ml/min/1.73 sqM); Anion Gap 6 mmol/L; Blood Urea Nitrogen 8 mg/dL (9-20); Calcium 8.3 mg/dL (8.4-10.2); Carbon Dioxide 23 mmol/L (22-30); Chloride 108 mmol/L (98-107); Glucose 130 mg/dL (74-99); Non-African American GFR(CKD) >90 (>60 ml/min/1.73 sqM); Potassium 3.7 mmol/L (3.5-5.1); Sodium 137 mmol/L (137-145)
[2025-02-24] MEDS: POTASSIUM CHLORIDE ER 20 MEQ TAB.ER PO SCH (06:54)
--- NOTE | 2025-02-24 10:43 | P.PN ---
Subjective Progress Note Date: 02/24/25 39 year old M presents to the ED via EMS after an apparent drug overdose at [facility]. In the ED he underwent extensive evaluation. BP 156/102, RR 20, HR 54, 95% on RA, Tlow 90.5F. CBC, Coag panel, CMP significant for glu 107. Trop < 0.012. ABG pH 7.4, pCO2 38. UDS + amphetamines, methamphetamine, benzodiazepine. Serum ETOH neg. EKG sinus bradycardia with ST depression. CXR and CT brain/C- spine no acute process. He was intubated in the ED to protect his airway. Extubated on 02/23. Petitioned by his pending Psychiatry consultation. 02/24 Patient was seen and examined. Sitter at bedside. Extubated yesterday. Sleeping comfortably. CBC, CMP significant for RBC 4.19, Hg 12, Hct 36.9, Cl 108, BUN 8, glu 130, Ca 8.3. Sputum Cx rare PMN, few epithelial cells, many gram + cocci, few gram + bacilli. He is petitioned by his for expressing suicidal tendencies. General: toxic, no distress, appears older than stated age Derm: warm, dry Head: atraumatic, normocephalic, symmetric Mouth: no lip lesion, mucus membranes moist Cardiovascular: Good distal perfusion in all 4 extremities Lungs: Breathing comfortably, no accessory muscle use Ext: no gross muscle atrophy, no edema, no contractures Psych: Alert and oriented. Based on my assessment of this patient, this patient meets a high complexity level of care. Acute toxic encephalopathy secondary to acute drug overdose: Reported OD on GHB. UDS + Amphetamine, Methamphetamine, Benzodiazepine. Acetaminophen and Salicylate levels negative. Ativan 1 mg IV Q6H PRN anxiety. Suicidal ideation: Petitioned by his . Cert filled out. Suicidal precautions ordered. 1:1 sitter ordered. Psychiatry consulted. Normocytic anemia which is likely dilutional. Resolved: Acute hypoxic respiratory failure. CODE STATUS: FULL CODE. DVT Prophylaxis: Lovenox SQ. GI Prophylaxis: Protonix IV. Designated medical POA if patient is not able to make medical decisions for themselves: I have reviewed the following agricultural consultant notes: Pulmonary. I have reviewed the results of the following tests: CBC, CMP, Sputum Cx. I have ordered the following tests: I have discussed the care of this patient with the following independent his rand: TAMAR. I have independently interpreted the following test below: I have discussed the management of this patient with the following physician: Objective - Vital Signs Vital signs: Vital Signs Temp 98.3 F 02/24/25 00:00 Pulse 78 02/24/25 07:00 Resp 18 02/24/25 07:00 BP 109/65 02/24/25 07:00 Pulse Ox 96 02/24/25 07:00 FiO2 40 02/23/25 11:32 Intake & Output 02/23/25 02/24/25 02/24/25 18:59 06:59 18:59 Intake Total 7795.685 3461 Output Total 190 650 Balance 8095.148 2658 Weight 70.6 kg Intake: IV 1200 1300 Sodium Chloride 0.9% 1, 1200 1300 000 ml @ 100 mls/hr IV . Q10H [facility] Rx#:[id number] Intake, IV Titration 203.084 Amount fentaNYL (PF). 1,000 mcg 100.000 In Sodium Chloride 0.9% 80 ml @ 0.5 MCG/KG/HR 3. 629 mls/hr IV .Q24H [facility]I Rx#:[id number] propofoL 1,000 mg In 103.084 Empty Bag 1 bag @ 15 MCG/ KG/MIN 6.532 mls/hr IV . [id number] [facility]I Rx#:[id number] Oral 700 Output: Urine 190 650 Other: Voiding Method Indwelling Catheter Indwelling Catheter # Voids 1 - Labs CBC & Chem 7: 02/24/25 05:55 02/24/25 05:55 Labs: Abnormal Lab Results - Last 24 Hours (Table) 02/24/25 02/24/25 Range/Units 05:55 05:55 RBC 4.19 L (4.30-5.90) m/uL Hgb 12.0 L (13.0-17.5) gm/dL Hct 36.9 L (39.0-53.0) % Chloride 108 H (98-107) mmol/L BUN 8 L (9-20) mg/dL Glucose 130 H (74-99) mg/dL Calcium 8.3 L (8.4-10.2) mg/dL Microbiology - Last 24 Hours (Table) 02/22/25 15:12 Gram Stain - Preliminary Sputum Sputum Culture - Preliminary
--- NOTE | 2025-02-24 10:50 | P.PN ---
Subjective Progress Note Date: 02/24/25 This is a this is a 39-year-old male patient who presented to the emergency department unresponsive. The patient was found to have a [employer] bathroom. The patient has taken GHB, exact amount is unknown. He had a similar episode few months back. He was completely unresponsive and he was unable to protect his airways. Based on that, the patient was intubated and placed on the mechanical ventilator. At this point, the patient is still in the emergency. He is on propofol running at 35 mcg/kg/min. He is on assist-control mode at rate of 18 tidal volume of 505 to 50% with a PEEP of 5. He is on normal citrate of 100 cc an hour. Hemodynamically stable. Blood gas postintubation showed a pH of 7.4 with a pCO2 of 38 and pO2 more than 420 and this was an FiO2 of 100%. Chest x-ray shows no acute cardiopulmonary process. Tubes are in good location. CAT scan of the head and neck was also done that showed no acute intracranial process, no evidence of any cervical spine fracture. White cell count 8.4 hemoglobin 13.8 platelet count of 302. Normal coagulation profile. Electrolytes are normal. Renal function is normal. Urine drug screen is positive for benzodiazepines, methamphetamine and amphetamine. Alcohol level is negative. Producing adequate amount of urine output. No seizure activity has been noted. He is known to have hypertension. He also has history of anxiety and depression. On 02/23/2025, the patient is being seen for a follow-up. The patient is hemodynamically stable. Remains intubated on mechanical ventilator. This morning, the patient is on propofol running at 50 mcg/kg/min and fentanyl running at 1.5 mcg/kg/min. Remains on a mechanical ventilator on assist-control mode at rate of 18, tidal volume of 500, FiO2 40% with a PEEP of 5. Blood gases from today showed a pH of 7.47 with a pCO2 of 34 and pO2 of 251. Chest x-ray was noted and shows no acute abnormalities. Hemodynamically, the patient is stable. No significant hypotension. Urine output is adequate. No pressors. White cell count of 8.6, hemoglobin is at 12.3 and a platelet count is 291. BUN is 11 with a creatinine of 0.7. Sodium levels at 140 and a potassium level is at 3.4. Remains on Lovenox for DVT prophylaxis. No other significant events overnight. Remains NPO. 02/24/2025, the patient is doing well. The patient was extubated on 02.23. He is resting comfortably in bed. He does have suicidal thoughts and depression. Based on that, the patient was given a center and a psychiatric consultation was also requested. He is on room air oxygen. Hemodynamically stable. No respiratory difficulties. White cell count of 6.5 with a hemoglobin of 12 and a platelet count of 251. Electrolytes are all within normal limits. Remains on Lovenox for DVT prophylaxis. Remains on IV Protonix. No seizure activity. No agitation. Objective - Vital Signs Vital signs: Vital Signs Temp 98.3 F 02/24/25 00:00 Pulse 78 02/24/25 07:00 Resp 18 02/24/25 07:00 BP 109/65 02/24/25 07:00 Pulse Ox 96 02/24/25 07:00 FiO2 40 02/23/25 11:32 Intake & Output 02/23/25 02/24/25 02/24/25 18:59 06:59 18:59 Intake Total 4647.752 9911 Output Total 190 650 Balance 7579.831 1626 Weight 70.6 kg Intake: IV 1200 1300 Sodium Chloride 0.9% 1, 1200 1300 000 ml @ 100 mls/hr IV . Q10H [facility]I Rx#:[id number] Intake, IV Titration 203.084 Amount fentaNYL (PF). 1,000 mcg 100.000 In Sodium Chloride 0.9% 80 ml @ 0.5 MCG/KG/HR 3. 629 mls/hr IV .Q24H [facility]I Rx#:[id number] propofoL 1,000 mg In 103.084 Empty Bag 1 bag @ 15 MCG/ KG/MIN 6.532 mls/hr IV . [id number] [facility]I Rx#:[id number] Oral 700 Output: Urine 190 650 Other: Voiding Method Indwelling Catheter Indwelling Catheter # Voids 1 - Exam The patient appeared well nourished and normally developed. Vital signs as documented., Extubated and the patient is currently on room air oxygen Head exam is unremarkable. No scleral icterus or corneal arcus noted. Neck is without jugular venous distension, thyromegaly, or carotid bruits. Carotid upstrokes are brisk bilaterally. Lungs are clear to auscultation and percussion. Cardiac exam reveals the PMI to be normally sized and situated. Rhythm is regular. First and second heart sounds normal. No murmurs, rubs or gallops. Abdominal exam reveals normal bowel sounds, no masses, no organomegaly and no aortic enlargement. Extremities are nonedematous and both femoral and pedal pulses are normal. Examination of the skin revealed no evidence of significant rashes, suspicious appearing nevi or other concerning lesions. Neurologically, the patient is awake and alert and the patient does not have any focal neurological deficit. Cranial nerves are essentially intact. - Labs CBC & Chem 7: 02/24/25 05:55 02/24/25 05:55 Labs: Abnormal Lab Results - Last 24 Hours (Table) 02/24/25 02/24/25 Range/Units 05:55 05:55 RBC 4.19 L (4.30-5.90) m/uL Hgb 12.0 L (13.0-17.5) gm/dL Hct 36.9 L (39.0-53.0) % Chloride 108 H (98-107) mmol/L BUN 8 L (9-20) mg/dL Glucose 130 H (74-99) mg/dL Calcium 8.3 L (8.4-10.2) mg/dL Microbiology - Last 24 Hours (Table) 02/22/25 15:12 Gram Stain - Preliminary Sputum Sputum Culture - Preliminary Assessment and Plan Plan: Acute drug overdose, likely GHB. The patient was completely unresponsive at time of ED admission and the patient was unable to protect airways. Patient was intubated and placed on the mechanical ventilator for airway protection. Adequate oxygenation. Chest x-ray is within normal limits. CAT scan of the head and cervical spine was also within normal limits. Hemodynamically stable. Extubated on 02/23/2025 and the patient is currently on room air oxygen Acute hypoxic/hypercapnic respiratory failure due to drug overdose, requiring intubation and subsequent extubation on 02/23/2025 Amphetamine use/abuse. No signs of amphetamine toxicity. Chronic anxiety/depression Suicidal ideations Plan Patient currently on room air oxygen IV fluids to KVO and the patient is tolerating diet Lovenox for DVT prophylaxis IV Protonix Sitter at the bedside and suicide precautions Psych evaluation will be needed Will continue to follow
--- NOTE | 2025-02-24 13:41 | P.CN ---
Psychiatric Consult - . Consult date: 02/24/25 Consult:: 02/24/25 12:41 IDENTIFYING DATA: Patient is a 39 years old male , he is he lives with his and 4 kids, he lives in a house he is unemployed Reason for consultation: "overdose, altered mental status" HPI: Patient presented to the hospital initially on 02/22 after being found unresponsive in a [employer]quin's bathroom. Patiently supposedly overdosed on GHB. Patient was brought to the hospital he was intubated for respiratory failure, he was extubated on 02/23. Patient was endorsing suicidal ideations to staff. He was positive for amphetamines methamphetamine and benzodiazepines on his urine drug screen. Patient was fairly sleepy during interaction, he claims that he has been feeling depressed. He knew his correct name age date and knew where he was. He states that he made a "mistake" and he claims that he cannot remember how much of the drug he took. He was fairly evasive and guarded about whether he was a suicide attempt. He claims that he "hit my head" and he does not remember much after that. He was fairly evasive and guarded during conversation. Mumbling at times. He claims that he has been having suicidal thoughts, no specific plan, denies any homicidal ideations. Denies any auditory or visual hallucinations. Denying any paranoia or delusions at this time. He claims that he is been noncompliant with his psychiatric medications. Has not been going to [facility]. Claims that he has been sleeping "too much" and his appetite is poor. He claims that he also smokes vape nicotine products. PAST PSYCHIATRIC HISTORY: - Inpatient Hospitalizations: Patient was last psychiatrically hospitalized on the mental health unit on 12/15 - Outpatient Care: [facility] however has not been going consistently - Current Psychotropics: Was recently started on Cymbalta, Zoloft, Seroquel and Vistaril as needed. He has not been compliant with medication - Prior Psychotropics/Therapy: None reported - Prior Psychiatric dx: anxiety, depression, substance use - Suicidal Attempts: He reports having had a recent suicide attempt in October 2024, he took over 50 ibuprofen in an effort to end his life. Reported that he did not seek medical or psychiatric attention at that time - Self Harm: pt denied Past Medical History: Hypertension Past Surgical History: No Surgical Hx Reported Smoking Status: Vaper Past Alcohol Use History: None Reported, Occasional Past Drug Use History: Marijuana ALLERGIES: as per EMR CHEMICAL DEPENDENCY HISTORY: as per HPI FAMILY PSYCHIATRIC/SUBSTANCE USE HISTORY: denied any family hx of mental illness, or suicide, reported that most of his family struggled with alcohol use. SOCIAL HISTORY: Patient was born and raised in [place], moved to [place] in 6th grade, came by himself, did not met his father, came to live with grandmother. for 10 yrs, together for 24 yrs, have 4 children, 2 15 yo twins, 6, and 7 yo. 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 He is , lives with and 4 children. 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 Finished HS. Denied any legal issues. MENTAL STATUS EXAM: General Appearance: Patient appears to be balding, somewhat tired, older than stated age is evasive and fairly uncooperative. Patient appears to have poor hygiene and grooming wearing hospital gown with poor eye contact. Behavior: Patient is calmly seated without any agitated behavior. Fairly tired, uncooperative Speech: Patient's speech is fluent and nonpressured. Mumbling at times Mood/Affect: Patient reports their mood is "depressed and anxious", affect is flat, congruent and constricted Suicidality/Homicidality: Patient denies having homicidal ideation, intent, or plan at this moment. He does admit to having suicidal ideations, no specific plan Perceptions: Patient denies any visual hallucinations and denies any auditory hallucinations Though content/process: There is no evidence of any delusional thought content and thought process is linear and goal-directed. Patient was mumbling at times, rationalizing, minimizing drug use and need for treatment Memory and concentration: AOX3, grossly intact for the purposes of this session. Judgment and insight: Poor/impulsive IMPRESSIONS: Major depressive disorder, recurrent, severe Overdose of recreational drugs Generalized anxiety disorder Nicotine dependence PLAN: -At this time patient DOES meet criteria for inpatient psychiatric admission. -Would recommend the following medication changes/additions: Can continue with current treatment, once patient is medically cleared and transferred to the mental health unit we can resume patient back on psychotropic medications. -Continue 1:1 sitter for safety until patient is safely transferred to the mental health unit -Cannot leave AMA at this time. Patient will need a petition and certification if attempting to leave AMA. -Business Support Associate spoke with patient about substance abuse and the harmful effects on medical and mental health, patient verbally understood and agreed. -When medically stable, patient is eligible for transfer to a psych bed when available. -Communicated plan to patient's nurse -Psychiatry will sign off at this time -Please contact with any questions. 02/24/25 13:12 02/24/25 13:35
[2025-02-24 13:43] VITALS: BP 105/64; PULSE 85; RESP 12; TEMP 98
--- NOTE | 2025-02-24 14:46 | P.DS ---
Providers Date of admission: 02/22/25 13:51 Expected date of discharge: 02/24/25 Attending physician: Gus Oropeza Consults: 02/22/25 13:33 Consult Physician Routine Consulting Provider: Mikayla Conway Consult Reason/Comments: Intubated Do you want consulting provider notified?: Yes 02/23/25 14:49 Consult Physician Stat Consulting Provider: Emmanuel iJm Consult Reason/Comments: overdose, altered mental status Do you want consulting provider notified?: Yes Primary care physician: Stated None Hospital Course: 39 year old M presents to the ED via EMS after an apparent drug overdose at [facility]. In the ED he underwent extensive evaluation. BP 156/102, RR 20, HR 54, 95% on RA, Tlow 90.5F. CBC, Coag panel, CMP significant for glu 107. Trop < 0.012. ABG pH 7.4, pCO2 38. UDS + amphetamines, methamphetamine, benzodiazepine. Serum ETOH neg. EKG sinus bradycardia with ST depression. CXR and CT brain/C- spine no acute process. He was intubated in the ED to protect his airway. Extubated on 02/23. Petitioned by his pending Psychiatry consultation. 02/24 Patient was seen and examined. Sitter at bedside. Extubated yesterday. Sleeping comfortably. CBC, CMP significant for RBC 4.19, Hg 12, Hct 36.9, Cl 108, BUN 8, glu 130, Ca 8.3. Sputum Cx rare PMN, few epithelial cells, many gram + cocci, few gram + bacilli. He is petitioned by his for expressing suicid al tendencies. Psychiatry consulted, recommending inpatient psych. Patient is medically stable. General: toxic, no distress, appears older than stated age Derm: warm, dry Head: atraumatic, normocephalic, symmetric Mouth: no lip lesion, mucus membranes moist Cardiovascular: Good distal perfusion in all 4 extremities Lungs: Breathing comfortably, no accessory muscle use Ext: no gross muscle atrophy, no edema, no contractures Psych: Alert and oriented. Discharge Diagnosis: Acute toxic encephalopathy secondary to acute drug overdose Suicidal ideation Normocytic anemia which is likely dilutional Resolved: Acute hypoxic respiratory failure This complex discharge took 35 minutes to complete. Patient Condition at Discharge: Stable Plan - Discharge Summary Discharge Rx Participant: Yes New Discharge Prescriptions: No Action No Known Home Medications Discharge Medication List No Known Home Medications 01/15/25 [History] Follow up Appointment(s)/Referral(s): None,Stated [Primary Care Provider] - 1-2 days Discharge Disposition: TRANSFER TO PSYCH HOSP/UNIT
== END 2025-02-24 18:51 | DRG 133 ==
LOC: EC 11:40 → 2SICU 13:51
PROVIDERS: ADMIT Student in an Organized Health Care Education/Training Program; ATTEND Student in an Organized Health Care Education/Training Program
PROC: 0BH18EZ Insertion of Endotracheal Airway into Trachea, Via Natural or Artificial Opening Endoscopic (ICD-10-PCS; principal; 2025-02-22)
PROC: 5A1935Z Respiratory Ventilation, Less than 24 Consecutive Hours (ICD-10-PCS; 2025-02-22)
DX: J96.01 Acute respiratory failure with hypoxia (principal); G92.8 Other toxic encephalopathy; F33.2 Major depressive disorder, recurrent severe without psychotic features; R45.851 Suicidal ideations; I10 Essential (primary) hypertension; T50.901A Poisoning by unspecified drugs, medicaments and biological substances, accidental (unintentional), initial encounter; D64.89 Other specified anemias; F17.290 Nicotine dependence, other tobacco product, uncomplicated; F41.1 Generalized anxiety disorder; Z91.148 Patient's other noncompliance with medication regimen for other reason; Z91.198 Patient's noncompliance with other medical treatment and regimen for other reason; Z91.51 Personal history of suicidal behavior; Z56.0 Unemployment, unspecified
CPT/HCPCS: 31500; 36415; 36600; 70450; 71045; 72125; 80048; 80053; 80143; 80179; 80306; 80320; 82805; 84132; 84484; 85025; 85610; 85730; 87070; 87205; 87635; 93005; 94002; 94003; 96374; 96375; 99291

== ENCOUNTER 2025-02-24 17:15 | Inpatient (IN) | payer MEDICAID, OTHER ==
[2025-02-24] MEDS ORDERED: MAGNESIUM HYDROXIDE 2,400 MG/30 ML CUP PO PRN (18:09)
[2025-02-24] MEDS ORDERED: LORazepam 2 MG/ML INJ IM PRN (18:09)
[2025-02-24] MEDS ORDERED: MAG HYDROX/AL HYDROX/SIMETH 355 ML BOTTLE PO PRN (18:09)
[2025-02-24] MEDS ORDERED: HALOPERIDOL LACTATE 5 MG/ML 1 ML VIAL IM PRN (18:09)
[2025-02-24] MEDS ORDERED: traZODone HCL 100 MG TAB PO PRN (18:09)
[2025-02-24] MEDS ORDERED: ACETAMINOPHEN TAB 325 MG TAB PO PRN (18:09)
[2025-02-24] MEDS ORDERED: haloperidoL 5 MG TAB PO PRN (18:09)
[2025-02-24] MEDS: NICOTINE 14MG/24HR PATCH TRANSDERM SCH (18:32)
[2025-02-25] MEDS: IBUPROFEN 600 MG TAB PO PRN (03:56)
--- NOTE | 2025-02-25 05:38 | P.HPMEDMHU ---
History of Present Illness H&P Date: 02/24/25 Chief Complaint: Medical history The patient is a 39-year-old male with a history of depression who hospitalized on 02/22 for drug overdose at [facility]. The patient drugs was positive for methamphetamines, benzodiazepines he stated that he was noncompliant with his psych medications. The patient was intubated for airway protection and extubated on 02/23. He was discharged from the acute hospitalization and is currently hospitalized for his psychiatric care. The patient denies any complaints at this time Review of Systems Denies any concerns other than stated above Past Medical History Past Medical History: No Reported History, Hypertension Additional Past Medical History / Comment(s): Migraines, syncope History of Any Multi-Drug Resistant Organisms: None Reported Past Surgical History: No Surgical Hx Reported Additional Past Surgical History / Comment(s): left hip repair Past Anesthesia/Blood Transfusion Reactions: No Reported Reaction Past Psychological History: Anxiety, Depression Smoking Status: Current some day smoker, Vaper Past Alcohol Use History: None Reported, Occasional Additional Past Alcohol Use History / Comment(s): patient has history of alcohol abuse, frequently relapses Past Drug Use History: None Reported, Marijuana Medications and Allergies Home Medications Medication Instructions Recorded Confirmed Type No Known Home Medications 01/15/25 02/24/25 History Allergies Allergy/AdvReac Type Severity Reaction Status Date / Time lisinopril Allergy Unknown - Verified 02/22/25 13:39 see comment Physical Exam Vitals: Vital Signs Temp Pulse BP Pulse Ox 02/24/25 21:00 98.3 F 82 146/80 99 02/24/25 19:20 98.3 F 82 146/80 99 Intake and Output 02/24/25 02/24/25 02/25/25 14:59 22:59 06:59 Other: Weight 70 kg - Constitutional General appearance: average body habitus - Respiratory Respiratory: bilateral: CTA - Cardiovascular Rhythm: regular - Gastrointestinal General gastrointestinal: normal bowel sounds - Integumentary Integumentary: normal - Neurologic Neurologic: CNII-XII intact Limited insight Cranial Nerve Examination - Cranial Nerves Cranial Nerve II- Optic: Intact Cranial Nerve III- Oculomotor: Intact Cranial Nerve IV- Trochlear: Intact Cranial Nerve V- Trigeminal: Intact Cranial Nerve - Abducens: Intact Cranial Nerve VII- Facial: Intact Cranial Nerve VIII- Auditory: Intact Cranial Nerve IX- Glossopharyngeal: Intact Cranial Nerve X- Vagus: Intact Cranial Nerve XI- Accessory: Intact Cranial Nerve XII- Hypoglossal: Intact Assessment and Plan (1) HTN (hypertension) Narrative/Plan: Patient apparently takes lisinopril dose and now will start a low-dose of 10 mg he has had systolic blood pressure in the 140s Current Visit: Yes Status: Acute Code(s): I10 - ESSENTIAL (PRIMARY) HYPERTENSION SNOMED Code(s): 16152624 (2) Major depressive disorder, recurrent episode, severe Narrative/Plan: Continue per primary team, patient was asking for Cymbalta he has not been on it for months. Current Visit: No Status: Acute Priority: High Code(s): F33.2 - MAJOR DEPRESSV DISORDER, RECURRENT SEVERE W/O PSYCH FEATURES SNOMED Code(s): 682994428127 (3) Overdose Narrative/Plan: Patient was counseled Current Visit: No Status: Acute Code(s): T50.901A - POISONING BY UNSP DRUG/MEDS/BIOL SUBST, ACCIDENTAL, INIT SNOMED Code(s): 3175567134
[2025-02-25] MEDS: amLODIPine 5 MG TAB PO SCH (09:51)
--- NOTE | 2025-02-25 12:27 | P.HP ---
Psychiatric H&P - . H&P Date: 02/25/25 History & Physical: Allergies Allergy/AdvReac Type Severity Reaction Status Date / Time lisinopril Allergy Unknown - Verified 02/22/25 13:39 see comment Vital Signs Temp 98.4 F 02/25/25 09:00 Pulse 93 02/25/25 09:00 Resp 16 02/25/25 09:00 BP 118/76 02/25/25 09:00 Pulse Ox 99 02/25/25 09:00 FiO2 Intake & Output 02/24/25 02/25/25 02/25/25 18:59 06:59 18:59 Weight 70 kg 70 kg 02/25/25 12:09 IDENTIFYING DATA: Patient is a 39 years old male , he is he lives with his and 4 kids, he lives in a house he is unemployed HPI: Patient was seen initially by internal communications writer for psychiatric consultation while in the ICU on 02/24 and according to consultation note "patient presented to the hospital initially on 02/22 after being found unresponsive in a [facility] bathroom. Patiently supposedly overdosed on GHB. Patient was brought to the hospital he was intubated for respiratory failure, he was extubated on 02/23. Patient was endorsing suicidal ideations to staff. He was positive for amphetamines methamphetamine and benzodiazepines on his urine drug screen. Patient was fairly sleepy during interaction, he claims that he has been feeling depressed. He knew his correct name age date and knew where he was. He states that he made a "mistake" and he claims that he cannot remember how much of the drug he took. He was fairly evasive and guarded about whether he was a suicide attempt. He claims that he "hit my head" and he does not remember much after that. He was fairly evasive and guarded during conversation. Mumbling at times. He claims that he has been having suicidal thoughts, no specific plan, denies any homicidal ideations. Denies any auditory or visual hallucinations. Denying any paranoia or delusions at this time. He claims that he is been noncompliant with his psychiatric medications. Has not been going to [facility]. Claims that he has been sleeping "too much" and his appetite is poor. He claims that he also smokes vape nicotine products." Patient was seen today laying in bed agreeable to speak to internal communications writer. He continues to be disheveled in appearance. He claims that he is feeling "aggravated" today. Claims that he is also having depression and anxiety. He was upset that he has not been started on his Cymbalta at this time. He claims that he needs to be on it to help control his depression and anxiety. He states that previously he was on Seroquel and states that it was too sedating for him and stopped taking it. He claims that he has been off his medications for a few days now. Claims that his sleep has been on and off appetite has been fair. Claims that his is concerned about him. He is denying any suicidal homicidal ideations intent or plan at this time denying any auditory or visual hallucinations. PAST PSYCHIATRIC HISTORY: - Inpatient Hospitalizations: Patient was last psychiatrically hospitalized on the mental health unit on 12/15 - Outpatient Care: [facility] however has not been going consistently - Current Psychotropics: Was recently started on Cymbalta, Zoloft, Seroquel and Vistaril as needed. He has not been compliant with medication - Prior Psychotropics/Therapy: None reported - Prior Psychiatric dx: anxiety, depression, substance use - Suicidal Attempts: He reports having had a recent suicide attempt in October 2024, he took over 50 ibuprofen in an effort to end his life. Reported that he did not seek medical or psychiatric attention at that time - Self Harm: pt denied Past Medical History: Hypertension Past Surgical History: No Surgical Hx Reported Smoking Status: Vaper Past Alcohol Use History: None Reported, Occasional Past Drug Use History: Marijuana ALLERGIES: as per EMR CHEMICAL DEPENDENCY HISTORY: as per HPI FAMILY PSYCHIATRIC/SUBSTANCE USE HISTORY: denied any family hx of mental illness, or suicide, reported that most of his family struggled with alcohol us e. SOCIAL HISTORY: Patient was born and raised in [place], moved to [place] in 6th grade, came by himself, did not met his father, came to live with grandmother. for 10 yrs, together for 24 yrs, have 4 children, 2 15 yo twins, 6, and 7 yo. 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 He is , lives with and 4 children. 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 Finished HS. Denied any legal issues. MENTAL STATUS EXAM: General Appearance: Patient appears to be balding, somewhat tired, older than stated age is evasive at times during the interview, attempts to cooperate. Patient appears to have poor hygiene and grooming wearing hospital gown with poor eye contact. Behavior: Patient is calmly seated without any agitated behavior. Fairly tired, attempts to cooperate Speech: Patient's speech is fluent and nonpressured. Mood/Affect: Patient reports their mood is "depressed and anxious and aggravated", affect is flat, congruent and constricted Suicidality/Homicidality: Patient denies having homicidal ideation, intent, or plan at this moment. He denies any suicidal ideations, no specific plan Perceptions: Patient denies any visual hallucinations and denies any auditory hallucinations Though content/process: There is no evidence of any delusional thought content and thought process is linear and goal-directed. Patient was mumbling at times, rationalizing, focused on discharge Memory and concentration: AOX3, grossly intact for the purposes of this session. Judgment and insight: Poor, improving mildly STRENGTHS/WEAKNESSES: strength is that patient is resilient. Weakness is that patient has poor judgment and is impulsive INTELLECT: Average IMPRESSIONS: Major depressive disorder, recurrent, severe Overdose of recreational drugs Generalized anxiety disorder Nicotine dependence PLAN: -Patient is admitted under voluntary status to MHU for stabilization of psychiatric symptoms and safety. Patient has signed adult voluntary form and has signed medication consent and is placed in patient's chart. -Medications : Cymbalta 30 mg daily for mood/anxiety, trazodone 50 mg nightly for mood/insomnia. -Ativan and Haldol PRN for agitation/aggression -Patient was counselled on substance abuse and desired to cut back on use. Patient states they do not want rehab and wish to cut back subtance use on their own -Patient was informed of the risks, benefits and side effects of the medications and patient verbally consented to taking the medications. Patient signed med consent form and was placed in chart. Patient was offered medication information and accepted it -Internal Medicine consult to perform medical evaluation and physical. -NRT -nicotine patch -SW on board for discharge planning. Encourage patient to participate in groups to work on coping skills. 02/25/25 12:22 02/25/25 12:23
[2025-02-25] MEDS: DULoxetine HCL 30 MG CAPSULE.DR PO SCH (12:34)
[2025-02-25] MEDS: traZODone HCL 50 MG TAB PO SCH (21:38)
--- NOTE | 2025-02-26 12:27 | P.PN ---
Progress Note - Text Progress Note Date: 02/26/25 Interval History: Patient was seen today for psychiatric follow up. Patient was laying in his b ed, agreeable to speak to advertising copywriter. Appears to have an improvement in his affect today. Claims that he spoke to his which went well. He was fairly focused on discharge. Continues to minimize to the suicide attempt. Claims that he has been mainly keeping himself on the unit, not going to many groups was encouraged to do so today. Has been showering, hygiene and grooming improving. Claims that he slept fairly last night, wants to take his medications all at the same time for simplicity. At this time he is denying any suicidal homicidal ideations intent or plan denying any auditory or visual hallucinations. MENTAL STATUS EXAM: General Appearance: Patient appears to be balding, somewhat tired, older than stated age attempts to cooperate. Patient appears to have improving hygiene and grooming wearing hospital gown with improving eye contact. Behavior: Patient is calmly seated without any agitated behavior. attempts to cooperate Speech: Patient's speech is fluent and nonpressured. Mood/Affect: Patient reports their mood is "a bit better", affect is flat, congruent and constricted, improving mildly Suicidality/Homicidality: Patient denies having homicidal ideation, intent, or plan at this moment. He denies any suicidal ideations, no specific plan Perceptions: Patient denies any visual hallucinations and denies any auditory hallucinations Though content/process: There is no evidence of any delusional thought content and thought process is linear and goal-directed. focused on discharge Memory and concentration: AOX3, grossly intact for the purposes of this session. Judgment and insight: Poor, improving mildly IMPRESSIONS: Major depressive disorder, recurrent, severe Overdose of recreational drugs Generalized anxiety disorder Nicotine dependence PLAN: -Patient is admitted under voluntary status to MHU for stabilization of psychiatric symptoms and safety. Patient has signed adult voluntary form and has signed medication consent and is placed in patient's chart. -Medications : Increase and change to nightly dosing Cymbalta 60 mg nightly for mood/anxiety, trazodone 50 mg nightly for mood/insomnia. -Ativan and Haldol PRN for agitation/aggression -NRT -nicotine patch -SW on board for discharge planning. Encourage patient to participate in groups to work on coping skills. Likely discharge versus Tuesday if patient is improving will be going back home, claims that he does not want to go to rehab.
[2025-02-26] MEDS: LORazepam 1 MG TAB PO PRN (14:26)
[2025-02-26] MEDS: AMMONIUM LACTATE 12% LOTION 225 GM BTL TOPICAL SCH (22:32)
--- NOTE | 2025-02-27 14:38 | P.PN ---
Progress Note - Text Progress Note Date: 02/27/25 Interval History: Patient was seen today for psychiatric follow up. Patient was laying in his b ed. He claims that he was up going to groups and was in activities earlier. States that he is still try to get a hold of his , claims that she may come see him today. He was focused on discharge today, we spoke about possible discharge tomorrow which she is okay with. Continues to state that he is not interested in going to rehab. He was asking about a medication to help him with "severe anxiety" when he needs it. Claims that he is sleeping fairly, denies any depression or anxiety at this time. hygiene and grooming improving. Claims that he slept fairly last night. At this time he is denying any suicidal homicidal ideations intent or plan denying any auditory or visual hallucinations. MENTAL STATUS EXAM: General Appearance: Patient appears to be balding, somewhat tired, older than stated age attempts to cooperate. Patient appears to have improving hygiene and grooming wearing hospital gown with improving eye contact. Behavior: Patient is calmly seated without any agitated behavior. attempts to cooperate Speech: Patient's speech is fluent and nonpressured. Mood/Affect: Patient reports their mood is "better", affect is flat, congruent and constricted, improving mildly Suicidality/Homicidality: Patient denies having homicidal ideation, intent, or plan at this moment. He denies any suicidal ideations, no specific plan Perceptions: Patient denies any visual hallucinations and denies any auditory hallucinations Though content/process: There is no evidence of any delusional thought content and thought process is linear and goal-directed. focused on discharge Memory and concentration: AOX3, grossly intact for the purposes of this session. Judgment and insight: improving mildly IMPRESSIONS: Major depressive disorder, recurrent, severe Overdose of recreational drugs Generalized anxiety disorder Nicotine dependence PLAN: -Patient is admitted under voluntary status to MHU for stabilization of psychiatric symptoms and safety. Patient has signed adult voluntary form and has signed medication consent and is placed in patient's chart. -Medications : Increase and change to nightly dosing Cymbalta 60 mg nightly for mood/anxiety, trazodone 50 mg nightly for mood/insomnia. -Ativan and Haldol PRN for agitation/aggression -NRT -nicotine patch -SW on board for discharge planning. Encourage patient to participate in groups to work on coping skills. Likely discharge tomorrow if patient is improving will be going back home. claims that he does not want to go to rehab.
[2025-02-27] MEDS: DULoxetine HCL 30 MG CAPSULE.DR PO ONE (21:41)
[2025-02-27 21:59] VITALS: RESP 18
[2025-02-28 08:59] VITALS: BP 117/81; PULSE 100; TEMP 97.9
--- NOTE | 2025-02-28 11:21 | P.DS ---
Providers Date of admission: 02/24/25 17:15 Expected date of discharge: 02/28/25 Attending physician: Emmanuel Jim MD Consults: 02/24/25 18:09 Consult Physician Routine Consulting Provider: Tawanna Fairbanks Consult Reason/Comments: History and Physical, New Admission Do you want consulting provider notified?: Yes Primary care physician: Stated None - Discharge Diagnosis(es) (1) Major depressive disorder, recurrent severe without psychotic features Current Visit: Yes Status: Acute Priority: High (2) Drug overdose Current Visit: Yes Status: Acute Priority: High (3) Generalized anxiety disorder Current Visit: Yes Status: Acute Priority: Medium (4) Nicotine dependence Current Visit: Yes Status: Acute Priority: Low Hospital Course: Admission HPI: Admission note was completed by underwriter mortgage loan "patient is a 39 years old male , he is he lives with his and 4 kids, he lives in a house he is unemployed. Patient was seen initially by underwriter mortgage loan for psychiatric consultation while in the ICU on 02/24 and according to consultation note "patient presented to the hospital initially on 02/22 after being found unresponsive in a [facility] bathroom. Patiently supposedly overdosed on GHB. Patient was brought to the hospital he was intubated for respiratory failure, he was extubated on 02/23. Patient was endorsing suicidal ideations to staff. He was positive for amphetamines methamphetamine and benzodiazepines on his urine drug screen. Patient was fairly sleepy during interaction, he claims that he has been feeling depressed. He knew his correct name age date and knew where he was. He states that he made a "mistake" and he claims that he cannot remember how much of the drug he took. He was fairly evasive and guarded about whether he was a suicide attempt. He claims that he "hit my head" and he does not remember much after that. He was fairly evasive and guarded during conversation. Mumbling at times. He claims that he has been having suicidal th oughts, no specific plan, denies any homicidal ideations. Denies any auditory or visual hallucinations. Denying any paranoia or delusions at this time. He claims that he is been noncompliant with his psychiatric medications. Has not been going to [facility]. Claims that he has been sleeping "too much" and his appetite is poor. He claims that he also smokes vape nicotine products." Patient was seen today laying in bed agreeable to speak to underwriter mortgage loan. He continues to be disheveled in appearance. He claims that he is feeling "aggravated" today. Claims that he is also having depression and anxiety. He was upset that he has not been started on his Cymbalta at this time. He claims that he needs to be on it to help control his depression and anxiety. He states that previously he was on Seroquel and states that it was too sedating for him and stopped taking it. He claims that he has been off his medications for a few days now. Claims that his sleep has been on and off appetite has been fair. Claims that his is concerned about him. He is denying any suicidal homicidal ideations intent or plan at this time denying any auditory or visual hallucinations." Hospital course: Upon admission to the unit patient was directable and agreeable to commence treatment and signed adult voluntary form. Patient was initially depressed, withdrawn however with time and treatment patient got along well with other patients on the unit and followed unit protocol. Patient was compliant with the medications and denied any side effects throughout hospital course. Patient was started on Cymbalta 60 mg daily for mood/anxiety, trazodone 50 mg nightly for insomnia/mood. Patient spoke of his stressors however did not participate much in group/activity therapy and mainly kept to themselves during hospitalization. Patient was also seen by medical team for history and physical exam. Throughout the course of the hospitalization patient gradually improved with regards to mood, anxiety, sleep and returned back to their baseline level of functioning. On the day of discharge patient denied any suicidal or homicidal ideations intent or plan denied any auditory or visual hallucinations. Patient endorsed wanting to live for their health and family. The patient denied any access to guns or weapons. Patient denied any paranoia and did not endorse any delusions. Patient does have a significant history of substance abuse and was counseled on abstaining from all substances including alcohol and marijuana. Patient was offered however declined inpatient substance-abuse rehab. Patient elected to do outpatient substance use treatment program through their outpatient provider. Patient was also counseled on the medications and need for regular compliance and was encouraged to follow-up with their outpatient appointment for mental health and also for primary care. Prior to discharge a family meeting will be arranged by social services technician to answer any questions and ensure safety upon di toni incuding making sure that guns/weapons are either removed from the home or locked away. Mental status exam: General Appearance: Patient appears to be thin, balding, stated age is alert, pleasant, and cooperative. Patient is in no acute distress and has improved hygiene and grooming Behavior: Patient is calmly seated without any agitated behavior. Speech: Patient's speech is fluent and nonpressured. Mood/Affect: Patient reports their mood is "better", affect is congruent Suicidality/Homicidality: Patient denies having any suicidal or homicidal ideation intent or plan. Perceptions: Patient denies any auditory or visual hallucinations. Though content/process: There is no evidence of any delusional thought content and thought process is linear and goal-directed. More future oriented Memory and concentration: AOX3, grossly intact for the purposes of this session. Can spell "WORLD" backwards correctly. Judgment and insight: Chronically poor, however has improved with guarded prognosis Impression: major depressive disorder recurrent, severe drug overdose generalized anxiety disorder Nicotine dependence Plan: -Continue with discharge today as patient has improved and stabilized psychiatrically and is not currently an imminent threat to themself and/or others. Patient will remain at chronically elevated risk for harm to self and/or others due to their impulsivity and substance abuse. -Continue medications: Cymbalta 60 mg nightly for mood/anxiety, trazodone 50 mg nightly for mood/insomnia -Patient was counseled on the need for medication compliance and appropriate follow-up at mental health and also primary care for medical issues. Patient verbalized understanding and agreed. -Social work to help coordinate patients discharge today. also to ensure safe home environment that guns/weapons are either removed from the home or locked away. Social work also to arrange for patients follow up appointments with [facility] for psychiatric care along with follow up with primary care provider. -Patient counseled on abstaining from recreational drugs and marijuana and alcohol. Was informed/educated on the adverse effects on their physical and mental health. Patient verbally agreed and understood. Patient was offered substance abuse treatment however declined at this time. -Patient was instructed to return to the hospital or seek immediate medical care if their psychiatric or medical symptoms do worsen or reoccur. Allergies Allergy/AdvReac Type Severity Reaction Status Date / Time lisinopril Allergy Unknown - Verified 02/22/25 13:39 see comment Vital Signs Temp 97.9 F 02/28/25 08:56 Pulse 100 02/28/25 08:56 Resp 18 02/28/25 08:56 BP 117/81 02/28/25 08:56 Pulse Ox 100 02/28/25 08:56 FiO2 Patient Condition at Discharge: Stable Plan - Discharge Summary Discharge Rx Participant: Yes New Discharge Prescriptions: New Ammonium Lactate Lotion [Lac-Hydrin 12% Lotion] 1 applic TOPICAL BID 30 Days #1 each Ibuprofen [Motrin] 600 mg PO Q6HR PRN tab PRN Reason: Moderate Pain (Scale 4 To 6) hydrOXYzine pamoate [Vistaril] 50 mg PO 14 PRN 14 Days #14 capsule PRN Reason: Anxiety DULoxetine HCL [Cymbalta] 60 mg PO HS 14 Days #14 cap traZODone HCL [Desyrel] 50 mg PO HS 14 Days #14 tab Nicotine 14Mg/24Hr Patch [Habitrol] 1 patch TRANSDERM DAILY 14 Days #14 patch amLODIPine [Norvasc] 5 mg PO DAILY 14 Days #14 tab Discharge Medication List Ammonium Lactate Lotion [Lac-Hydrin 12% Lotion] 1 applic TOPICAL BID 30 Days #1 each 02/28/25 [Rx] DULoxetine HCL [Cymbalta] 60 mg PO HS 14 Days #14 cap 02/28/25 [Rx] Ibuprofen [Motrin] 600 mg PO Q6HR PRN tab 02/28/25 [Rx] Nicotine 14Mg/24Hr Patch [Habitrol] 1 patch TRANSDERM DAILY 14 Days #14 patch 02/28/25 [Rx] amLODIPine [Norvasc] 5 mg PO DAILY 14 Days #14 tab 02/28/25 [Rx] hydrOXYzine pamoate [Vistaril] 50 mg PO 14 PRN 14 Days #14 capsule 02/28/25 [Rx] traZODone HCL [Desyrel] 50 mg PO HS 14 Days #14 tab 02/28/25 [Rx] Follow up Appointment(s)/Referral(s): [facility] [Outside] - 03/01/25 3:30 pm (03-01-25 @ 3:30 with Zak in [place] office 03-20-25 @ 8:30 with NP. Rani Quiros [facility] Internal Med,[facility] [NON-STAFF] - 1 Week Activity/Diet/Wound Care/Special Instructions: [facility] Discharge Info Avoid the use of street drugs and alcohol. Take all medications as prescribed. When you are in need of refills on your medications, please contact your outpatient medical provider and/or outpatient psychiatrist. Please go to your scheduled outpatient appointments for aftercare treatment. If symptoms return or become worse, call the crisis line at or and/or visit the nearest emergency room for assistance. [facility] Lifeline - call or text 988 Discharge Disposition: HOME SELF-CARE
[2025-02-28] MEDS ORDERED: DULoxetine HCL 60 MG CAPSULE.DR PO SCH (21:00)
== END 2025-02-28 12:48 | disposition home or self-care (01) | DRG 751 ==
LOC: 3MHU 17:15
PROVIDERS: ADMIT Psychiatry & Neurology Psychiatry; ATTEND Psychiatry & Neurology Psychiatry
DX: F33.2 Major depressive disorder, recurrent severe without psychotic features (principal); T43.65 Poisoning by, adverse effect of and underdosing of methamphetamines; T42.4X1D Poisoning by benzodiazepines, accidental (unintentional), subsequent encounter; T41.29 Poisoning by, adverse effect of and underdosing of other general anesthetics; Z56.0 Unemployment, unspecified; R45.851 Suicidal ideations; Z91.148 Patient's other noncompliance with medication regimen for other reason; I10 Essential (primary) hypertension; F41.1 Generalized anxiety disorder; F17.290 Nicotine dependence, other tobacco product, uncomplicated; G47.00 Insomnia, unspecified; F10.10 Alcohol abuse, uncomplicated; Z91.51 Personal history of suicidal behavior; Z71.51 Drug abuse counseling and surveillance of drug abuser; Z71.41 Alcohol abuse counseling and surveillance of alcoholic; Z88.8 Allergy status to other drugs, medicaments and biological substances

== ENCOUNTER 2025-04-09 07:56 | Emergency (ER) | payer OTHER ==
[2025-04-09 08:09] VITALS: TEMP 97.8
--- NOTE | 2025-04-09 08:10 | ED ---
General Adult HPI - General Stated complaint: SI Time Seen by Provider: 04/09/25 07:57 Source: patient, police, RN notes reviewed Mode of arrival: EMS Limitations: no limitations - History of Present Illness Initial comments: Patient is a 39-year-old male present to the emergency department with concerns for overdose. Patient reportedly took pills and ran from his house. Patient was found by police behind the house prior to arrival. Patient was unresponsive to officers. Patient previously has taken overdose of gamma hydroxybutyrate. Patient is disoriented when aroused to sternal rub. Patient unreliable with history - Related Data Previous Rx's Medication Instructions Recorded Ammonium Lactate Lotion 1 applic TOPICAL BID 30 Days #1 02/28/25 [Lac-Hydrin 12% Lotion] each DULoxetine HCL [Cymbalta] 60 mg PO HS 14 Days #14 cap 02/28/25 Ibuprofen [Motrin] 600 mg PO Q6HR PRN tab 02/28/25 Nicotine 14Mg/24Hr Patch [Habitrol] 1 patch TRANSDERM DAILY 14 Days 02/28/25 #14 patch amLODIPine [Norvasc] 5 mg PO DAILY 14 Days #14 tab 02/28/25 hydrOXYzine pamoate [Vistaril] 50 mg PO 14 PRN 14 Days #14 capsule 02/28/25 traZODone HCL [Desyrel] 50 mg PO HS 14 Days #14 tab 02/28/25 Allergies Allergy/AdvReac Type Severity Reaction Status Date / Time lisinopril Allergy Unknown - Verified 04/09/25 12:24 see comment Review of Systems ROS Statement: Those systems with pertinent positive or pertinent negative responses have been documented in the HPI. ROS Other: All systems not noted in ROS Statement are negative. Limitations: ROS unobtainable due to patients medical condition Past Medical History Past Medical History: No Reported History, Hypertension Additional Past Medical History / Comment(s): Migraines, syncope History of Any Multi-Drug Resistant Organisms: None Reported Past Surgical History: No Surgical Hx Reported Additional Past Surgical History / Comment(s): left hip repair Past Anesthesia/Blood Transfusion Reactions: No Reported Reaction Past Psychological History: Anxiety, Depression Smoking Status: Current some day smoker, Vaper Past Alcohol Use History: None Reported, Occasional Additional Past Alcohol Use History / Comment(s): patient has history of alcohol abuse, frequently relapses Past Drug Use History: None Reported, Marijuana General Exam Limitations: altered mental status, physical limitation General appearance: other (Drowsy, arousable to sternal rub.) Head exam: Present: atraumatic Eye exam: Present: normal appearance, PERRL, EOMI ENT exam: Present: normal oropharynx Neck exam: Present: normal inspection. Absent: tenderness Respiratory exam: Present: normal lung sounds bilaterally Cardiovascular Exam: Present: regular rate, normal rhythm GI/Abdominal exam: Present: soft. Absent: tenderness Extremities exam: Present: normal inspection. Absent: pedal edema, calf tenderness Neurological exam: Present: alert. Absent: motor sensory deficit Skin exam: Present: normal color Course Vital Signs 04/09/25 04/09/25 04/09/25 07:58 08:38 10:02 Temperature 97.8 F Pulse Rate 55 L 60 68 Respiratory 14 20 20 Rate Blood Pressure 147/101 O2 Sat by Pulse 96 98 98 Oximetry 04/09/25 12:18 Temperature Pulse Rate 72 Respiratory 16 Rate Blood Pressure 149/98 O2 Sat by Pulse 97 Oximetry EKG Findings - EKG Results: EKG: interpreted by ERMD (Prominent T waves), sinus rhythm, normal axis, normal QRS Medical Decision Making - Medical Decision Making Was pt. sent in by a medical professional or institution (, PA, DUST COLLECTOR ATTENDANT, urgent care, hospital, or correction...) When possible be specific @ -Patient was brought in by police officers Did you speak to anyone other than the patient for history (EMS, parent, family, police, friend...)? What history was obtained from this source @ -Please officer provides history as patient is unarousable on arrival Did you review nursing and triage notes (agree or disagree)? Why? @ -I reviewed and agree with nursing and triage notes Were old charts reviewed (outside hosp., previous admission, EMS record, old EKG, old radiological studies, urgent care reports/EKG's, correction records)? Report findings @ -No old charts were reviewed Differential Diagnosis (chest pain, altered mental status, abdominal pain women, abdominal pain men, vaginal bleeding, weakness, fever, dyspnea, syncope, headache, dizziness, GI bleed, back pain, seizure, CVA, palpatations, mental health, musculoskeletal)? @ -Differential Mental Health Depression, anxiety, bipolar, psychosis, schizophrenia, borderline personality, situational depression, adjustment disorder, behavioral disorder, brain tumor, malingering, substance abuse, encephalopathy, medication reaction, dementia, hypothyroidism, degenerative neurologic disorder, lupus.... This is not meant to be all-inclusive list EKG interpreted by me (3pts min.). @ -As above X-rays interpreted by me (1pt min.). @ -None done CT interpreted by me (1pt min.). @ -None done U/S interpreted by me (1pt. min.). @ -None done What testing was considered but not performed or refused? (CT, X-rays, U/S, labs)? Why? @ -None What meds were considered but not given or refused? Why? @ -None Did you discuss the management of the patient with other professionals (professionals i.e. , PA, DUST COLLECTOR ATTENDANT, lab, RT, psych nurse, social welfare administrator, runstitching machine operator, te acher, chief risk officer, case management associate)? Give summary @ -Case was discussed with psychiatric nurse with plans for discharge Was smoking cessation discussed for >3mins.? @ -No Was critical care preformed (if so, how long)? @ -No Were there social determinants of health that impacted care today? How? (Homelessness, low income, unemployed, alcoholism, drug addiction, transportation, low edu. Level, literacy, decrease access to med. care, long-term, rehab)? @ -No Was there de-escalation of care discussed even if they declined (Discuss DNR or withdrawal of care, Hospice)? DNR status @ -No What co-morbidities impacted this encounter? (DM, HTN, Smoking, COPD, CAD, Cancer, CVA, ARF, Chemo, Hep., AIDS, mental health diagnosis, sleep apnea, morbid obesity)? @ -History of previous overdose Was patient admitted / discharged? Hospital course, mention meds given and route, prescriptions, significant lab abnormalities, going to OR and other pertinent info. @ -Patient presents with overdose. On reevaluation patient is alert and appropriate and oriented. Patient seen by mental health and cleared. Patient reevaluated. Patient denies suicidal ideation. Patient contracts for safety. Patient advised to discontinue drug use and go to rehab. Undiagnosed new problem with uncertain prognosis? @ -No Drug Therapy requiring intensive monitoring for toxicity (Heparin, Nitro, Insulin, Cardizem)? @ -No Were any procedures done? @ -No Diagnosis/symptom? @ -Overdose Acute, or Chronic, or Acute on Chronic? @ -Acute Uncomplicated (without systemic symptoms) or Complicated (systemic symptoms)? @ -Default Side effects of treatment? @ -No Exacerbation, Progression, or Severe Exacerbation? @ -No Poses a threat to life or bodily function? How? (Chest pain, [place], [place], pneumonia, PE, COPD, DKA, ARF, appy, cholecystitis, CVA, Diverticulitis, Homicidal, Suicidal, threat to staff... and all critical care pts) @ -No - Lab Data Result diagrams: 04/09/25 08:13 04/09/25 08:13 Lab Results 04/09/25 04/09/25 Range/Units 08:13 08:13 WBC 12.25 H (4.50-10.00) 10*3/uL RBC 5.37 (4.40-5.60) 10*6/uL Hgb 15.3 (13.0-17.0) g/dL Hct 47.1 (39.6-50.0) % MCV 87.7 (80.0-97.0) fL MCH 28.5 (27.0-32.0) pg MCHC 32.5 (32.0-37.0) g/dL Plt Count 322 (140-440) 10*3/uL MPV 8.7 L (9.5-12.2) fL Immature Gran % (Auto) 0.3 % Neutrophils % 77.6 % Lymphocytes % 12.7 % Monocytes % 6.4 % Eosinophils % 2.3 % Basophils % 0.7 % Immature Gran # 0.04 (0.00-0.04) 10*3/uL Neutrophils # 9.50 H (1.80-7.70) 10*3/uL Lymphocytes # 1.56 (0.90-5.00) 10*3/uL Monocytes # 0.79 (0.20-1.00) 10*3/uL Eosinophils # 0.28 (0.04-0.35) 10*3/uL Basophils # 0.08 (0.00-0.10) 10*3/uL Sodium 142 (137-145) mmol/L Potassium 4.1 (3.5-5.1) mmol/L Chloride 106 (98-107) mmol/L Carbon Dioxide 26 (22-30) mmol/L Anion Gap 10 mmol/L BUN 16 (9-20) mg/dL Creatinine 0.96 (0.66-1.25) mg/dL Est GFR (CKD-EPI)AfAm >90 (>60 ml/min/1.73 sqM) Est GFR (CKD-EPI)NonAf >90 (>60 ml/min/1.73 sqM) Glucose 110 H (74-99) mg/dL Calcium 9.2 (8.4-10.2) mg/dL Total Bilirubin 0.5 (0.2-1.3) mg/dL AST 23 (17-59) U/L ALT 17 (4-49) U/L Alkaline Phosphatase 96 (38-126) U/L Total Protein 7.5 (6.3-8.2) g/dL Albumin 4.2 (3.5-5.0) g/dL Salicylates <1.0 mg/dL Acetaminophen <10.0 ug/mL Serum Alcohol <10 mg/dL Disposition Clinical Impression: Drug overdose Disposition: HOME SELF-CARE Condition: Stable Instructions (If sedation given, give patient instructions): Adult Overdose (ED) Additional Instructions: Discontinue drug use. Recommend rehab. Please follow-up with primary care physician next day or 2 for recheck. Return for thoughts of self-harm, worsening symptoms or other concerns. Is patient prescribed a controlled substance at d/c from ED?: No Referrals: None,Stated [Primary Care Provider] - 1-2 days Forms: Inp Substance Abuse Facilities, Outpatient Counseling, Outpatient Therapy List, Area PCPs Time of Disposition: 13:51
[2025-04-09 08:37] LABS: Basophils # (A) 0.08 10*3/uL (0.00-0.10); Basophils % (A) 0.7 %; Eosinophils # (A) 0.28 10*3/uL (0.04-0.35); Eosinophils % (A) 2.3 %; HCT 47.1 % (39.6-50.0); HGB 15.3 g/dL (13.0-17.0); Lymphocytes # (A) 1.56 10*3/uL (0.90-5.00); Lymphocytes % (A) 12.7 %; MCH 28.5 pg (27.0-32.0); MCHC 32.5 g/dL (32.0-37.0); MCV 87.7 fL (80.0-97.0); Mean Platelet Volume 8.7 fL (9.5-12.2); Monocytes # (A) 0.79 10*3/uL (0.20-1.00); Monocytes % (A) 6.4 %; Neutrophils % (A) 77.6 %; Platelet Count 322 10*3/uL (140-440); RBC 5.37 10*6/uL (4.40-5.60); RDW 12.9 % (11.5-14.5); WBC 12.25 10*3/uL (4.50-10.00)
[2025-04-09 08:53] LABS: ALT 17 U/L (4-49); AST 23 U/L (17-59); Acetaminophen <10.0 ug/mL; African American GFR (CKD) >90 (>60 ml/min/1.73 sqM); Albumin 4.2 g/dL (3.5-5.0); Alcohol <10 mg/dL; Alkaline Phosphatase 96 U/L (38-126); Anion Gap 10 mmol/L; Blood Urea Nitrogen 16 mg/dL (9-20); Calcium 9.2 mg/dL (8.4-10.2); Carbon Dioxide 26 mmol/L (22-30); Chloride 106 mmol/L (98-107); Glucose 110 mg/dL (74-99); Non-African American GFR(CKD) >90 (>60 ml/min/1.73 sqM); Potassium 4.1 mmol/L (3.5-5.1); Salicylate <1.0 mg/dL; Sodium 142 mmol/L (137-145); Total Bilirubin 0.5 mg/dL (0.2-1.3); Total Protein 7.5 g/dL (6.3-8.2)
[2025-04-09 12:19] VITALS: RESP 16
[2025-04-09] MEDS: IBUPROFEN 600 MG TAB PO STA (14:00)
[2025-04-09 14:09] VITALS: BP 128/93; PULSE 99
== END 2025-04-09 14:35 | disposition home or self-care (01) ==
LOC: EC 07:56
DX: T65.91XA Toxic effect of unspecified substance, accidental (unintentional), initial encounter (principal); F17.290 Nicotine dependence, other tobacco product, uncomplicated; Z88.8 Allergy status to other drugs, medicaments and biological substances
CPT/HCPCS: 36415; 93005; 80053; 85025; 80143; 80179; 99285; G0480; 80320